=== PATIENT | male | born 1960 | race Caucasian/White ===

== ENCOUNTER → 2016-07-31 | Outpatient (CLI) | payer OTHER ==
--- NOTE | 2016-08-02 11:11 | CARD ---
APPROVED REPORT EXAM: Two-dimensional and M-mode echocardiogram with Doppler and color Doppler. Other Information Quality : GoodHR: 86bpm Rhythm : NSR INDICATION Dizziness and Vertigo Shortness of breath 2D DIMENSIONS RVDd4.0 (2.9-3.5cm)Left Atrium(2D)3.9 (1.6-4.0cm) IVSd1.1 (0.7-1.1cm)Aortic Root(2D)3.5 (2.0-3.7cm) LVDd5.7 (3.9-5.9cm)LVOT Diameter2.6 (1.8-2.4cm) PWd1.0 (0.7-1.1cm)LVDs4.1 (2.5-4.0cm) FS (%) 28.1 %SV86.8 ml LVEF(%)53.7 (>50%) Aortic Valve AoV Peak Kaushik.125.2cm/sAoV VTI27.7cm AO Peak GR.6.3mmHgLVOT Peak Kaushik.92.9cm/s LVOT VTI 19.28cmAO Mean GR.4mmHg SURENDRA (VMAX)3.35mz6HNG (VTI)3.72cm2 Mitral Valve MV E Rbjtexfk99.2cm/sMV DECEL ZTXU384pr MV A Cjxjgtkw710.1cm/sMV E Mean Gr.3mmHg MV HOE25jwB/A Ratio0.9 MV A Xdvfrent38rpUOD (PHT)4.60cm2 TDI E/Lateral E'10.9E/Medial E'11.1 Pulmonary Valve PV Peak Lgksbbwa61.5cm/sPV Peak Grad.2mmHg RVOT VTI12.5cm Tricuspid Valve TR P. Vdsgszai055vp/sRAP SRGDEGTL0cuJj TR Peak Gr.82epEtOABX22qrUf Pulmonary Vein S1 Fhtmzwmt15.9cm/sD2 Mutdowdw78.3cm/s LEFT VENTRICLE The left ventricle is normal size. There is normal left ventricular wall thickness. Left ventricle sy stolic function is normal. The Ejection Fraction is 55-60%. There is normal LV segmental wall motion. Transmitral Doppler flow pattern is Grade I-abnormal relaxation pattern. There is no ventricular sep marshall defect visualized. RIGHT VENTRICLE The right ventricle is normal size. There is normal right ventricular wall thickness. The right ventr icular systolic function is normal. ATRIA The left atrium size is normal. The right atrium size is normal. The interatrial septum is intact wit h no evidence for an atrial septal defect or patent foramen ovale as noted on 2-D or Doppler imaging. AORTIC VALVE The aortic valve is normal in structure and function. The aortic valve is trileaflet. Doppler and Col or Flow revealed no significant aortic regurgitation. There is no significant aortic valvular stenosi s. MITRAL VALVE The mitral valve is normal in structure. There is no evidence of mitral valve prolapse. There is no m itral valve stenosis. Doppler and Color Flow revealed mild mitral regurgitation. TRICUSPID VALVE Doppler and Color Flow revealed trace tricuspid regurgitation. There is no pulmonary hypertension. Th e PA pressure was estimated at 24 mmHg. PULMONIC VALVE Doppler and Color Flow revealed trace pulmonic valvular regurgitation. GREAT VESSELS The aortic root is normal in size. The ascending aorta is normal in size. The pulmonary artery is not well visualized, but is probably normal size. Normal pulmonary venous flow (Doppler). The IVC is nor mal in size and collapses >50% with inspiration. PERICARDIAL EFFUSION There is no evidence of significant pericardial effusion. Critical Notification Critical Value: No <Conclusion> There is normal left ventricular wall thickness. Left ventricle systolic function is normal. The Ejection Fraction is 55-60%. Transmitral Doppler flow pattern is Grade I-abnormal relaxation pattern. There is no evidence of significant pericardial effusion. There is no mitral valve stenosis. Doppler and Color Flow revealed mild mitral regurgitation. The left atrium is of a normal size. There is no aortic stenosis or regurgitation The right ventricle is of a normal size with normal systolic function Doppler and Color Flow revealed trace tricuspid regurgitation. There is no pulmonary hypertension. The PA pressure was estimated at 24 mmHg. The pulmonic valve is normal.
== END | disposition home or self-care (01) ==
LOC: ECHO 07:11
PROVIDERS: ATTEND Internal Medicine Cardiovascular Disease
DX: R42 Dizziness and giddiness (principal); R60.0 Localized edema
CPT/HCPCS: 93306

== ENCOUNTER 2018-04-01 16:23 | Inpatient (IN) | payer OTHER ==
[~2018-04-01] VITALS: Ht 175.3 cm; Wt 133.4 kg
[2018-04-01 17:20] LABS: BASO # 0.1 x10^3/uL (0.0-0.2); BASO % 1 % (0-3); EOS # 0.1 x10^3/uL (0.0-0.7); EOS % 1 % (0-3); HEMATOCRIT 37.3 % (39.0-53.0); HEMOGLOBIN 12.3 g/dL (13.0-17.5); LYMPH # 0.9 x10^3/uL (1.0-4.8); LYMPH % 10 % (24-48); MEAN CORPUSCULAR HEMOGLOBIN 29 pg (25-35); MEAN CORPUSCULAR HGB CONC 33 g/dL (31-37); MEAN CORPUSCULAR VOLUME 88 fL (79-100); MONO # 0.8 x10^3/uL (0.0-1.1); MONO % 9 % (0-9); NEUT # 7.3 x10^3uL (1.8-7.7); NEUT % 80 % (31-73); PLATELET COUNT 264 x10^3/uL (140-400); RED BLOOD COUNT 4.23 x10^6/uL (4.30-5.70); RED CELL DISTRIBUTION WIDTH 15.1 % (11.5-14.5); WHITE BLOOD COUNT 9.2 x10^3/uL (4.0-11.0)
[2018-04-01 17:29] LABS: CALCIUM 7.1 mg/dL (8.5-10.1); CREATININE 6.5 mg/dL (0.7-1.3); GFR 8.8; POTASSIUM 3.2 mmol/L (3.5-5.1)
[2018-04-01 17:38] LABS: ALBUMIN 2.1 g/dL (3.4-5.0); ALBUMIN/GLOBULIN RATIO 0.4 (1.0-1.7); TOTAL BILIRUBIN 0.4 mg/dL (0.2-1.0); TOTAL PROTEIN 6.9 g/dL (6.4-8.2)
[2018-04-01] MEDS ORDERED: ONDANSETRON PF 4 MG/2 ML VIAL. IV PRN (18:30)
[2018-04-01] MEDS ORDERED: MORPHINE SULFATE 4 MG/ML VIAL. IV PRN (18:30)
[2018-04-01] MEDS ORDERED: ACETAMINOPHEN 325 MG TABLET. PO PRN (18:30)
--- NOTE | 2018-04-01 18:34 | PHYS DOC ---
Past Medical History Past Medical History: A-Fib, Diabetes-Type II, High Cholesterol, Renal Failure Past Surgical History: Appendectomy Alcohol Use: None Drug Use: None Adult General Chief Complaint Chief Complaint: CHEST PAIN HPI HPI Patient is a 57 year old male who presents with shortness of breath. Patient has had progressive dyspnea over the last 7-10 days. He came to the ER today because of shortness of breath became too severe. He also had some lower extremity edema. Patient is known to have kidney disease but has not previously undergone dialysis. He denies chest pain. He has no nausea or vomiting. Denies abdominal pain. Review of Systems Review of Systems Constitutional: Denies fever or chills Eyes: Denies change in visual acuity HENT: Denies nasal congestion Respiratory: Denies cough Cardiovascular: No additional information not addressed in HPI GI: Denies abdominal pain : Denies dysuria or hematuria Musculoskeletal: Denies back pain Integument: Denies rash Neurologic: Denies focal neuro complaints All other systems were reviewed and found to be within normal limits, except as documented in this note. Current Medications Current Medications Current Medications Medications (Trade) Dose Ordered Sig/Ayo Start Time Stop Time Status Last Admin Dose Admin Acetaminophen (Tylenol) 650 mg PRN Q4HRS PRN 04/01/18 18:30 04/02/18 18:29 Diltiazem HCl (Cardizem) 10 mg 1X ONCE 04/01/18 18:45 04/01/18 18:46 04/01/18 18:30 10 MG Diltiazem HCl 125 mg/Dextrose 125 ml @ 10 mls/hr 1X ONCE 04/01/18 18:45 04/02/18 07:14 Morphine Sulfate (Morphine Sulfate) 4 mg PRN Q2HR PRN 04/01/18 18:30 04/02/18 18:29 Ondansetron HCl (Zofran) 4 mg PRN Q8HRS PRN 04/01/18 18:30 04/02/18 18:29 Allergies Allergies Allergies Coded Allergies Type Severity Reaction Last Updated Verified No Known Drug Allergies 04/01/18 No Physical Exam Physical Exam Constitutional: Well developed, obese male in mild respiratory distress HENT: Normocephalic, atraumatic, bilateral external ears normal, oropharynx moist Eyes: PERRLA, EOMI Neck: Normal range of motion Cardiovascular:Heart rate regular rhythm, no murmur Lungs & Thorax: diminished with some expiratory wheezes Abdomen: Bowel sounds normal, soft, no tenderness, Skin: Warm, dry Extremities: 3+ edema bilateral lower extremities Neurologic: Alert and oriented X 3 Psychologic: Affect normal Current Patient Data Vital Signs Vital Signs Date Time Temp Pulse Resp B/P (MAP) Pulse Ox O2 Delivery O2 Flow Rate FiO2 04/01/18 18:30 130 131/62 04/01/18 16:34 97.8 22 97 Room Air 97.8 Lab Values Laboratory Tests Test 04/01/18 17:05 White Blood Count 9.2 x10^3/uL (4.0-11.0) Red Blood Count 4.23 x10^6/uL (4.30-5.70) L Hemoglobin 12.3 g/dL (13.0-17.5) L Hematocrit 37.3 % (39.0-53.0) L Mean Corpuscular Volume 88 fL (79-100) Mean Corpuscular Hemoglobin 29 pg (25-35) Mean Corpuscular Hemoglobin Concent 33 g/dL (31-37) Red Cell Distribution Width 15.1 % (11.5-14.5) H Platelet Count 264 x10^3/uL (140-400) Neutrophils (%) (Auto) 80 % (31-73) H Lymphocytes (%) (Auto) 10 % (24-48) L Monocytes (%) (Auto) 9 % (0-9) Eosinophils (%) (Auto) 1 % (0-3) Basophils (%) (Auto) 1 % (0-3) Neutrophils # (Auto) 7.3 x10^3uL (1.8-7.7) Lymphocytes # (Auto) 0.9 x10^3/uL (1.0-4.8) L Monocytes # (Auto) 0.8 x10^3/uL (0.0-1.1) Eosinophils # (Auto) 0.1 x10^3/uL (0.0-0.7) Basophils # (Auto) 0.1 x10^3/uL (0.0-0.2) Sodium Level 139 mmol/L (136-145) Potassium Level 3.2 mmol/L (3.5-5.1) L Chloride Level 103 mmol/L (98-107) Carbon Dioxide Level 24 mmol/L (21-32) Anion Gap 12 (6-14) Blood Urea Nitrogen 62 mg/dL (8-26) H Creatinine 6.5 mg/dL (0.7-1.3) H Estimated GFR (Cockcroft-Gault) 8.8 BUN/Creatinine Ratio 10 (6-20) Glucose Level 107 mg/dL (70-99) H Calcium Level 7.1 mg/dL (8.5-10.1) L Phosphorus Level 6.6 mg/dL (2.6-4.7) H Magnesium Level 2.6 mg/dL (1.8-2.4) H Total Bilirubin 0.4 mg/dL (0.2-1.0) Aspartate Amino Transferase (AST) 30 U/L (15-37) Alanine Aminotransferase (ALT) 10 U/L (16-63) L Alkaline Phosphatase 106 U/L (46-116) Troponin I Quantitative < 0.017 ng/mL (0.000-0.055) WG-Flr-D-Type Natriuretic Peptide > 65474 pg/mL (0-124) H Total Protein 6.9 g/dL (6.4-8.2) Albumin 2.1 g/dL (3.4-5.0) L Albumin/Globulin Ratio 0.4 (1.0-1.7) L Laboratory Tests 04/01/18 17:05 Laboratory Tests 04/01/18 17:05 EKG EKG Atrial Fibrillation Radiology/Procedures Radiology/Procedures CXR: Vascular congestion Course & Med Decision Making Course & Med Decision Making Pertinent Labs and Imaging studies reviewed. (See chart for details) I saw this patient briefly. The patient was a turnover from the mid-level practitioner. Plan was for admission to the hospital. Dr. Welch had already been contacted. Dr. Scruggs had already been consulted and evaluated the patient. He recommended diltiazem 10 mg bolus and 10 mg drip which is started in the emergency department. I did reexamine this patient. He has prolonged x-ray phase and some extra wheezes with mild dyspnea. His oxygen saturation is 95%. I recommended he be placed on some oxygen per nasal cannula to see if this subjectively made him feel better. I also ordered and an albuterol treatment. Patient will be admitted to the telemetry [facility]. Patient has no chest pain or other acute complaints at this time. Maria Antonia Royimer Dragon Disclaimer This electronic medical record was generated, in whole or in part, using a voice recognition dictation system. Departure Departure Impression: Primary Impression: Acute renal failure Additional Impression: Atrial fibrillation Disposition: 09 ADMITTED INPATIENT Condition: STABLE Problem Qualifiers GINGER MARTINEZ DO Apr 01, 2018 18:34
[2018-04-01] MEDS ORDERED: dilTIAZem IV PUSH 25 MG/5 ML VIAL IVP ONE (18:45)
[2018-04-01] MEDS ORDERED: dilTIAZem INJ 125 MG in IV DEXTROSE 5% 100ML 100 ML IV ONE (18:45)
[2018-04-01] MEDS ORDERED: ALBUTEROL SULFATE 2.5 MG/3 ML NEBU. NEB ONE (19:15)
[2018-04-01] MEDS ORDERED: PIOG30TA41 PO (20:09)
[2018-04-01] MEDS ORDERED: ATOR40TA PO (20:10)
[2018-04-01] MEDS ORDERED: FURO80TA72 PO (20:10)
[2018-04-01] MEDS ORDERED: INSU100I13 SQ (20:11)
[2018-04-01] MEDS: HYDROcodone/APAP 5/325MG 1 TAB TABLET PO PRN (20:33)
[2018-04-01] MEDS: INSULIN GLARGINE 300 UNITS/3 ML INSULN.PEN. SQ SCH (20:50)
[2018-04-01 20:53] LABS: BILIRUBIN,URINE NEGATIVE (NEG); CLARITY,URINE CLEAR; COLOR,URINE YELLOW; NITRITE,URINE NEGATIVE (NEG); PH,URINE 5.5; PROTEIN,URINE >=300 mg/dL (NEG-TRACE); UROBILINOGEN,URINE 0.2 mg/dL (0.2 mg/dL)
[2018-04-01 20:58] LABS: AMORPHOUS SEDIMENT,UR PRESENT /HPF; BACTERIA,URINE 0 /HPF (0-FEW); HYALINE CASTS, URINE FEW /HPF; RBC,URINE OCC /HPF (0-2); SQUAMOUS EPITHELIAL CELL,UR OCC /LPF
[2018-04-01 20:59] LABS: GRANULAR CASTS,URINE OCCASIONAL /HPF
[2018-04-01 21:00] VITALS: BP 111/79
[2018-04-01 22:00] VITALS: BP 144/73
[2018-04-01 23:00] VITALS: BP 127/67
[2018-04-01 23:59] VITALS: BP 125/79
[2018-04-02] VITALS (13 sets, daily range): BP systolic 108–153; BP diastolic 65–89
[2018-04-02] MEDS: dilTIAZem INJ 125 MG in IV DEXTROSE 5% 100ML 100 ML IV PRN ×3 (02:55→20:57)
[2018-04-02 05:00] LABS: BASO # 0.1 x10^3/uL (0.0-0.2); BASO % 1 % (0-3); EOS % 0 % (0-3); HEMOGLOBIN 11.8 g/dL (13.0-17.5); LYMPH # 0.6 x10^3/uL (1.0-4.8); LYMPH % 4 % (24-48); MEAN CORPUSCULAR HEMOGLOBIN 29 pg (25-35); MEAN CORPUSCULAR HGB CONC 33 g/dL (31-37); MEAN CORPUSCULAR VOLUME 88 fL (79-100); MONO # 1.2 x10^3/uL (0.0-1.1); MONO % 8 % (0-9); NEUT # 12.9 x10^3uL (1.8-7.7); NEUT % 87 % (31-73); PLATELET COUNT 272 x10^3/uL (140-400); RED BLOOD COUNT 4.09 x10^6/uL (4.30-5.70); RED CELL DISTRIBUTION WIDTH 14.6 % (11.5-14.5); WHITE BLOOD COUNT 14.9 x10^3/uL (4.0-11.0)
[2018-04-02 05:16] LABS: CALCIUM 7.1 mg/dL (8.5-10.1); GFR 8.1; POTASSIUM 3.3 mmol/L (3.5-5.1)
--- NOTE | 2018-04-02 06:19 | EKG ---
[facility] [address] [place] [address] Test Date: 2018-04-01 Test Time: 16:31:53 Pat Name: MIRACLE MASON Department: Room: 268 1 Gender: M Clay Miller: : 1960 Requested By: DESIREE TAPIA Order Number: [id number] Reading MD: Faraz Garcia Measurements Intervals [place] Rate: 136 P: WI: QRS: -16 QRSD: 84 T: 32 QT: 330 QTc: 500 Interpretive Statements ATRIAL FIBRILLATION Electronically Signed On 04-03-2018 11:24:39 CDT by Faraz Garcia
[2018-04-02 07:41] LABS: % BANDS 5 % (0-9); % LYMPHS 9 % (24-48); % MONOS 5 % (0-10); % SEGS 81 % (35-66); PLT ESTIMATE ADEQUATE (ADEQUATE)
[2018-04-02] MEDS ORDERED: LIDOCAINE WITH 8.4% SOD BICARB 3 ML DISP.SYRIN. ONE (08:14)
[2018-04-02] MEDS ORDERED: HEPARIN for IV BOLUS 10,000 UNIT/10 ML VIAL. ONE (08:16)
--- NOTE | 2018-04-02 08:22 | RAD ---
CHEST AP ONLY Clinical Indication: ATRAUMATIC CHEST PAIN, SHORTNESS OF AIR X2 DAYS. Hx Afib, DIABETES. Comparison: None. Findings: Cardiac size upper limits of normal. Calcified granuloma left midlung. Mild left basilar airspace disease. Mild elevation right hemidiaphragm. There is no pneumothorax. No pleural effusion is appreciated. No acute bone abnormality. IMPRESSION: Mild left basilar airspace disease. Electronically signed by: Nicolas Huang MD (04/02/2018 8:19 AM) [id number]
--- NOTE | 2018-04-02 08:47 | PDOC2 ---
CONSULT Date of Consult Date of Consult DATE: 04/02/18 TIME: 08:39 Reason for Consult Reason for Consult: shortness of breath, afib Referring Physician Referring Physician: Dr. Juan Welch Identification/Chief Complaint Chief Complaint shortness of breath Source Source: Patient History of Present Illness Reason for Visit: Travon Garcia is a 57 year old male with history of CKD, presenting to the with progressive shortness of breath over the past one week. When he woke up on 04/01 , he said he could barely breath, so he asked his brother to bring him to the ED. While in the ED, he was found to be in afib with RVR of 130s, and was started on a diltiazam drip, with his rate slowing to the low 100s. The patient has had to remain on NC-3L since coming into the hospital. At this time his shortness of breath has much improved, but he has still required to remain on the oxygen. He denies any chest pain throughout the last week and hospitalization. He denies having symptoms like this in the past. Past Medical History Cardiovascular: HTN, Other (patient had history of rheumatic fever, was treated from age [age]) Pulmonary: No pertinent hx GI: No pertinent hx Heme/Onc: No pertinent hx Hepatobiliary: No pertinent hx Psych: No pertinent hx Renal/: Chronic renal failure (CKD secondary to diabetes, never been on dialysis) Endocrine: Diabetes Social History No ALCOHOL: none Drugs: None Current Problem List Problem List Problems Medical Problems: (1) Acute renal failure Status: Acute (2) Atrial fibrillation Status: Acute Current Medications Current Medications Current Medications Diltiazem HCl (Cardizem) 10 mg 1X ONCE IVP Last administered on 04/01/18at 18: 30; Start 04/01/18 at 18:45; Stop 04/01/18 at 18:46; Status DC Diltiazem HCl 125 mg/Dextrose 125 ml @ 10 mls/hr 1X ONCE IV Last administered on 04/01/18at 20:34; Start 04/01/18 at 18:45; Stop 04/02/18 at 07 :14; Status DC Ondansetron HCl (Zofran) 4 mg PRN Q8HRS PRN IV NAUSEA/VOMITING; Start at 18:30; Stop 04/02/18 at 18:29 Morphine Sulfate (Morphine Sulfate) 4 mg PRN Q2HR PRN IV PAIN Last administered on 04/01/18at 21:39; Start 04/01/18 at 18:30; Stop 04/02/18 at 18 :29 Acetaminophen (Tylenol) 650 mg PRN Q4HRS PRN PO FEVER; Start 04/01/18 at 18:30 ; Stop 04/02/18 at 18:29 Albuterol Sulfate (Ventolin Neb Soln) 2.5 mg 1X ONCE NEB Last administered on 04/01/18at 20:53; Start 04/01/18 at 19:15; Stop 04/01/18 at 19:16; Status DC Acetaminophen/ Hydrocodone Bitart (Lortab 5/325) 1 tab PRN Q4HRS PRN PO PAIN Last administered on 04/01/18at 20:33; Start 04/01/18 at 20:15 Atorvastatin Calcium (Lipitor) 40 mg DAILY08 PO ; Start 04/02/18 at 08:00 Insulin Glargine (Lantus) 14 units QHS SQ Last administered on 04/01/18at 20:50 ; Start 04/01/18 at 21:00 Diltiazem HCl 125 mg/Dextrose 125 ml @ 5 mls/hr CONT PRN IV SEE I/O RECORD Last administered on 04/02/18at 02:55; Start 04/02/18 at 01:45 Lidocaine/Sodium Bicarbonate (Buffered Lidocaine 1%) 3 ml STK-MED ONCE .ROUTE ; Start 04/02/18 at 08:14; Stop 04/02/18 at 08:15; Status DC Heparin Sodium (Porcine) (Heparin Sodium) 10,000 unit STK-MED ONCE .ROUTE ; Start 04/02/18 at 08:16; Stop 04/02/18 at 08:17; Status DC Active Scripts Active Reported Lantus Solostar (Insulin Glargine,Hum.rec.anlog) 100 Unit/1 Ml Insuln.pen 14 Unit SQ QHS Lasix (Furosemide) 80 Mg Tablet 1 Tab PO DAILY Lipitor (Atorvastatin Calcium) 40 Mg Tablet 1 Tab PO DAILY08 Actos (Pioglitazone Hcl) 30 Mg Tablet 1 Tab PO DAILY Allergies Allergies: Coded Allergies: No Known Drug Allergies (Unverified , 04/01/18) ROS General: No: Chills, Fatigue, Malaise Eyes: No Blurry vision, No Decreased vision, No Double vision, No Loss of vision HEENT: No: Heacaches, Visual Changes, Tinnitus, Vertigo Respiratory: YES: Shortness of breath (shortness of breath resolving from 04/01 ) Cardiovascular: yes Edema; No Chest Pain Gastrointestinal: No Nausea, No Vomiting, No Abdominal Pain Physical Exam General: Alert, Oriented X3, Cooperative, No acute distress Lungs: Clear to auscultation, Normal air movement Heart: Other (irreguarly irregular rhytmn, S1, S1, no murmur rubs or gallops) Extremities: No clubbing, No cyanosis, Other (lower extremity edema +2/4) Vitals VITALS Vital Signs Date Time Temp Pulse Resp B/P (MAP) Pulse Ox O2 Delivery O2 Flow Rate FiO2 04/02/18 05:07 107 20 115/65 (82) 93 Nasal Cannula 3.0 04/02/18 02:59 98.1 98.1 Labs Labs Laboratory Tests Test 04/01/18 17:05 04/01/18 20:30 04/01/18 20:42 04/02/18 04:40 White Blood Count 9.2 x10^3/uL (4.0-11.0) 14.9 x10^3/uL (4.0-11.0) Red Blood Count 4.23 x10^6/uL (4.30-5.70) 4.09 x10^6/uL (4.30-5.70) Hemoglobin 12.3 g/dL (13.0-17.5) 11.8 g/dL (13.0-17.5) Hematocrit 37.3 % (39.0-53.0) 36.0 % (39.0-53.0) Mean Corpuscular Volume 88 fL (79-100) 88 fL (79-100) Mean Corpuscular Hemoglobin 29 pg (25-35) 29 pg (25-35) Mean Corpuscular Hemoglobin Concent 33 g/dL (31-37) 33 g/dL (31-37) Red Cell Distribution Width 15.1 % (11.5-14.5) 14.6 % (11.5-14.5) Platelet Count 264 x10^3/uL (140-400) 272 x10^3/uL (140-400) Neutrophils (%) (Auto) 80 % (31-73) 87 % (31-73) Lymphocytes (%) (Auto) 10 % (24-48) 4 % (24-48) Monocytes (%) (Auto) 9 % (0-9) 8 % (0-9) Eosinophils (%) (Auto) 1 % (0-3) 0 % (0-3) Basophils (%) (Auto) 1 % (0-3) 1 % (0-3) Neutrophils # (Auto) 7.3 x10^3uL (1.8-7.7) 12.9 x10^3uL (1.8-7.7) Lymphocytes # (Auto) 0.9 x10^3/uL (1.0-4.8) 0.6 x10^3/uL (1.0-4.8) Monocytes # (Auto) 0.8 x10^3/uL (0.0-1.1) 1.2 x10^3/uL (0.0-1.1) Eosinophils # (Auto) 0.1 x10^3/uL (0.0-0.7) 0.0 x10^3/uL (0.0-0.7) Basophils # (Auto) 0.1 x10^3/uL (0.0-0.2) 0.1 x10^3/uL (0.0-0.2) Sodium Level 139 mmol/L (136-145) 141 mmol/L (136-145) Potassium Level 3.2 mmol/L (3.5-5.1) 3.3 mmol/L (3.5-5.1) Chloride Level 103 mmol/L (98-107) 103 mmol/L (98-107) Carbon Dioxide Level 24 mmol/L (21-32) 25 mmol/L (21-32) Anion Gap 12 (6-14) 13 (6-14) Blood Urea Nitrogen 62 mg/dL (8-26) 62 mg/dL (8-26) Creatinine 6.5 mg/dL (0.7-1.3) 7.0 mg/dL (0.7-1.3) Estimated GFR (Cockcroft-Gault) 8.8 8.1 BUN/Creatinine Ratio 10 (6-20) Glucose Level 107 mg/dL (70-99) 99 mg/dL (70-99) Calcium Level 7.1 mg/dL (8.5-10.1) 7.1 mg/dL (8.5-10.1) Phosphorus Level 6.6 mg/dL (2.6-4.7) Magnesium Level 2.6 mg/dL (1.8-2.4) Total Bilirubin 0.4 mg/dL (0.2-1.0) Aspartate Amino Transf (AST/SGOT) 30 U/L (15-37) Alanine Aminotransferase (ALT/SGPT) 10 U/L (16-63) Alkaline Phosphatase 106 U/L (46-116) Troponin I Quantitative < 0.017 ng/mL (0.000-0.055) OX-Akh-Y-Type Natriuretic Peptide > 69093 pg/mL (0-124) Total Protein 6.9 g/dL (6.4-8.2) Albumin 2.1 g/dL (3.4-5.0) Albumin/Globulin Ratio 0.4 (1.0-1.7) Urine Collection Type Unknown Urine Color Yellow Urine Clarity Clear Urine pH 5.5 Urine Specific Morgan 1.020 Urine Protein >=300 mg/dL (NEG-TRACE) Urine Glucose (UA) 100 mg/dL (NEG) Urine Ketones (Stick) Trace mg/dL (NEG) Urine Blood Small (NEG) Urine Nitrite Negative (NEG) Urine Bilirubin Negative (NEG) Urine Urobilinogen Dipstick 0.2 mg/dL (0.2 mg/dL) Urine Leukocyte Esterase Negative (NEG) Urine RBC Occ /HPF (0-2) Urine WBC 5-10 /HPF (0-4) Urine Squamous Epithelial Cells Occ /LPF Urine Amorphous Sediment Present /HPF Urine Bacteria 0 /HPF (0-FEW) Urine Hyaline Casts Few /HPF Urine Granular Casts Occasional /HPF Urine Mucus Slight /LPF Glucose (Fingerstick) 152 mg/dL (70-99) Segmented Neutrophils % 81 % (35-66) Band Neutrophils % 5 % (0-9) Lymphocytes % 9 % (24-48) Monocytes % 5 % (0-10) Platelet Estimate Adequate (ADEQUATE) Laboratory Tests Test 04/01/18 17:05 04/01/18 20:30 04/01/18 20:42 10/24/18 04:40 White Blood Count 9.2 x10^3/uL (4.0-11.0) 14.9 x10^3/uL (4.0-11.0) Red Blood Count 4.23 x10^6/uL (4.30-5.70) 4.09 x10^6/uL (4.30-5.70) Hemoglobin 12.3 g/dL (13.0-17.5) 11.8 g/dL (13.0-17.5) Hematocrit 37.3 % (39.0-53.0) 36.0 % (39.0-53.0) Mean Corpuscular Volume 88 fL (79-100) 88 fL (79-100) Mean Corpuscular Hemoglobin 29 pg (25-35) 29 pg (25-35) Mean Corpuscular Hemoglobin Concent 33 g/dL (31-37) 33 g/dL (31-37) Red Cell Distribution Width 15.1 % (11.5-14.5) 14.6 % (11.5-14.5) Platelet Count 264 x10^3/uL (140-400) 272 x10^3/uL (140-400) Neutrophils (%) (Auto) 80 % (31-73) 87 % (31-73) Lymphocytes (%) (Auto) 10 % (24-48) 4 % (24-48) Monocytes (%) (Auto) 9 % (0-9) 8 % (0-9) Eosinophils (%) (Auto) 1 % (0-3) 0 % (0-3) Basophils (%) (Auto) 1 % (0-3) 1 % (0-3) Neutrophils # (Auto) 7.3 x10^3uL (1.8-7.7) 12.9 x10^3uL (1.8-7.7) Lymphocytes # (Auto) 0.9 x10^3/uL (1.0-4.8) 0.6 x10^3/uL (1.0-4.8) Monocytes # (Auto) 0.8 x10^3/uL (0.0-1.1) 1.2 x10^3/uL (0.0-1.1) Eosinophils # (Auto) 0.1 x10^3/uL (0.0-0.7) 0.0 x10^3/uL (0.0-0.7) Basophils # (Auto) 0.1 x10^3/uL (0.0-0.2) 0.1 x10^3/uL (0.0-0.2) Sodium Level 139 mmol/L (136-145) 141 mmol/L (136-145) Potassium Level 3.2 mmol/L (3.5-5.1) 3.3 mmol/L (3.5-5.1) Chloride Level 103 mmol/L (98-107) 103 mmol/L (98-107) Carbon Dioxide Level 24 mmol/L (21-32) 25 mmol/L (21-32) Anion Gap 12 (6-14) 13 (6-14) Blood Urea Nitrogen 62 mg/dL (8-26) 62 mg/dL (8-26) Creatinine 6.5 mg/dL (0.7-1.3) 7.0 mg/dL (0.7-1.3) Estimated GFR (Cockcroft-Gault) 8.8 8.1 BUN/Creatinine Ratio 10 (6-20) Glucose Level 107 mg/dL (70-99) 99 mg/dL (70-99) Calcium Level 7.1 mg/dL (8.5-10.1) 7.1 mg/dL (8.5-10.1) Phosphorus Level 6.6 mg/dL (2.6-4.7) Magnesium Level 2.6 mg/dL (1.8-2.4) Total Bilirubin 0.4 mg/dL (0.2-1.0) Aspartate Amino Transf (AST/SGOT) 30 U/L (15-37) Alanine Aminotransferase (ALT/SGPT) 10 U/L (16-63) Alkaline Phosphatase 106 U/L (46-116) Troponin I Quantitative < 0.017 ng/mL (0.000-0.055) WQ-Izh-A-Type Natriuretic Peptide > 96937 pg/mL (0-124) Total Protein 6.9 g/dL (6.4-8.2) Albumin 2.1 g/dL (3.4-5.0) Albumin/Globulin Ratio 0.4 (1.0-1.7) Urine Collection Type Unknown Urine Color Yellow Urine Clarity Clear Urine pH 5.5 Urine Specific Morgan 1.020 Urine Protein >=300 mg/dL (NEG-TRACE) Urine Glucose (UA) 100 mg/dL (NEG) Urine Ketones (Stick) Trace mg/dL (NEG) Urine Blood Small (NEG) Urine Nitrite Negative (NEG) Urine Bilirubin Negative (NEG) Urine Urobilinogen Dipstick 0.2 mg/dL (0.2 mg/dL) Urine Leukocyte Esterase Negative (NEG) Urine RBC Occ /HPF (0-2) Urine WBC 5-10 /HPF (0-4) Urine Squamous Epithelial Cells Occ /LPF Urine Amorphous Sediment Present /HPF Urine Bacteria 0 /HPF (0-FEW) Urine Hyaline Casts Few /HPF Urine Granular Casts Occasional /HPF Urine Mucus Slight /LPF Glucose (Fingerstick) 152 mg/dL (70-99) Segmented Neutrophils % 81 % (35-66) Band Neutrophils % 5 % (0-9) Lymphocytes % 9 % (24-48) Monocytes % 5 % (0-10) Platelet Estimate Adequate (ADEQUATE) Assessment/Plan Assessment/Plan This patient comes in with dyspnea and appears to be overloaded at this time. He has chronic renal failure and the creatinine is over 6 at this point. I agree with the evaluation of the patient and that he needs to have a dialysis catheter inserted and to start with hemodialysis. He arrived in atrial fibrillation with a rapid ventricular response and a Cardizem drip was started to control the rate. I would continue with the drip and in the morning if the rhythm is stable we will switch him to by mouth Cardizem. Thank you very much for asking me to participate in the care of this patient DANTE FERNÁNDEZ MD Apr 02, 2018 08:47
[2018-04-02] MEDS ORDERED: LIDOCAINE WITH 8.4% SOD BICARB 3 ML DISP.SYRIN. INJ ONE (09:30)
--- NOTE | 2018-04-02 10:39 | HP ---
ADMIT DATE: 04/01/2018 CHIEF COMPLAINT AND HISTORY OF PRESENT ILLNESS: This is a 57-year-old white male who is well known to me from followup in the office. The patient is known to have end-stage renal disease and had an AV shunt fistula placed some 2 weeks ago; and he got feeling much worse with shortness of breath, progressive tiredness and decreased appetite and came to the Emergency Room, where it was felt he was in congestive heart failure with fluid overload diffusely with anasarca, BNP greater than 35,000 and admitted for placement of a dialysis catheter and beginning dialysis, as his AV fistula is not mature enough at this point to use. PAST MEDICAL HISTORY: Remarkable for the renal failure, hyperlipidemia, diabetes and AFib. PAST SURGICAL HISTORY: Remarkable for an appendectomy. MEDICATIONS: Medications were brought with the patient, listed on the computer and have been addressed. ALLERGIES: He has no known drug allergies. SOCIAL HISTORY: Noncontributory. FAMILY HISTORY: Noncontributory. REVIEW OF SYSTEMS: As mentioned above. PHYSICAL EXAMINATION: GENERAL: He is a well-developed, well-nourished male, who just finished vomiting and appears miserable. VITAL SIGNS: Stable. He is afebrile. Pulse is elevated in the 120s. HEAD, EYES, EARS, NOSE AND THROAT: Unremarkable. NECK: Supple, without any thyromegaly. CHEST: Reveals occasional crackles. HEART: Irregularly irregular with a rate of 120. ABDOMEN: Soft, nontender, without hepatosplenomegaly or mass. EXTREMITIES: Reveal 3+ edema. NEUROLOGICAL EXAMINATION: Intact. Family members are present at the bedside. LABORATORY DATA: Initial laboratory is remarkable for potassium of 3.2, BUN of 62 and creatinine 6.5. BNP greater than 35,000. Albumin is 2.1. Initial white count is 9200, hemoglobin 12.3 and platelet count 264,000. Urinalysis is unremarkable and chest x-ray shows no acute changes. IMPRESSION: 1. End-stage renal disease with azotemia, fluid overload and congestive heart failure. 2. Atrial fibrillation. 3. Diabetes. PLAN: The patient has been admitted. He is on a Cardizem drip for the AFib with a rapid ventricular response. We will get dialysis catheter with dialysis to start on 04/02/2018 and we will follow him. RERE MCGARRY MD DR: Cookie JOB#: [id number] / [id number]
[2018-04-02] MEDS: ATORVASTATIN CALCIUM 40 MG TABLET. PO SCH (11:17)
[2018-04-02] MEDS ORDERED: IV NORMAL SALINE 1000ML BAG 1,000 ML IV PRN ×2 (11:28)
[2018-04-02] MEDS ORDERED: DIALYSIS PATIENT. MC PRN ×2 (11:30)
--- NOTE | 2018-04-02 11:49 | RAD ---
Procedure: Temporary hemodialysis catheter placement under fluoroscopy Clinical Indication: 57-year-old with acute renal failure requiring hemodialysis Sedation: Local anesthesia only Antibiotics: None Fluoro Time: 0.2 minutes. Images: 1 Contrast: None Sterility: All elements of maximal sterile barrier technique including the use of a cap, mask, sterile gown, sterile gloves, large sterile sheet, appropriate hand hygiene, and 2% chlorhexidine for cutaneous antisepsis (or acceptable alternative antiseptic per current guidelines) were followed for this procedure. Consent: The procedure was explained in its entirety to the patient or the patients designated product support sales representative by a member of the treatment team, including a discussion of the risks, benefits and commonly accepted alternatives to the procedure, as well as the expected consequences of no therapy whatsoever. Discussion of the risks included, but was not limited to, those that are most frequent and those that are rare but possibly severe or life-threatening, as well as the possibility of unforeseen complications. Technique and Findings: Following informed consent, the patient was prepped and draped in the usual sterile fashion. Ultrasound interrogation of the right neck revealed patency and compressibility of the right internal jugular vein. A 21-gauge micropuncture needle was used to gain access to this vein after 1% Lidocaine was used to achieve local anesthesia. A hardcopy ultrasound image was recorded. The needle was exchanged over a wire for serial dilators followed by a 20 cm Schon temporary hemodialysis catheter which was deployed under fluoroscopic guidance such that the distal tip resided in the mid right atrium. The catheter flow rates were assessed manually and found to be excellent. The catheter was then flushed, packed with Heparin, capped, and sutured to the skin. Complications: No immediate Impression: 1. Ultrasound and fluoroscopic guided placement of a temporary hemodialysis catheter which exhibits excellent manual flow rates as described.
--- NOTE | 2018-04-02 12:33 | PDOC2 ---
CONSULT Date of Consult Date of Consult DATE: 04/02/18 TIME: 12:27 Reason for Consult Reason for Consult: RENAL FAILURE Referring Physician Referring Physician: MALGORZATA Identification/Chief Complaint Chief Complaint SOB Source Source: Chart review, Patient History of Present Illness Reason for Visit: THIS IS A 57 YR WITH ADVANCE CKD STAGE 4. HE HAS PROGRESSION LATELY AND NOW COMES IN WITH SOB, LE EDEMA AND AFIB RVR. HIS CR IS 7.0. HE HAS CKD DUE TO DM II AND HTN. NO OTHER HX NOTED. NO CHEST PAIN REPORTED BUT DID HAVE PALPITATIONS AND ASSOCIATED SOB. LABS ARE C/W ESRD. HE HAS BEEN PREPARING TO START HD. HE DOES HAVE AN AVF IN THE LEFT ARM PLACED ABOUT 2 WEEKS AGO AND IT IS CLEARLY NOT MATURE YET FOR CANNULATION Past Medical History Cardiovascular: HTN, Other (patient had history of rheumatic fever, was treated from age [age]) Pulmonary: No pertinent hx GI: No pertinent hx Heme/Onc: No pertinent hx Hepatobiliary: No pertinent hx Psych: No pertinent hx Renal/: Chronic renal failure (CKD secondary to diabetes, never been on dialysis) Endocrine: Diabetes Social History No ALCOHOL: none Drugs: None Current Problem List Problem List Problems Medical Problems: (1) Acute renal failure Status: Acute (2) Atrial fibrillation Status: Acute Current Medications Current Medications Current Medications Diltiazem HCl (Cardizem) 10 mg 1X ONCE IVP Last administered on 04/01/18at 18: 30; Start 04/01/18 at 18:45; Stop 04/01/18 at 18:46; Status DC Diltiazem HCl 125 mg/Dextrose 125 ml @ 10 mls/hr 1X ONCE IV Last administered on 04/01/18at 20:34; Start 04/01/18 at 18:45; Stop 04/02/18 at 07 :14; Status DC Ondansetron HCl (Zofran) 4 mg PRN Q8HRS PRN IV NAUSEA/VOMITING; Start at 18:30; Stop 04/02/18 at 18:29 Morphine Sulfate (Morphine Sulfate) 4 mg PRN Q2HR PRN IV PAIN Last administered on 04/01/18at 21:39; Start 04/01/18 at 18:30; Stop 04/02/18 at 18 :29 Acetaminophen (Tylenol) 650 mg PRN Q4HRS PRN PO FEVER; Start 04/01/18 at 18:30 ; Stop 04/02/18 at 18:29 Albuterol Sulfate (Ventolin Neb Soln) 2.5 mg 1X ONCE NEB Last administered on 04/01/18at 20:53; Start 04/01/18 at 19:15; Stop 04/01/18 at 19:16; Status DC Acetaminophen/ Hydrocodone Bitart (Lortab 5/325) 1 tab PRN Q4HRS PRN PO PAIN Last administered on 04/01/18at 20:33; Start 04/01/18 at 20:15 Atorvastatin Calcium (Lipitor) 40 mg DAILY08 PO Last administered on at 11:17; Start 04/02/18 at 08:00 Insulin Glargine (Lantus) 14 units QHS SQ Last administered on 04/01/18at 20:50 ; Start 04/01/18 at 21:00 Diltiazem HCl 125 mg/Dextrose 125 ml @ 5 mls/hr CONT PRN IV SEE I/O RECORD Last administered on 04/02/18at 02:55; Start 04/02/18 at 01:45 Lidocaine/Sodium Bicarbonate (Buffered Lidocaine 1%) 3 ml STK-MED ONCE .ROUTE ; Start 04/02/18 at 08:14; Stop 04/02/18 at 08:15; Status DC Heparin Sodium (Porcine) (Heparin Sodium) 10,000 unit STK-MED ONCE .ROUTE ; Start 04/02/18 at 08:16; Stop 04/02/18 at 08:17; Status DC Lidocaine/Sodium Bicarbonate (Buffered Lidocaine 1%) 6 ml 1X ONCE INJ Last administered on 04/02/18at 09:36; Start 04/02/18 at 09:30; Stop 04/02/18 at 09 :31; Status DC Heparin Sodium (Porcine) (Heparin Sodium) 2,500 unit 1X ONCE INT CAT Last administered on 04/02/18at 09:36; Start 04/02/18 at 09:45; Stop 04/02/18 at 09 :46; Status DC Sodium Chloride 1,000 ml @ 1,000 mls/hr Q1H PRN IV hypotension; Start at 11:28; Stop 04/02/18 at 17:27 Sodium Chloride 1,000 ml @ 400 mls/hr Q2H30M PRN IV PATENCY; Start 04/02/18 at 11:28; Stop 04/02/18 at 23:27 Info (PHARMACY MONITORING -- do not chart) 1 each PRN DAILY PRN MC SEE COMMENTS ; Start 04/02/18 at 11:30; Status UNV Info (PHARMACY MONITORING -- do not chart) 1 each PRN DAILY PRN MC SEE COMMENTS ; Start 04/02/18 at 11:30 Active Scripts Active Reported Lantus Solostar (Insulin Glargine,Hum.rec.anlog) 100 Unit/1 Ml Insuln.pen 14 Unit SQ QHS Lasix (Furosemide) 80 Mg Tablet 1 Tab PO DAILY Lipitor (Atorvastatin Calcium) 40 Mg Tablet 1 Tab PO DAILY08 Actos (Pioglitazone Hcl) 30 Mg Tablet 1 Tab PO DAILY Allergies Allergies: Coded Allergies: No Known Drug Allergies (Unverified , 04/01/18) ROS General: YES: Fatigue, Malaise, Appetite PSYCHOLOGICAL ROS: YES: Anxiety, Depression Eyes: Yes Decreased vision HEENT: YES: Heacaches Respiratory: YES: Cough, Shortness of breath, SOB with excertion Cardiovascular: yes Palpitations, yes Orthopnea, yes Edema Gastrointestinal: Yes Constipation Genitourinary: YES Other (NOCTURIA) Neurological: Yes Weakness Skin: Yes Dry Skin Physical Exam General: Alert, Oriented X3, Cooperative, No acute distress HEENT: Atraumatic, PERRLA, EOMI, Mucous membr. moist/pink Lungs: Other (BASILAR RALES) Heart: Regular rate Abdomen: Normal bowel sounds, Soft Extremities: No cyanosis Neuro: Normal speech, Cranial nerves 3-12 NL Psych/Mental Status: Mental status NL, Mood NL MUSCULOSKELETAL: No deformity, Other (2+ EDEMA) Vitals VITALS Vital Signs Date Time Temp Pulse Resp B/P (MAP) Pulse Ox O2 Delivery O2 Flow Rate FiO2 04/02/18 12:09 98.1 96 20 110/68 (82) 93 Nasal Cannula 2.0 98.1 Labs Labs Laboratory Tests Test 04/01/18 17:05 04/01/18 20:30 04/01/18 20:42 04/02/18 04:40 White Blood Count 9.2 x10^3/uL (4.0-11.0) 14.9 x10^3/uL (4.0-11.0) Red Blood Count 4.23 x10^6/uL (4.30-5.70) 4.09 x10^6/uL (4.30-5.70) Hemoglobin 12.3 g/dL (13.0-17.5) 11.8 g/dL (13.0-17.5) Hematocrit 37.3 % (39.0-53.0) 36.0 % (39.0-53.0) Mean Corpuscular Volume 88 fL (79-100) 88 fL (79-100) Mean Corpuscular Hemoglobin 29 pg (25-35) 29 pg (25-35) Mean Corpuscular Hemoglobin Concent 33 g/dL (31-37) 33 g/dL (31-37) Red Cell Distribution Width 15.1 % (11.5-14.5) 14.6 % (11.5-14.5) Platelet Count 264 x10^3/uL (140-400) 272 x10^3/uL (140-400) Neutrophils (%) (Auto) 80 % (31-73) 87 % (31-73) Lymphocytes (%) (Auto) 10 % (24-48) 4 % (24-48) Monocytes (%) (Auto) 9 % (0-9) 8 % (0-9) Eosinophils (%) (Auto) 1 % (0-3) 0 % (0-3) Basophils (%) (Auto) 1 % (0-3) 1 % (0-3) Neutrophils # (Auto) 7.3 x10^3uL (1.8-7.7) 12.9 x10^3uL (1.8-7.7) Lymphocytes # (Auto) 0.9 x10^3/uL (1.0-4.8) 0.6 x10^3/uL (1.0-4.8) Monocytes # (Auto) 0.8 x10^3/uL (0.0-1.1) 1.2 x10^3/uL (0.0-1.1) Eosinophils # (Auto) 0.1 x10^3/uL (0.0-0.7) 0.0 x10^3/uL (0.0-0.7) Basophils # (Auto) 0.1 x10^3/uL (0.0-0.2) 0.1 x10^3/uL (0.0-0.2) Sodium Level 139 mmol/L (136-145) 141 mmol/L (136-145) Potassium Level 3.2 mmol/L (3.5-5.1) 3.3 mmol/L (3.5-5.1) Chloride Level 103 mmol/L (98-107) 103 mmol/L (98-107) Carbon Dioxide Level 24 mmol/L (21-32) 25 mmol/L (21-32) Anion Gap 12 (6-14) 13 (6-14) Blood Urea Nitrogen 62 mg/dL (8-26) 62 mg/dL (8-26) Creatinine 6.5 mg/dL (0.7-1.3) 7.0 mg/dL (0.7-1.3) Estimated GFR (Cockcroft-Gault) 8.8 8.1 BUN/Creatinine Ratio 10 (6-20) Glucose Level 107 mg/dL (70-99) 99 mg/dL (70-99) Calcium Level 7.1 mg/dL (8.5-10.1) 7.1 mg/dL (8.5-10.1) Phosphorus Level 6.6 mg/dL (2.6-4.7) Magnesium Level 2.6 mg/dL (1.8-2.4) Total Bilirubin 0.4 mg/dL (0.2-1.0) Aspartate Amino Transf (AST/SGOT) 30 U/L (15-37) Alanine Aminotransferase (ALT/SGPT) 10 U/L (16-63) Alkaline Phosphatase 106 U/L (46-116) Troponin I Quantitative < 0.017 ng/mL (0.000-0.055) OR-Kqa-W-Type Natriuretic Peptide > 73642 pg/mL (0-124) Total Protein 6.9 g/dL (6.4-8.2) Albumin 2.1 g/dL (3.4-5.0) Albumin/Globulin Ratio 0.4 (1.0-1.7) Urine Collection Type Unknown Urine Color Yellow Urine Clarity Clear Urine pH 5.5 Urine Specific Chandler 1.020 Urine Protein >=300 mg/dL (NEG-TRACE) Urine Glucose (UA) 100 mg/dL (NEG) Urine Ketones (Stick) Trace mg/dL (NEG) Urine Blood Small (NEG) Urine Nitrite Negative (NEG) Urine Bilirubin Negative (NEG) Urine Urobilinogen Dipstick 0.2 mg/dL (0.2 mg/dL) Urine Leukocyte Esterase Negative (NEG) Urine RBC Occ /HPF (0-2) Urine WBC 5-10 /HPF (0-4) Urine Squamous Epithelial Cells Occ /LPF Urine Amorphous Sediment Present /HPF Urine Bacteria 0 /HPF (0-FEW) Urine Hyaline Casts Few /HPF Urine Granular Casts Occasional /HPF Urine Mucus Slight /LPF Glucose (Fingerstick) 152 mg/dL (70-99) Segmented Neutrophils % 81 % (35-66) Band Neutrophils % 5 % (0-9) Lymphocytes % 9 % (24-48) Monocytes % 5 % (0-10) Platelet Estimate Adequate (ADEQUATE) Laboratory Tests Test 04/01/18 17:05 04/01/18 20:30 04/01/18 20:42 04/02/18 04:40 White Blood Count 9.2 x10^3/uL (4.0-11.0) 14.9 x10^3/uL (4.0-11.0) Red Blood Count 4.23 x10^6/uL (4.30-5.70) 4.09 x10^6/uL (4.30-5.70) Hemoglobin 12.3 g/dL (13.0-17.5) 11.8 g/dL (13.0-17.5) Hematocrit 37.3 % (39.0-53.0) 36.0 % (39.0-53.0) Mean Corpuscular Volume 88 fL (79-100) 88 fL (79-100) Mean Corpuscular Hemoglobin 29 pg (25-35) 29 pg (25-35) Mean Corpuscular Hemoglobin Concent 33 g/dL (31-37) 33 g/dL (31-37) Red Cell Distribution Width 15.1 % (11.5-14.5) 14.6 % (11.5-14.5) Platelet Count 264 x10^3/uL (140-400) 272 x10^3/uL (140-400) Neutrophils (%) (Auto) 80 % (31-73) 87 % (31-73) Lymphocytes (%) (Auto) 10 % (24-48) 4 % (24-48) Monocytes (%) (Auto) 9 % (0-9) 8 % (0-9) Eosinophils (%) (Auto) 1 % (0-3) 0 % (0-3) Basophils (%) (Auto) 1 % (0-3) 1 % (0-3) Neutrophils # (Auto) 7.3 x10^3uL (1.8-7.7) 12.9 x10^3uL (1.8-7.7) Lymphocytes # (Auto) 0.9 x10^3/uL (1.0-4.8) 0.6 x10^3/uL (1.0-4.8) Monocytes # (Auto) 0.8 x10^3/uL (0.0-1.1) 1.2 x10^3/uL (0.0-1.1) Eosinophils # (Auto) 0.1 x10^3/uL (0.0-0.7) 0.0 x10^3/uL (0.0-0.7) Basophils # (Auto) 0.1 x10^3/uL (0.0-0.2) 0.1 x10^3/uL (0.0-0.2) Sodium Level 139 mmol/L (136-145) 141 mmol/L (136-145) Potassium Level 3.2 mmol/L (3.5-5.1) 3.3 mmol/L (3.5-5.1) Chloride Level 103 mmol/L (98-107) 103 mmol/L (98-107) Carbon Dioxide Level 24 mmol/L (21-32) 25 mmol/L (21-32) Anion Gap 12 (6-14) 13 (6-14) Blood Urea Nitrogen 62 mg/dL (8-26) 62 mg/dL (8-26) Creatinine 6.5 mg/dL (0.7-1.3) 7.0 mg/dL (0.7-1.3) Estimated GFR (Cockcroft-Gault) 8.8 8.1 BUN/Creatinine Ratio 10 (6-20) Glucose Level 107 mg/dL (70-99) 99 mg/dL (70-99) Calcium Level 7.1 mg/dL (8.5-10.1) 7.1 mg/dL (8.5-10.1) Phosphorus Level 6.6 mg/dL (2.6-4.7) Magnesium Level 2.6 mg/dL (1.8-2.4) Total Bilirubin 0.4 mg/dL (0.2-1.0) Aspartate Amino Transf (AST/SGOT) 30 U/L (15-37) Alanine Aminotransferase (ALT/SGPT) 10 U/L (16-63) Alkaline Phosphatase 106 U/L (46-116) Troponin I Quantitative < 0.017 ng/mL (0.000-0.055) [id number]-Type Natriuretic Peptide > 27466 pg/mL (0-124) Total Protein 6.9 g/dL (6.4-8.2) Albumin 2.1 g/dL (3.4-5.0) Albumin/Globulin Ratio 0.4 (1.0-1.7) Urine Collection Type Unknown Urine Color Yellow Urine Clarity Clear Urine pH 5.5 Urine Specific Chandler 1.020 Urine Protein >=300 mg/dL (NEG-TRACE) Urine Glucose (UA) 100 mg/dL (NEG) Urine Ketones (Stick) Trace mg/dL (NEG) Urine Blood Small (NEG) Urine Nitrite Negative (NEG) Urine Bilirubin Negative (NEG) Urine Urobilinogen Dipstick 0.2 mg/dL (0.2 mg/dL) Urine Leukocyte Esterase Negative (NEG) Urine RBC Occ /HPF (0-2) Urine WBC 5-10 /HPF (0-4) Urine Squamous Epithelial Cells Occ /LPF Urine Amorphous Sediment Present /HPF Urine Bacteria 0 /HPF (0-FEW) Urine Hyaline Casts Few /HPF Urine Granular Casts Occasional /HPF Urine Mucus Slight /LPF Glucose (Fingerstick) 152 mg/dL (70-99) Segmented Neutrophils % 81 % (35-66) Band Neutrophils % 5 % (0-9) Lymphocytes % 9 % (24-48) Monocytes % 5 % (0-10) Platelet Estimate Adequate (ADEQUATE) Assessment/Plan Assessment/Plan IMP NEW ESRD ANEMIA DM II HTN S/P LEFT ARM AVF ACUTE ON CHRONIC DIASTOLIC CHF LE EDEMA AFIB RVR HYPOKALEMIA PLAN REPLACE K HAS TEMP HD CATHETER IN PLACE WILL HAVE TEMP TO TUNNELED HD CATHETER DONE ONCE AFIB CONTROLLED CONTROL HR START ARANESP WILL ASK SW TO SET UP OP HD AT [facility] HD TODAY UF ABOUT 2.0 LITERS TOLERATED JESUS POWELL MD Apr 02, 2018 12:33
[2018-04-02] MEDS ORDERED: MORPHINE SULFATE 4 MG/ML VIAL. IV PRN (20:30)
[2018-04-02] MEDS: INSULIN GLARGINE 300 UNITS/3 ML INSULN.PEN. SQ SCH (20:57)
[2018-04-03 03:33] VITALS: BP 128/72
[2018-04-03 06:07] LABS: HEMATOCRIT 34.9 % (39.0-53.0); HEMOGLOBIN 11.5 g/dL (13.0-17.5); RED BLOOD COUNT 3.96 x10^6/uL (4.30-5.70); RED CELL DISTRIBUTION WIDTH 14.6 % (11.5-14.5); WHITE BLOOD COUNT 9.7 x10^3/uL (4.0-11.0)
[2018-04-03 06:10] LABS: CALCIUM 7.6 mg/dL (8.5-10.1); CREATININE 6.3 mg/dL (0.7-1.3); DIRECT BILIRUBIN 0.2 mg/dL (0.0-0.2); GFR 9.1; POTASSIUM 3.3 mmol/L (3.5-5.1); TOTAL BILIRUBIN 0.5 mg/dL (0.2-1.0); TOTAL PROTEIN 7.2 g/dL (6.4-8.2)
[2018-04-03] MEDS: dilTIAZem INJ 125 MG in IV DEXTROSE 5% 100ML 100 ML IV PRN (06:34)
[2018-04-03 07:00] VITALS: BP 110/68
[2018-04-03] MEDS: ATORVASTATIN CALCIUM 40 MG TABLET. PO SCH (08:00)
[2018-04-03 08:16] VITALS: BP 110/63
--- NOTE | 2018-04-03 12:10 | PDOC ---
Renal-Progress Notes Subjective Notes Notes NO NEW COMPLAINTS History of Present Illness Hx of present illness STABLE Vitals Vitals Vital Signs Date Time Temp Pulse Resp B/P (MAP) Pulse Ox O2 Delivery O2 Flow Rate FiO2 04/03/18 08:16 99 16 110/63 (79) 94 Nasal Cannula 2.0 04/03/18 03:33 98.8 98.8 Weight Weight [ ] I.O. Intake and Output Intake and Output 04/03/18 07:00 Intake Total 320 ml Output Total 100 ml Balance 220 ml Intake Oral 320 ml Output Urine Total 100 ml Labs Labs Laboratory Tests Test 04/02/18 20:53 04/03/18 05:25 04/03/18 11:58 Glucose (Fingerstick) 105 mg/dL (70-99) 49 mg/dL (70-99) White Blood Count 9.7 x10^3/uL (4.0-11.0) Red Blood Count 3.96 x10^6/uL (4.30-5.70) Hemoglobin 11.5 g/dL (13.0-17.5) Hematocrit 34.9 % (39.0-53.0) Mean Corpuscular Volume 88 fL (79-100) Mean Corpuscular Hemoglobin 29 pg (25-35) Mean Corpuscular Hemoglobin Concent 33 g/dL (31-37) Red Cell Distribution Width 14.6 % (11.5-14.5) Platelet Count 258 x10^3/uL (140-400) Sodium Level 136 mmol/L (136-145) Potassium Level 3.3 mmol/L (3.5-5.1) Chloride Level 97 mmol/L (98-107) Carbon Dioxide Level 28 mmol/L (21-32) Anion Gap 11 (6-14) Blood Urea Nitrogen 49 mg/dL (8-26) Creatinine 6.3 mg/dL (0.7-1.3) Estimated GFR (Cockcroft-Gault) 9.1 Glucose Level 58 mg/dL (70-99) Calcium Level 7.6 mg/dL (8.5-10.1) Total Bilirubin 0.5 mg/dL (0.2-1.0) Direct Bilirubin 0.2 mg/dL (0.0-0.2) Aspartate Amino Transf (AST/SGOT) 14 U/L (15-37) Alanine Aminotransferase (ALT/SGPT) 11 U/L (16-63) Alkaline Phosphatase 97 U/L (46-116) Total Protein 7.2 g/dL (6.4-8.2) Albumin 2.0 g/dL (3.4-5.0) Review of Systems Constitutional: yes: weakness, alert, oriented Ears/Nose/Throat: Yes: no symptom reported Eyes: Yes: no symptom reported Pulmonary: Yes dyspnea Cardiovascular: Yes no symptom reported, Yes edema Gastrointestional: Yes: no symptom reported Genitourinary: Yes: no symptom reported Musculoskeletal: Yes: no symptom reported Skin: Yes no symptom reported Psychiatric/Neurological: Yes: no symptom reported Endocrine: Yes: no symptom reported Physical Exam General Appearance: no apparent distress Skin: warm Respiratory: decreased breath sounds Heart: S1S2 Abdomen: soft Extremities: pulses present, edema Neurology: alert, oriented Assessment Assessment IMP NEW ESRD ANEMIA DM II HTN ACUTE ON CHRONIC D CHF LE EDEMA PLAN HD TODAY UF TOWARDS DW WILL HD AGAIN TOMORROW WILL ASK IR TO CHANGE TEMP TO TUNNELED HD CATHETER SW SETTING UP OP HD JESUS POWELL MD Apr 03, 2018 12:10
--- NOTE | 2018-04-03 12:46 | PDOC ---
PROGRESS NOTES Subjective Subjective pt feels well this morning, he said he has had increased fatigue after dialysis , but understands that this is to be expected in beginning of treatment his HR has been consistently in low 100s his shortness of breath has resolved since admission he has a temporary dialysis catheter placed, and has received treatment x2 Objective Objective Vital Signs Date Time Temp Pulse Resp B/P (MAP) Pulse Ox O2 Delivery O2 Flow Rate FiO2 04/03/18 08:16 99 16 110/63 (79) 94 Nasal Cannula 2.0 04/03/18 03:33 98.8 98.8 Intake and Output 04/03/18 07:00 Intake Total 320 ml Output Total 100 ml Balance 220 ml Intake Oral 320 ml Output Urine Total 100 ml Physical Exam Heart: Other (irreguarly irregural, S1, S2, no murmur rubs or gallops) General: Alert, Oriented X3, Cooperative, No acute distress Lungs: Clear to auscultation, Other (decreased air movement at bases) Assessment Assessment Problems Medical Problems: (1) Acute renal failure Status: Acute (2) Atrial fibrillation Status: Acute Plan Plan of Care switch to po Diltazem 300mg qAM continue recommended dialysis by nephrology Comment Review of Relevant I have reviewed the following items rekha (where applicable) has been applied. Labs Laboratory Tests Test 04/01/18 17:05 04/01/18 20:30 04/01/18 20:42 04/02/18 04:40 White Blood Count 9.2 x10^3/uL (4.0-11.0) 14.9 x10^3/uL (4.0-11.0) Red Blood Count 4.23 x10^6/uL (4.30-5.70) 4.09 x10^6/uL (4.30-5.70) Hemoglobin 12.3 g/dL (13.0-17.5) 11.8 g/dL (13.0-17.5) Hematocrit 37.3 % (39.0-53.0) 36.0 % (39.0-53.0) Mean Corpuscular Volume 88 fL (79-100) 88 fL (79-100) Mean Corpuscular Hemoglobin 29 pg (25-35) 29 pg (25-35) Mean Corpuscular Hemoglobin Concent 33 g/dL (31-37) 33 g/dL (31-37) Red Cell Distribution Width 15.1 % (11.5-14.5) 14.6 % (11.5-14.5) Platelet Count 264 x10^3/uL (140-400) 272 x10^3/uL (140-400) Neutrophils (%) (Auto) 80 % (31-73) 87 % (31-73) Lymphocytes (%) (Auto) 10 % (24-48) 4 % (24-48) Monocytes (%) (Auto) 9 % (0-9) 8 % (0-9) Eosinophils (%) (Auto) 1 % (0-3) 0 % (0-3) Basophils (%) (Auto) 1 % (0-3) 1 % (0-3) Neutrophils # (Auto) 7.3 x10^3uL (1.8-7.7) 12.9 x10^3uL (1.8-7.7) Lymphocytes # (Auto) 0.9 x10^3/uL (1.0-4.8) 0.6 x10^3/uL (1.0-4.8) Monocytes # (Auto) 0.8 x10^3/uL (0.0-1.1) 1.2 x10^3/uL (0.0-1.1) Eosinophils # (Auto) 0.1 x10^3/uL (0.0-0.7) 0.0 x10^3/uL (0.0-0.7) Basophils # (Auto) 0.1 x10^3/uL (0.0-0.2) 0.1 x10^3/uL (0.0-0.2) Sodium Level 139 mmol/L (136-145) 141 mmol/L (136-145) Potassium Level 3.2 mmol/L (3.5-5.1) 3.3 mmol/L (3.5-5.1) Chloride Level 103 mmol/L (98-107) 103 mmol/L (98-107) Carbon Dioxide Level 24 mmol/L (21-32) 25 mmol/L (21-32) Anion Gap 12 (6-14) 13 (6-14) Blood Urea Nitrogen 62 mg/dL (8-26) 62 mg/dL (8-26) Creatinine 6.5 mg/dL (0.7-1.3) 7.0 mg/dL (0.7-1.3) Estimated GFR (Cockcroft-Gault) 8.8 8.1 BUN/Creatinine Ratio 10 (6-20) Glucose Level 107 mg/dL (70-99) 99 mg/dL (70-99) Calcium Level 7.1 mg/dL (8.5-10.1) 7.1 mg/dL (8.5-10.1) Phosphorus Level 6.6 mg/dL (2.6-4.7) Magnesium Level 2.6 mg/dL (1.8-2.4) Total Bilirubin 0.4 mg/dL (0.2-1.0) Aspartate Amino Transf (AST/SGOT) 30 U/L (15-37) Alanine Aminotransferase (ALT/SGPT) 10 U/L (16-63) Alkaline Phosphatase 106 U/L (46-116) Troponin I Quantitative < 0.017 ng/mL (0.000-0.055) DC-Slt-E-Type Natriuretic Peptide > 32624 pg/mL (0-124) Total Protein 6.9 g/dL (6.4-8.2) Albumin 2.1 g/dL (3.4-5.0) Albumin/Globulin Ratio 0.4 (1.0-1.7) Urine Collection Type Unknown Urine Color Yellow Urine Clarity Clear Urine pH 5.5 Urine Specific [place] 1.020 Urine Protein >=300 mg/dL (NEG-TRACE) Urine Glucose (UA) 100 mg/dL (NEG) Urine Ketones (Stick) Trace mg/dL (NEG) Urine Blood Small (NEG) Urine Nitrite Negative (NEG) Urine Bilirubin Negative (NEG) Urine Urobilinogen Dipstick 0.2 mg/dL (0.2 mg/dL) Urine Leukocyte Esterase Negative (NEG) Urine RBC Occ /HPF (0-2) Urine WBC 5-10 /HPF (0-4) Urine Squamous Epithelial Cells Occ /LPF Urine Amorphous Sediment Present /HPF Urine Bacteria 0 /HPF (0-FEW) Urine Hyaline Casts Few /HPF Urine Granular Casts Occasional /HPF Urine Mucus Slight /LPF Glucose (Fingerstick) 152 mg/dL (70-99) Segmented Neutrophils % 81 % (35-66) Band Neutrophils % 5 % (0-9) Lymphocytes % 9 % (24-48) Monocytes % 5 % (0-10) Platelet Estimate Adequate (ADEQUATE) Hepatitis B Surface Antigen Nonreactive (Nonreactive) Hepatitis B Surface Antibody Nonreactive Test 04/02/18 20:53 04/03/18 05:25 04/03/18 11:58 Glucose (Fingerstick) 105 mg/dL (70-99) 49 mg/dL (70-99) White Blood Count 9.7 x10^3/uL (4.0-11.0) Red Blood Count 3.96 x10^6/uL (4.30-5.70) Hemoglobin 11.5 g/dL (13.0-17.5) Hematocrit 34.9 % (39.0-53.0) Mean Corpuscular Volume 88 fL (79-100) Mean Corpuscular Hemoglobin 29 pg (25-35) Mean Corpuscular Hemoglobin Concent 33 g/dL (31-37) Red Cell Distribution Width 14.6 % (11.5-14.5) Platelet Count 258 x10^3/uL (140-400) Sodium Level 136 mmol/L (136-145) Potassium Level 3.3 mmol/L (3.5-5.1) Chloride Level 97 mmol/L (98-107) Carbon Dioxide Level 28 mmol/L (21-32) Anion Gap 11 (6-14) Blood Urea Nitrogen 49 mg/dL (8-26) Creatinine 6.3 mg/dL (0.7-1.3) Estimated GFR (Cockcroft-Gault) 9.1 Glucose Level 58 mg/dL (70-99) Calcium Level 7.6 mg/dL (8.5-10.1) Total Bilirubin 0.5 mg/dL (0.2-1.0) Direct Bilirubin 0.2 mg/dL (0.0-0.2) Aspartate Amino Transf (AST/SGOT) 14 U/L (15-37) Alanine Aminotransferase (ALT/SGPT) 11 U/L (16-63) Alkaline Phosphatase 97 U/L (46-116) Total Protein 7.2 g/dL (6.4-8.2) Albumin 2.0 g/dL (3.4-5.0) Laboratory Tests Test 04/02/18 20:53 04/03/18 05:25 04/03/18 11:58 Glucose (Fingerstick) 105 mg/dL (70-99) 49 mg/dL (70-99) White Blood Count 9.7 x10^3/uL (4.0-11.0) Red Blood Count 3.96 x10^6/uL (4.30-5.70) Hemoglobin 11.5 g/dL (13.0-17.5) Hematocrit 34.9 % (39.0-53.0) Mean Corpuscular Volume 88 fL (79-100) Mean Corpuscular Hemoglobin 29 pg (25-35) Mean Corpuscular Hemoglobin Concent 33 g/dL (31-37) Red Cell Distribution Width 14.6 % (11.5-14.5) Platelet Count 258 x10^3/uL (140-400) Sodium Level 136 mmol/L (136-145) Potassium Level 3.3 mmol/L (3.5-5.1) Chloride Level 97 mmol/L (98-107) Carbon Dioxide Level 28 mmol/L (21-32) Anion Gap 11 (6-14) Blood Urea Nitrogen 49 mg/dL (8-26) Creatinine 6.3 mg/dL (0.7-1.3) Estimated GFR (Cockcroft-Gault) 9.1 Glucose Level 58 mg/dL (70-99) Calcium Level 7.6 mg/dL (8.5-10.1) Total Bilirubin 0.5 mg/dL (0.2-1.0) Direct Bilirubin 0.2 mg/dL (0.0-0.2) Aspartate Amino Transf (AST/SGOT) 14 U/L (15-37) Alanine Aminotransferase (ALT/SGPT) 11 U/L (16-63) Alkaline Phosphatase 97 U/L (46-116) Total Protein 7.2 g/dL (6.4-8.2) Albumin 2.0 g/dL (3.4-5.0) Medications Current Medications Diltiazem HCl (Cardizem) 10 mg 1X ONCE IVP Last administered on 04/01/18at 18: 30; Start 04/01/18 at 18:45; Stop 04/01/18 at 18:46; Status DC Diltiazem HCl 125 mg/Dextrose 125 ml @ 10 mls/hr 1X ONCE IV Last administered on 04/01/18at 20:34; Start 04/01/18 at 18:45; Stop 04/02/18 at 07 :14; Status DC Ondansetron HCl (Zofran) 4 mg PRN Q8HRS PRN IV NAUSEA/VOMITING; Start at 18:30; Stop 04/02/18 at 18:29; Status DC Morphine Sulfate (Morphine Sulfate) 4 mg PRN Q2HR PRN IV PAIN Last administered on 04/01/18at 21:39; Start 04/01/18 at 18:30; Stop 04/02/18 at 18 :29; Status DC Acetaminophen (Tylenol) 650 mg PRN Q4HRS PRN PO FEVER; Start 04/01/18 at 18:30 ; Stop 04/02/18 at 18:29; Status DC Albuterol Sulfate (Ventolin Neb Soln) 2.5 mg 1X ONCE NEB Last administered on 04/01/18at 20:53; Start 04/01/18 at 19:15; Stop 04/01/18 at 19:16; Status DC Acetaminophen/ Hydrocodone Bitart (Lortab 5/325) 1 tab PRN Q4HRS PRN PO PAIN Last administered on 04/01/18at 20:33; Start 04/01/18 at 20:15 Atorvastatin Calcium (Lipitor) 40 mg DAILY08 PO Last administered on at 11:17; Start 04/02/18 at 08:00 Insulin Glargine (Lantus) 14 units QHS SQ Last administered on 04/02/18at 20:57 ; Start 04/01/18 at 21:00 Diltiazem HCl 125 mg/Dextrose 125 ml @ 5 mls/hr CONT PRN IV SEE I/O RECORD Last administered on 04/03/18at 06:34; Start 04/02/18 at 01:45 Lidocaine/Sodium Bicarbonate (Buffered Lidocaine 1%) 3 ml STK-MED ONCE .ROUTE ; Start 04/02/18 at 08:14; Stop 04/02/18 at 08:15; Status DC Heparin Sodium (Porcine) (Heparin Sodium) 10,000 unit STK-MED ONCE .ROUTE ; Start 04/02/18 at 08:16; Stop 04/02/18 at 08:17; Status DC Lidocaine/Sodium Bicarbonate (Buffered Lidocaine 1%) 6 ml 1X ONCE INJ Last administered on 04/02/18at 09:36; Start 04/02/18 at 09:30; Stop 04/02/18 at 09 :31; Status DC Heparin Sodium (Porcine) (Heparin Sodium) 2,500 unit 1X ONCE INT CAT Last administered on 04/02/18at 09:36; Start 04/02/18 at 09:45; Stop 04/02/18 at 09 :46; Status DC Sodium Chloride 1,000 ml @ 1,000 mls/hr Q1H PRN IV hypotension; Start at 11:28; Stop 04/02/18 at 17:27; Status DC Sodium Chloride 1,000 ml @ 400 mls/hr Q2H30M PRN IV PATENCY; Start 04/02/18 at 11:28; Stop 04/02/18 at 23:27; Status DC Info (PHARMACY MONITORING -- do not chart) 1 each PRN DAILY PRN MC SEE COMMENTS ; Start 04/02/18 at 11:30; Status UNV Info (PHARMACY MONITORING -- do not chart) 1 each PRN DAILY PRN MC SEE COMMENTS ; Start 04/02/18 at 11:30 Darbepoetin Selvin (Aranesp) 60 mcg WEEKLYHS SQ ; Start 04/09/18 at 21:00 Throat Lozenges (Cepacol Sore Throat Lozenge) 1 satya PRN Q2HRS PRN PO SORE THROAT; Start 04/02/18 at 19:00 Morphine Sulfate (Morphine Sulfate) 4 mg PRN Q2HR PRN IV PAIN Last administered on 04/02/18at 20:56; Start 04/02/18 at 20:30 Albuterol/ Ipratropium (Duoneb) 3 ml RTQID NEB ; Start 04/03/18 at 16:00; Status UNV Active Scripts Active Reported Lantus Solostar (Insulin Glargine,Hum.rec.anlog) 100 Unit/1 Ml Insuln.pen 14 Unit SQ QHS Lasix (Furosemide) 80 Mg Tablet 1 Tab PO DAILY Lipitor (Atorvastatin Calcium) 40 Mg Tablet 1 Tab PO DAILY08 Actos (Pioglitazone Hcl) 30 Mg Tablet 1 Tab PO DAILY Vitals/I & O Vital Sign - Last 24 Hours 04/02/18 04/02/18 04/02/18 04/02/18 19:20 19:41 20:56 21:26 Temp 98.5 98.5 Pulse 103 Resp 18 18 18 B/P (MAP) 142/78 (99) Pulse Ox 98 96 96 O2 Delivery Nasal Cannula Nasal Cannula Nasal Cannula Nasal Cannula O2 Flow Rate 2.0 2.0 2.0 2.0 04/02/18 04/03/18 04/03/18 04/03/18 23:00 03:33 07:00 08:15 Temp 98.4 98.8 98.4 98.8 Pulse 92 97 104 Resp 18 16 B/P (MAP) 108/71 (83) 128/72 (90) 110/68 (82) Pulse Ox 96 94 O2 Delivery Nasal Cannula Nasal Cannula Nasal Cannula O2 Flow Rate 2.0 2.0 2.0 04/03/18 08:16 Pulse 99 Resp 16 B/P (MAP) 110/63 (79) Pulse Ox 94 O2 Delivery Nasal Cannula O2 Flow Rate 2.0 Intake and Output 04/02/18 04/02/18 04/03/18 15:00 23:00 07:00 Intake Total 320 ml Output Total 100 ml Balance 220 ml DANTE FERNÁNDEZ MD Apr 03, 2018 12:46
[2018-04-03] MEDS: IPRATRPIUM/ALBUTEROL 0.5/2.5MG 3 ML NEBU. NEB SCH ×3 (13:00→20:05)
[2018-04-03 15:05] VITALS: BP 134/68
[2018-04-03 19:00] VITALS: BP 137/72
[2018-04-03] MEDS: INSULIN GLARGINE 300 UNITS/3 ML INSULN.PEN. SQ SCH (21:04)
[2018-04-03] MEDS: HYDROcodone/APAP 5/325MG 1 TAB TABLET PO PRN (21:10)
[2018-04-03] MEDS: BENZOCAINE/MENTHOL LOZENGE. PO PRN (21:10)
--- NOTE | 2018-04-03 21:56 | PN ---
DATE: 04/03/2018 LOCATION: He is in room 268. SUBJECTIVE: The patient is awake, alert, seen on dialysis. He feels considerably better. Still is somewhat short of breath and wheezing, but improved. OBJECTIVE: VITAL SIGNS: Stable. He is afebrile. GENERAL: He is awake and alert. He has a temporary dialysis catheter in his right upper chest. He has had some pain related to that and the hydrocodone, which he took for the pain he felt like made him somewhat goofy. CHEST: Reveals still some mild bilateral wheezes. HEART: Regular in 90s. ABDOMEN: Benign. EXTREMITIES: Still reveal significant edema. Weight is decreased 5 pounds on bed scales from yesterday. LABORATORY DATA: White count is 9700, hemoglobin 11.5, BUN is decreased to 49, creatinine down to 6.3. Hepatitis B surface antigen and antibodies are negative. ASSESSMENT: 1. End-stage renal disease with fluid overload and congestive heart failure due to the same. 2. Atrial fibrillation. 3. Diabetes. PLAN: Continue dialysis as long as renal feels that he is stabilized for discharge. He mentioned to me that a tunneled catheter may be placed prior to discharge. He remains on a Cardizem drip for rate control with his atrial fibrillation. RERE MCGARRY MD DR: LOIS/aureliano JOB#: [id number] / [id number]
[2018-04-03 23:14] VITALS: BP 119/69
[2018-04-04] VITALS (11 sets, daily range): BP systolic 113–158; BP diastolic 55–78
[2018-04-04] MEDS: IPRATRPIUM/ALBUTEROL 0.5/2.5MG 3 ML NEBU. NEB SCH ×4 (08:22→20:20)
[2018-04-04] MEDS ORDERED: IV NORMAL SALINE 1000ML BAG 1,000 ML IV PRN ×2 (08:51)
[2018-04-04] MEDS ORDERED: DIALYSIS PATIENT. MC PRN ×2 (09:00)
[2018-04-04 09:57] LABS: HEMATOCRIT 35.1 % (39.0-53.0); HEMOGLOBIN 11.5 g/dL (13.0-17.5); RED BLOOD COUNT 3.97 x10^6/uL (4.30-5.70); RED CELL DISTRIBUTION WIDTH 14.7 % (11.5-14.5); WHITE BLOOD COUNT 10.9 x10^3/uL (4.0-11.0)
[2018-04-04 10:16] LABS: PROTHROMBIN TIME PATIENT 15.3 SEC (11.7-14.0)
[2018-04-04 10:18] LABS: CALCIUM 7.7 mg/dL (8.5-10.1); CREATININE 6.3 mg/dL (0.7-1.3); GFR 9.1; POTASSIUM 3.7 mmol/L (3.5-5.1)
--- NOTE | 2018-04-04 11:27 | PDOC ---
Renal-Progress Notes Subjective Notes Notes NO NEW COMPLAINTS History of Present Illness Hx of present illness STABLE Vitals Vitals Vital Signs Date Time Temp Pulse Resp B/P (MAP) Pulse Ox O2 Delivery O2 Flow Rate FiO2 04/04/18 09:33 106 136/74 04/04/18 08:24 96 Nasal Cannula 2.0 04/04/18 07:00 98.2 18 98.2 Weight Weight [ ] I.O. Intake and Output Intake and Output 04/04/18 07:00 Intake Total 200 ml Balance 200 ml Intake Oral 200 ml # Voids 3 # Bowel Movements 2 Labs Labs Laboratory Tests Test 04/03/18 11:58 04/03/18 20:34 04/04/18 08:11 04/04/18 08:30 Glucose (Fingerstick) 49 mg/dL (70-99) 122 mg/dL (70-99) 65 mg/dL (70-99) White Blood Count 10.9 x10^3/uL (4.0-11.0) Red Blood Count 3.97 x10^6/uL (4.30-5.70) Hemoglobin 11.5 g/dL (13.0-17.5) Hematocrit 35.1 % (39.0-53.0) Mean Corpuscular Volume 88 fL (79-100) Mean Corpuscular Hemoglobin 29 pg (25-35) Mean Corpuscular Hemoglobin Concent 33 g/dL (31-37) Red Cell Distribution Width 14.7 % (11.5-14.5) Platelet Count 278 x10^3/uL (140-400) Prothrombin Time 15.3 SEC (11.7-14.0) Prothromb Time International Ratio 1.3 (0.8-1.1) Sodium Level 136 mmol/L (136-145) Potassium Level 3.7 mmol/L (3.5-5.1) Chloride Level 96 mmol/L (98-107) Carbon Dioxide Level 28 mmol/L (21-32) Anion Gap 12 (6-14) Blood Urea Nitrogen 41 mg/dL (8-26) Creatinine 6.3 mg/dL (0.7-1.3) Estimated GFR (Cockcroft-Gault) 9.1 Glucose Level 63 mg/dL (70-99) Calcium Level 7.7 mg/dL (8.5-10.1) Review of Systems Constitutional: yes: weakness, alert, oriented Ears/Nose/Throat: Yes: no symptom reported Eyes: Yes: no symptom reported Pulmonary: Yes dyspnea Cardiovascular: Yes no symptom reported, Yes edema Gastrointestional: Yes: no symptom reported Genitourinary: Yes: no symptom reported Musculoskeletal: Yes: no symptom reported Skin: Yes no symptom reported Psychiatric/Neurological: Yes: no symptom reported Endocrine: Yes: no symptom reported Physical Exam General Appearance: no apparent distress Skin: warm Respiratory: decreased breath sounds Heart: S1S2 Abdomen: soft Extremities: pulses present, edema Neurology: alert, oriented Assessment Assessment IMP NEW ESRD ANEMIA DM II HTN ACUTE ON CHRONIC D CHF LE EDEMA PLAN HD TODAY UF TOWARDS DW WILL HD AGAIN TOMORROW WILL ASK IR TO CHANGE TEMP TO TUNNELED HD CATHETER SW SETTING UP OP HD JESUS POWELL MD Apr 04, 2018 11:27
[2018-04-04] MEDS ORDERED: LIDOCAINE 1%/EPI 1:100,000 20 ML VIAL. ONE (12:45)
[2018-04-04] MEDS ORDERED: HEPARIN for IV BOLUS 10,000 UNIT/10 ML VIAL. ONE (12:45)
[2018-04-04] MEDS ORDERED: LIDOCAINE 1%/EPI 1:100,000 20 ML VIAL. IJ ONE (13:00)
[2018-04-04] MEDS ORDERED: MIDAZOLAM HCL/PF 2 MG/2 ML VIAL. IV ONE (13:00)
[2018-04-04] MEDS ORDERED: fentaNYL PF VIAL 100 MCG/2 ML VIAL IV ONE (13:00)
--- NOTE | 2018-04-04 13:33 | PDOC ---
BRIEF OPERATIVE NOTE Pre-Op Diagnosis CRF Post-Op Diagnosis same Procedure Performed Temp to Tunnelled HD catheter exchange Surgeon Flor Anesthesia Type: Conscious Sedation Findings 23cm Palindrome with excellent manual flows Complications No immediate SANTANA JIMÉNEZ MD Apr 04, 2018 13:33
--- NOTE | 2018-04-04 13:33 | PDOC ---
MODERATE SEDATION ASSESSMENT RISKS/ALTERNATIVES Risks/Alternatives Risks and alternatives of this type of sedation and procedure discussed with: RISK/ALTERNATIVES: Patient H & P ON CHART H & P H & P on chart and reviewed for co-morbid conditions and appropriate labs. H&P ON CHART: Yes STATUS PREG STATUS ASSESSED: Yes MEDS/ALLERGIES REVIEWED Meds/Allergies Reviewed Medications and Allergies including time and route of recently administered narcotics and sedatives. MEDS/ALLERGIES REVIEWED: Yes ASA RATING ASA RATING: II AIRWAY ASSESSMENT Airway Assessment Airway patency, oral function limitations, presence of caps, crowns, dentures, partials, and ability to extend neck assessed. AIRWAY ASSESSMENT: Yes MALLAMPATI SCORE MALLAMPATI SCORE: II PRE-SEDATION ASSESSMENT PRE-SEDATION ASSESSMENT: Yes SANTANA JIMÉNEZ MD Apr 04, 2018 13:33
[2018-04-04] MEDS: ATORVASTATIN CALCIUM 40 MG TABLET. PO SCH (14:17)
[2018-04-04] MEDS: ACETAMINOPHEN 500 MG TABLET PO PRN ×2 (14:17→21:10)
--- NOTE | 2018-04-04 15:35 | PDOC ---
PROGRESS NOTES Subjective Subjective patient reports feeling much better today, and not as fatigued he had had no chest pain or shortness of breath in last 24 hours no new cardiac concerns at this time Objective Objective Vital Signs Date Time Temp Pulse Resp B/P (MAP) Pulse Ox O2 Delivery O2 Flow Rate FiO2 04/04/18 14:30 Nasal Cannula 2.0 04/04/18 13:28 21 94 04/04/18 13:28 83 04/04/18 09:33 136/74 04/04/18 07:00 98.2 98.2 Intake and Output 04/04/18 07:00 Intake Total 200 ml Balance 200 ml Intake Oral 200 ml # Voids 3 # Bowel Movements 2 Physical Exam Heart: Regular rate, Normal S1, Normal S2, No murmurs Extremities: No clubbing, No cyanosis, No edema, Normal pulses General: Alert, Oriented X3, Cooperative, No acute distress Lungs: Clear to auscultation, Normal air movement Assessment Assessment Problems Medical Problems: (1) Acute renal failure Status: Acute (2) Atrial fibrillation Status: Acute Plan Plan of Care continue Diltiazem 300mg po qd no new cardiac concerns will continue to monitor patient while admitted Comment Review of Relevant I have reviewed the following items rekha (where applicable) has been applied. Labs Laboratory Tests Test 04/02/18 20:53 04/03/18 05:25 04/03/18 11:58 04/03/18 20:34 Glucose (Fingerstick) 105 mg/dL (70-99) 49 mg/dL (70-99) 122 mg/dL (70-99) White Blood Count 9.7 x10^3/uL (4.0-11.0) Red Blood Count 3.96 x10^6/uL (4.30-5.70) Hemoglobin 11.5 g/dL (13.0-17.5) Hematocrit 34.9 % (39.0-53.0) Mean Corpuscular Volume 88 fL (79-100) Mean Corpuscular Hemoglobin 29 pg (25-35) Mean Corpuscular Hemoglobin Concent 33 g/dL (31-37) Red Cell Distribution Width 14.6 % (11.5-14.5) Platelet Count 258 x10^3/uL (140-400) Sodium Level 136 mmol/L (136-145) Potassium Level 3.3 mmol/L (3.5-5.1) Chloride Level 97 mmol/L (98-107) Carbon Dioxide Level 28 mmol/L (21-32) Anion Gap 11 (6-14) Blood Urea Nitrogen 49 mg/dL (8-26) Creatinine 6.3 mg/dL (0.7-1.3) Estimated GFR (Cockcroft-Gault) 9.1 Glucose Level 58 mg/dL (70-99) Calcium Level 7.6 mg/dL (8.5-10.1) Total Bilirubin 0.5 mg/dL (0.2-1.0) Direct Bilirubin 0.2 mg/dL (0.0-0.2) Aspartate Amino Transf (AST/SGOT) 14 U/L (15-37) Alanine Aminotransferase (ALT/SGPT) 11 U/L (16-63) Alkaline Phosphatase 97 U/L (46-116) Total Protein 7.2 g/dL (6.4-8.2) Albumin 2.0 g/dL (3.4-5.0) Test 04/04/18 08:11 04/04/18 08:30 Glucose (Fingerstick) 65 mg/dL (70-99) White Blood Count 10.9 x10^3/uL (4.0-11.0) Red Blood Count 3.97 x10^6/uL (4.30-5.70) Hemoglobin 11.5 g/dL (13.0-17.5) Hematocrit 35.1 % (39.0-53.0) Mean Corpuscular Volume 88 fL (79-100) Mean Corpuscular Hemoglobin 29 pg (25-35) Mean Corpuscular Hemoglobin Concent 33 g/dL (31-37) Red Cell Distribution Width 14.7 % (11.5-14.5) Platelet Count 278 x10^3/uL (140-400) Prothrombin Time 15.3 SEC (11.7-14.0) Prothromb Time International Ratio 1.3 (0.8-1.1) Sodium Level 136 mmol/L (136-145) Potassium Level 3.7 mmol/L (3.5-5.1) Chloride Level 96 mmol/L (98-107) Carbon Dioxide Level 28 mmol/L (21-32) Anion Gap 12 (6-14) Blood Urea Nitrogen 41 mg/dL (8-26) Creatinine 6.3 mg/dL (0.7-1.3) Estimated GFR (Cockcroft-Gault) 9.1 Glucose Level 63 mg/dL (70-99) Calcium Level 7.7 mg/dL (8.5-10.1) Laboratory Tests Test 04/03/18 20:34 04/04/18 08:11 04/04/18 08:30 Glucose (Fingerstick) 122 mg/dL (70-99) 65 mg/dL (70-99) White Blood Count 10.9 x10^3/uL (4.0-11.0) Red Blood Count 3.97 x10^6/uL (4.30-5.70) Hemoglobin 11.5 g/dL (13.0-17.5) Hematocrit 35.1 % (39.0-53.0) Mean Corpuscular Volume 88 fL (79-100) Mean Corpuscular Hemoglobin 29 pg (25-35) Mean Corpuscular Hemoglobin Concent 33 g/dL (31-37) Red Cell Distribution Width 14.7 % (11.5-14.5) Platelet Count 278 x10^3/uL (140-400) Prothrombin Time 15.3 SEC (11.7-14.0) Prothromb Time International Ratio 1.3 (0.8-1.1) Sodium Level 136 mmol/L (136-145) Potassium Level 3.7 mmol/L (3.5-5.1) Chloride Level 96 mmol/L (98-107) Carbon Dioxide Level 28 mmol/L (21-32) Anion Gap 12 (6-14) Blood Urea Nitrogen 41 mg/dL (8-26) Creatinine 6.3 mg/dL (0.7-1.3) Estimated GFR (Cockcroft-Gault) 9.1 Glucose Level 63 mg/dL (70-99) Calcium Level 7.7 mg/dL (8.5-10.1) Medications Current Medications Diltiazem HCl (Cardizem) 10 mg 1X ONCE IVP Last administered on 04/01/18at 18: 30; Start 04/01/18 at 18:45; Stop 04/01/18 at 18:46; Status DC Diltiazem HCl 125 mg/Dextrose 125 ml @ 10 mls/hr 1X ONCE IV Last administered on 04/01/18at 20:34; Start 04/01/18 at 18:45; Stop 04/02/18 at 07 :14; Status DC Ondansetron HCl (Zofran) 4 mg PRN Q8HRS PRN IV NAUSEA/VOMITING; Start at 18:30; Stop 04/02/18 at 18:29; Status DC Morphine Sulfate (Morphine Sulfate) 4 mg PRN Q2HR PRN IV PAIN Last administered on 04/01/18at 21:39; Start 04/01/18 at 18:30; Stop 04/02/18 at 18 :29; Status DC Acetaminophen (Tylenol) 650 mg PRN Q4HRS PRN PO FEVER; Start 04/01/18 at 18:30 ; Stop 04/02/18 at 18:29; Status DC Albuterol Sulfate (Ventolin Neb Soln) 2.5 mg 1X ONCE NEB Last administered on 04/01/18at 20:53; Start 04/01/18 at 19:15; Stop 04/01/18 at 19:16; Status DC Acetaminophen/ Hydrocodone Bitart (Lortab 5/325) 1 tab PRN Q4HRS PRN PO MODERATE-SEVERE PAIN Last administered on 04/03/18at 21:10; Start 04/01/18 at 20:15 Atorvastatin Calcium (Lipitor) 40 mg DAILY08 PO Last administered on at 14:17; Start 04/02/18 at 08:00 Insulin Glargine (Lantus) 14 units QHS SQ Last administered on 04/03/18at 21:04 ; Start 04/01/18 at 21:00 Diltiazem HCl 125 mg/Dextrose 125 ml @ 5 mls/hr CONT PRN IV SEE I/O RECORD Last administered on 04/03/18at 06:34; Start 04/02/18 at 01:45 Lidocaine/Sodium Bicarbonate (Buffered Lidocaine 1%) 3 ml STK-MED ONCE .ROUTE ; Start 04/02/18 at 08:14; Stop 04/02/18 at 08:15; Status DC Heparin Sodium (Porcine) (Heparin Sodium) 10,000 unit STK-MED ONCE .ROUTE ; Start 04/02/18 at 08:16; Stop 04/02/18 at 08:17; Status DC Lidocaine/Sodium Bicarbonate (Buffered Lidocaine 1%) 6 ml 1X ONCE INJ Last administered on 04/02/18at 09:36; Start 04/02/18 at 09:30; Stop 04/02/18 at 09 :31; Status DC Heparin Sodium (Porcine) (Heparin Sodium) 2,500 unit 1X ONCE INT CAT Last administered on 04/02/18at 09:36; Start 04/02/18 at 09:45; Stop 04/02/18 at 09 :46; Status DC Sodium Chloride 1,000 ml @ 1,000 mls/hr Q1H PRN IV hypotension; Start at 11:28; Stop 04/02/18 at 17:27; Status DC Sodium Chloride 1,000 ml @ 400 mls/hr Q2H30M PRN IV PATENCY; Start 04/02/18 at 11:28; Stop 04/02/18 at 23:27; Status DC Info (PHARMACY MONITORING -- do not chart) 1 each PRN DAILY PRN MC SEE COMMENTS ; Start 04/02/18 at 11:30; Status UNV Info (PHARMACY MONITORING -- do not chart) 1 each PRN DAILY PRN MC SEE COMMENTS ; Start 04/02/18 at 11:30 Darbepoetin Selvin (Aranesp) 60 mcg WEEKLYHS SQ ; Start 04/09/18 at 21:00 Throat Lozenges (Cepacol Sore Throat Lozenge) 1 satya PRN Q2HRS PRN PO SORE THROAT Last administered on 04/03/18at 21:10; Start 04/02/18 at 19:00 Morphine Sulfate (Morphine Sulfate) 4 mg PRN Q2HR PRN IV PAIN Last administered on 04/02/18at 20:56; Start 04/02/18 at 20:30 Albuterol/ Ipratropium (Duoneb) 3 ml RTQID NEB Last administered on 04/04/18at 14:29; Start 04/03/18 at 13:00 Diltiazem HCl (Cardizem 24hr Cd) 300 mg DAILY PO Last administered on at 09:33; Start 04/03/18 at 15:00 Sodium Chloride 1,000 ml @ 1,000 mls/hr Q1H PRN IV hypotension; Start at 08:51; Stop 04/04/18 at 14:50; Status DC Sodium Chloride 1,000 ml @ 400 mls/hr Q2H30M PRN IV PATENCY; Start 04/04/18 at 08:51; Stop 04/04/18 at 20:50 Info (PHARMACY MONITORING -- do not chart) 1 each PRN DAILY PRN MC SEE COMMENTS ; Start 04/04/18 at 09:00; Status UNV Info (PHARMACY MONITORING -- do not chart) 1 each PRN DAILY PRN MC SEE COMMENTS ; Start 04/04/18 at 09:00; Status UNV Darbepoetin Selvin (Aranesp) 60 mcg Fr SQ ; Start 04/04/18 at 21:00 Heparin Sodium (Porcine) (Heparin Sodium) 10,000 unit STK-MED ONCE .ROUTE ; Start 04/04/18 at 12:45; Stop 04/04/18 at 12:46; Status DC Lidocaine/ Epinephrine (LIDOCAINE 1%-EPI 1:100,000 Multi-Dose) 20 ml STK-MED ONCE .ROUTE ; Start 04/04/18 at 12:45; Stop 04/04/18 at 12:46; Status DC Midazolam HCl (Versed) 2 mg 1X ONCE IV Last administered on 04/04/18at 13:26; Start 04/04/18 at 13:00; Stop 04/04/18 at 13:06; Status DC Fentanyl Citrate (Fentanyl 2ml Vial) 100 mcg 1X ONCE IV Last administered on 04/04/18at 13:28; Start 04/04/18 at 13:00; Stop 04/04/18 at 13:06; Status DC Lidocaine/ Epinephrine (LIDOCAINE 1%-EPI 1:100,000 Multi-Dose) 20 ml 1X ONCE IJ Last administered on 04/04/18at 13:26; Start 04/04/18 at 13:00; Stop 04/04 at 13:06; Status DC Heparin Sodium (Porcine) (Heparin Sodium) 3,800 unit 1X ONCE INT CAT Last administered on 04/04/18at 13:00; Start 04/04/18 at 13:00; Stop 04/04/18 at 13 :06; Status DC Cefazolin Sodium/ Dextrose 50 ml @ 100 mls/hr 1X ONCE IV Last administered on 04/04/18at 13:25; Start 04/04/18 at 13:00; Stop 04/04/18 at 13:29; Status DC Acetaminophen (Tylenol) 500 mg PRN Q6HRS PRN PO MILD PAIN / TEMP Last administered on 04/04/18at 14:17; Start 04/04/18 at 14:15 Active Scripts Active Reported Lantus Solostar (Insulin Glargine,Hum.rec.anlog) 100 Unit/1 Ml Insuln.pen 14 Unit SQ QHS Lasix (Furosemide) 80 Mg Tablet 1 Tab PO DAILY Lipitor (Atorvastatin Calcium) 40 Mg Tablet 1 Tab PO DAILY08 Actos (Pioglitazone Hcl) 30 Mg Tablet 1 Tab PO DAILY Vitals/I & O Vital Sign - Last 24 Hours 04/03/18 04/03/18 04/03/18 04/03/18 15:37 19:00 19:15 20:05 Temp 99.3 99.3 Pulse 109 Resp 18 B/P (MAP) 137/72 (93) Pulse Ox 95 94 94 O2 Delivery Nasal Cannula Nasal Cannula Nasal Cannula Nasal Cannula O2 Flow Rate 2.0 2.0 2.0 2.0 04/03/18 04/03/18 04/03/18 04/04/18 21:10 22:10 23:14 03:48 Temp 98.7 98.2 98.7 98.2 Pulse 96 98 Resp 18 16 18 20 B/P (MAP) 119/69 (86) Pulse Ox 94 96 96 97 O2 Delivery Nasal Cannula Nasal Cannula Nasal Cannula Nasal Cannula O2 Flow Rate 2.0 2.0 2.0 04/04/18 04/04/18 04/04/18 04/04/18 07:00 08:00 08:24 09:33 Temp 98.2 98.2 Pulse 92 106 Resp 18 B/P (MAP) 132/72 (92) 136/74 Pulse Ox 97 96 O2 Delivery Nasal Cannula Nasal Cannula Nasal Cannula O2 Flow Rate 2.0 2.0 2.0 04/04/18 04/04/18 04/04/18 04/04/18 13:28 13:28 13:58 14:30 Pulse 83 Resp 21 21 Pulse Ox 94 94 O2 Delivery Nasal Cannula Nasal Cannula Nasal Cannula Nasal Cannula O2 Flow Rate 2.0 2.0 2.0 2.0 Intake and Output 04/03/18 04/03/18 04/04/18 15:00 23:00 07:00 Intake Total 200 ml Balance 200 ml DANTE FERNÁNDEZ MD Apr 04, 2018 15:35
--- NOTE | 2018-04-04 17:05 | RAD ---
Procedure: Postop guided exchange of a temporary for tunneled hemodialysis catheter Clinical Indication: 57-year-old requiring long-term hemodialysis Sedation: Conscious sedation was administered for 13 minutes. The patient was monitored by a qualified independent observer throughout the time of sedation. Please refer to the medical record for exact doses of medications utilized to achieve moderate sedation. Antibiotics: Antibiotic was administered intravenously within 1 hour of the procedure start time. Fluoro Time: 0.2 minutes. Images: 1 Contrast: None Sterility: All elements of maximal sterile barrier technique including the use of a cap, mask, sterile gown, sterile gloves, large sterile sheet, appropriate hand hygiene, and 2% chlorhexidine for cutaneous antisepsis (or acceptable alternative antiseptic per current guidelines) were followed for this procedure. If ultrasound guidance was utilized, sterile ultrasound techniques were followed including use of a sterile probe cover. Consent: The procedure was explained in its entirety to the patient or the patients designated traffic representative by a member of the treatment team, including a discussion of the risks, benefits and commonly accepted alternatives to the procedure, as well as the expected consequences of no therapy whatsoever. Discussion of the risks included, but was not limited to, those that are most frequent and those that are rare but possibly severe or life-threatening, as well as the possibility of unforeseen complications. Technique and Findings: Following informed consent, the patient was prepped and draped in usual sterile fashion. 1% lidocaine was used to achieve local anesthesia over the right anterior chest wall. A small dermatotomy was made. A 23 cm palindrome hemodialysis catheter was then tunneled subcutaneously towards the right neck dermatotomy. The existing temporary catheter was then removed over a wire and a large caliber peel-away sheath was placed through the venotomy and used to deploy the tunneled catheter under fluoroscopic guidance such that the distal tip resided in the proximal right atrium. Manual flow rates were assessed and found be excellent. The catheter was then flushed, packed with heparin, capped, and sutured to the skin. Complications: No immediate Impression: 1. Fluoroscopic guided exchange of a temporary for tunneled hemodialysis catheter through same venous access as described.
[2018-04-04] MEDS ORDERED: DARBEPOETIN ALFA 60 MCG/0.3 ML DISP.SYRIN. SQ SCH (21:00)
[2018-04-04] MEDS: INSULIN GLARGINE 300 UNITS/3 ML INSULN.PEN. SQ SCH (21:08)
[2018-04-04] MEDS: BENZOCAINE/MENTHOL LOZENGE. PO PRN (23:00)
[2018-04-04] MEDS: HYDROcodone/APAP 5/325MG 1 TAB TABLET PO PRN (23:00)
--- NOTE | 2018-04-05 00:49 | PN ---
DATE: 04/04/2018 LOCATION: Room 268. SUBJECTIVE: The patient is awake, alert. Family is present. Breathing is much better. He is getting an appetite back. He is pushing for discharge. OBJECTIVE: VITAL SIGNS: Stable. He is afebrile. He is awake and alert. He has a temporary dialysis catheter, right upper chest. CHEST: Reveals still an occasional wheeze, but much improved. HEART: Irregular with controlled rate in the 90s. ABDOMEN: Benign. EXTREMITIES: With decreasing edema. RENAL: Has a plan for a tunneled dialysis catheter prior to discharge as well as dialysis again today. ASSESSMENT: 1. End-stage renal disease with fluid overload and congestive heart failure, improving with dialysis. 2. Atrial fibrillation with controlled ventricular response. 3. Diabetes. PLAN: We will continue the dialysis per Renal. Once tunneled dialysis catheter is inserted and felt by Renal ready to go home, he can be discharged from my standpoint. He is doing well with p.o. Cardizem for rate control. Actos will continued to be held at this point in time due to the heart failure, although I feel this is all renal-related and can probably be restarted as an outpatient at some point once his fluid status is normal. I am going to ask Dietary to see him per 's request to go through a renal diet. RERE MCGARRY MD DR: LOIS/aureliano JOB#: [id number] / [id number]
[2018-04-05 03:00] VITALS: BP 118/68
[2018-04-05 07:02] LABS: HEMATOCRIT 32.8 % (39.0-53.0); HEMOGLOBIN 10.9 g/dL (13.0-17.5); RED BLOOD COUNT 3.72 x10^6/uL (4.30-5.70); RED CELL DISTRIBUTION WIDTH 14.2 % (11.5-14.5); WHITE BLOOD COUNT 10.5 x10^3/uL (4.0-11.0)
[2018-04-05 07:21] LABS: CALCIUM 7.7 mg/dL (8.5-10.1); CREATININE 5.7 mg/dL (0.7-1.3); GFR 10.3; POTASSIUM 3.6 mmol/L (3.5-5.1)
[2018-04-05] MEDS: IPRATRPIUM/ALBUTEROL 0.5/2.5MG 3 ML NEBU. NEB SCH ×4 (07:42→20:07)
[2018-04-05 07:44] VITALS: BP 117/62
[2018-04-05] MEDS ORDERED: IV NORMAL SALINE 1000ML BAG 1,000 ML IV PRN ×2 (07:52)
[2018-04-05] MEDS ORDERED: DIALYSIS PATIENT. MC PRN ×2 (08:00)
[2018-04-05] MEDS ORDERED: 0.9 % SODIUM CHLORIDE 10 ML DISP.SYRIN. IV PRN ×2 (08:00)
[2018-04-05] MEDS ORDERED: ALBUMIN HUMAN 25% 200 ML IV PRN (08:00)
--- NOTE | 2018-04-05 10:36 | PDOC ---
SUBJECTIVE ROS Stable OBJECTIVE Vital Signs Vital Signs Date Time Temp Pulse Resp B/P (MAP) Pulse Ox O2 Delivery O2 Flow Rate FiO2 04/05/18 07:44 98.1 104 18 117/62 (80) 95 Nasal Cannula 2.0 98.1 I & 0 Intake and Output 04/05/18 07:00 Intake Total 2360 ml Output Total 1100 ml Balance 1260 ml Intake Oral 2360 ml Output Urine Total 1100 ml PHYSICAL EXAM Physical Exam General: Alert, Cooperative, No acute distress HEENT: Atraumatic, PERRLA, Mucous membr. moist/pink Lungs: Clear to auscultation, Normal air movement Heart: Regular rate Abdomen: Normal bowel sounds , Obese Extremities: edema 1+ Skin: No breakdown Neuro: Normal speech, Cranial nerves 3-12 NL No aguilar DIAGNOSIS/ASSESSMENT Assessment & Plan NEW ESRD- Initiated on HD on 04/02 Has TDC - placed on 04/04 Dialysis Today as Ordered ANEMIA- On Aranesp as per protocol DM II HTN ACUTE ON CHRONIC D CHF SW SETTING UP OP HD COMMENT/RELEVANT DATA Meds Current Medications Medications (Trade) Dose Ordered Sig/Ayo Start Time Stop Time Status Last Admin Dose Admin Acetaminophen (Tylenol) 500 mg PRN Q6HRS PRN 04/04/18 14:15 04/04/18 21:10 500 MG Acetaminophen/ Hydrocodone Bitart (Lortab 5/325) 1 tab PRN Q4HRS PRN 04/01/18 20:15 04/04/18 23:00 1 TAB Albumin Human 200 ml @ 200 mls/hr 1X PRN PRN 04/05/18 08:00 04/05/18 13:59 Albuterol Sulfate (Ventolin Neb Soln) 2.5 mg 1X ONCE 04/01/18 19:15 04/01/18 19:16 DC 04/01/18 20:53 2.5 MG Albuterol/ Ipratropium (Duoneb) 3 ml RTQID 04/03/18 13:00 04/05/18 07:42 3 ML Atorvastatin Calcium (Lipitor) 40 mg DAILY08 04/02/18 08:00 04/04/18 14:17 40 MG Cefazolin Sodium/ Dextrose 50 ml @ 100 mls/hr 1X ONCE 04/04/18 13:00 04/04/18 13:29 DC 10/26/18 13:25 100 MLS/HR Darbepoetin Selvin (Aranesp) 60 mcg Fr 04/04/18 21:00 04/04/18 21:06 60 MCG Diltiazem HCl (Cardizem 24hr Cd) 300 mg DAILY 04/03/18 15:00 04/04/18 09:33 300 MG Diltiazem HCl (Cardizem) 10 mg 1X ONCE 04/01/18 18:45 04/01/18 18:46 DC 04/01/18 18:30 10 MG Diltiazem HCl 125 mg/Dextrose 125 ml @ 5 mls/hr CONT PRN 04/02/18 01:45 04/03/18 06:34 15 MLS/HR Fentanyl Citrate (Fentanyl 2ml Vial) 100 mcg 1X ONCE 04/04/18 13:00 04/04/18 13:06 DC 04/04/18 13:28 50 MCG Heparin Sodium (Porcine) (Heparin Sodium) 3,800 unit 1X ONCE 04/04/18 13:00 04/04/18 13:06 DC 04/04/18 13:00 3,800 UNIT Info (PHARMACY MONITORING -- do not chart) 1 each PRN DAILY PRN 04/05/18 08:00 UNV Insulin Glargine (Lantus) 14 units QHS 04/01/18 21:00 04/04/18 21:08 14 UNITS Lidocaine/ Epinephrine (LIDOCAINE 1%-EPI 1:100,000 Multi-Dose) 20 ml 1X ONCE 04/04/18 13:00 04/04/18 13:06 DC 04/04/18 13:26 6 ML Lidocaine/Sodium Bicarbonate (Buffered Lidocaine 1%) 6 ml 1X ONCE 04/02/18 09:30 04/02/18 09:31 DC 04/02/18 09:36 4 ML Midazolam HCl (Versed) 2 mg 1X ONCE 04/04/18 13:00 04/04/18 13:06 DC 04/04/18 13:26 1.5 MG Morphine Sulfate (Morphine Sulfate) 4 mg PRN Q2HR PRN 04/02/18 20:30 04/02/18 20:56 4 MG Ondansetron HCl (Zofran) 4 mg PRN Q8HRS PRN 04/01/18 18:30 04/02/18 18:29 DC Sodium Chloride 1,000 ml @ 400 mls/hr Q2H30M PRN 04/05/18 07:52 04/05/18 19:51 Sodium Chloride (Normal Saline Flush) 10 ml 1X PRN PRN 04/05/18 08:00 04/06/18 07:59 Throat Lozenges (Cepacol Sore Throat Lozenge) 1 samir PRN Q2HRS PRN 04/02/18 19:00 04/04/18 23:00 1 SAMIR Lab Laboratory Tests Test 04/04/18 16:46 04/04/18 21:05 04/05/18 06:10 04/05/18 07:28 Glucose (Fingerstick) 181 mg/dL (70-99) 177 mg/dL (70-99) 120 mg/dL (70-99) White Blood Count 10.5 x10^3/uL (4.0-11.0) Red Blood Count 3.72 x10^6/uL (4.30-5.70) Hemoglobin 10.9 g/dL (13.0-17.5) Hematocrit 32.8 % (39.0-53.0) Mean Corpuscular Volume 88 fL (79-100) Mean Corpuscular Hemoglobin 29 pg (25-35) Mean Corpuscular Hemoglobin Concent 33 g/dL (31-37) Red Cell Distribution Width 14.2 % (11.5-14.5) Platelet Count 260 x10^3/uL (140-400) Sodium Level 134 mmol/L (136-145) Potassium Level 3.6 mmol/L (3.5-5.1) Chloride Level 95 mmol/L (98-107) Carbon Dioxide Level 29 mmol/L (21-32) Anion Gap 10 (6-14) Blood Urea Nitrogen 31 mg/dL (8-26) Creatinine 5.7 mg/dL (0.7-1.3) Estimated GFR (Cockcroft-Gault) 10.3 Glucose Level 128 mg/dL (70-99) Calcium Level 7.7 mg/dL (8.5-10.1) Results All relevant outside records, renal labs, imaging studies, telemetry/EKG's were reviewed. JH MARK MD Apr 05, 2018 10:36
--- NOTE | 2018-04-05 10:54 | PDOC ---
Provider Note Provider Note [id number] ALICIA MALHOTRA MD Apr 05, 2018 10:54
[2018-04-05 11:04] VITALS: BP 121/58
--- NOTE | 2018-04-05 14:10 | PDOC ---
PROGRESS NOTES Subjective Subjective Patient undergoing dialysis Objective Objective Vital Signs Date Time Temp Pulse Resp B/P (MAP) Pulse Ox O2 Delivery O2 Flow Rate FiO2 04/05/18 11:04 97.9 77 18 121/58 (79) 95 Nasal Cannula 2.0 97.9 Intake and Output 04/05/18 07:00 Intake Total 2360 ml Output Total 1100 ml Balance 1260 ml Intake Oral 2360 ml Output Urine Total 1100 ml Assessment Assessment Patient stable cardiac-benson. I agree with present plan. Discharge when okay with the other services Comment Review of Relevant I have reviewed the following items rekha (where applicable) has been applied. Labs Laboratory Tests Test 04/03/18 20:34 04/04/18 08:11 04/04/18 08:30 04/04/18 16:46 Glucose (Fingerstick) 122 mg/dL (70-99) 65 mg/dL (70-99) 181 mg/dL (70-99) White Blood Count 10.9 x10^3/uL (4.0-11.0) Red Blood Count 3.97 x10^6/uL (4.30-5.70) Hemoglobin 11.5 g/dL (13.0-17.5) Hematocrit 35.1 % (39.0-53.0) Mean Corpuscular Volume 88 fL (79-100) Mean Corpuscular Hemoglobin 29 pg (25-35) Mean Corpuscular Hemoglobin Concent 33 g/dL (31-37) Red Cell Distribution Width 14.7 % (11.5-14.5) Platelet Count 278 x10^3/uL (140-400) Prothrombin Time 15.3 SEC (11.7-14.0) Prothromb Time International Ratio 1.3 (0.8-1.1) Sodium Level 136 mmol/L (136-145) Potassium Level 3.7 mmol/L (3.5-5.1) Chloride Level 96 mmol/L (98-107) Carbon Dioxide Level 28 mmol/L (21-32) Anion Gap 12 (6-14) Blood Urea Nitrogen 41 mg/dL (8-26) Creatinine 6.3 mg/dL (0.7-1.3) Estimated GFR (Cockcroft-Gault) 9.1 Glucose Level 63 mg/dL (70-99) Calcium Level 7.7 mg/dL (8.5-10.1) Test 04/04/18 21:05 04/05/18 06:10 04/05/18 07:28 Glucose (Fingerstick) 177 mg/dL (70-99) 120 mg/dL (70-99) White Blood Count 10.5 x10^3/uL (4.0-11.0) Red Blood Count 3.72 x10^6/uL (4.30-5.70) Hemoglobin 10.9 g/dL (13.0-17.5) Hematocrit 32.8 % (39.0-53.0) Mean Corpuscular Volume 88 fL (79-100) Mean Corpuscular Hemoglobin 29 pg (25-35) Mean Corpuscular Hemoglobin Concent 33 g/dL (31-37) Red Cell Distribution Width 14.2 % (11.5-14.5) Platelet Count 260 x10^3/uL (140-400) Sodium Level 134 mmol/L (136-145) Potassium Level 3.6 mmol/L (3.5-5.1) Chloride Level 95 mmol/L (98-107) Carbon Dioxide Level 29 mmol/L (21-32) Anion Gap 10 (6-14) Blood Urea Nitrogen 31 mg/dL (8-26) Creatinine 5.7 mg/dL (0.7-1.3) Estimated GFR (Cockcroft-Gault) 10.3 Glucose Level 128 mg/dL (70-99) Calcium Level 7.7 mg/dL (8.5-10.1) Laboratory Tests Test 04/04/18 16:46 04/04/18 21:05 04/05/18 06:10 04/05/18 07:28 Glucose (Fingerstick) 181 mg/dL (70-99) 177 mg/dL (70-99) 120 mg/dL (70-99) White Blood Count 10.5 x10^3/uL (4.0-11.0) Red Blood Count 3.72 x10^6/uL (4.30-5.70) Hemoglobin 10.9 g/dL (13.0-17.5) Hematocrit 32.8 % (39.0-53.0) Mean Corpuscular Volume 88 fL (79-100) Mean Corpuscular Hemoglobin 29 pg (25-35) Mean Corpuscular Hemoglobin Concent 33 g/dL (31-37) Red Cell Distribution Width 14.2 % (11.5-14.5) Platelet Count 260 x10^3/uL (140-400) Sodium Level 134 mmol/L (136-145) Potassium Level 3.6 mmol/L (3.5-5.1) Chloride Level 95 mmol/L (98-107) Carbon Dioxide Level 29 mmol/L (21-32) Anion Gap 10 (6-14) Blood Urea Nitrogen 31 mg/dL (8-26) Creatinine 5.7 mg/dL (0.7-1.3) Estimated GFR (Cockcroft-Gault) 10.3 Glucose Level 128 mg/dL (70-99) Calcium Level 7.7 mg/dL (8.5-10.1) Medications Current Medications Diltiazem HCl (Cardizem) 10 mg 1X ONCE IVP Last administered on 04/01/18at 18: 30; Start 04/01/18 at 18:45; Stop 04/01/18 at 18:46; Status DC Diltiazem HCl 125 mg/Dextrose 125 ml @ 10 mls/hr 1X ONCE IV Last administered on 04/01/18at 20:34; Start 04/01/18 at 18:45; Stop 04/02/18 at 07 :14; Status DC Ondansetron HCl (Zofran) 4 mg PRN Q8HRS PRN IV NAUSEA/VOMITING; Start at 18:30; Stop 04/02/18 at 18:29; Status DC Morphine Sulfate (Morphine Sulfate) 4 mg PRN Q2HR PRN IV PAIN Last administered on 04/01/18at 21:39; Start 04/01/18 at 18:30; Stop 04/02/18 at 18 :29; Status DC Acetaminophen (Tylenol) 650 mg PRN Q4HRS PRN PO FEVER; Start 04/01/18 at 18:30 ; Stop 04/02/18 at 18:29; Status DC Albuterol Sulfate (Ventolin Neb Soln) 2.5 mg 1X ONCE NEB Last administered on 04/01/18at 20:53; Start 04/01/18 at 19:15; Stop 04/01/18 at 19:16; Status DC Acetaminophen/ Hydrocodone Bitart (Lortab 5/325) 1 tab PRN Q4HRS PRN PO MODERATE-SEVERE PAIN Last administered on 04/04/18at 23:00; Start 04/01/18 at 20:15 Atorvastatin Calcium (Lipitor) 40 mg DAILY08 PO Last administered on at 14:17; Start 04/02/18 at 08:00 Insulin Glargine (Lantus) 14 units QHS SQ Last administered on 04/04/18at 21:08 ; Start 04/01/18 at 21:00 Diltiazem HCl 125 mg/Dextrose 125 ml @ 5 mls/hr CONT PRN IV SEE I/O RECORD Last administered on 04/03/18at 06:34; Start 04/02/18 at 01:45 Lidocaine/Sodium Bicarbonate (Buffered Lidocaine 1%) 3 ml STK-MED ONCE .ROUTE ; Start 04/02/18 at 08:14; Stop 04/02/18 at 08:15; Status DC Heparin Sodium (Porcine) (Heparin Sodium) 10,000 unit STK-MED ONCE .ROUTE ; Start 04/02/18 at 08:16; Stop 04/02/18 at 08:17; Status DC Lidocaine/Sodium Bicarbonate (Buffered Lidocaine 1%) 6 ml 1X ONCE INJ Last administered on 04/02/18at 09:36; Start 04/02/18 at 09:30; Stop 04/02/18 at 09 :31; Status DC Heparin Sodium (Porcine) (Heparin Sodium) 2,500 unit 1X ONCE INT CAT Last administered on 04/02/18at 09:36; Start 04/02/18 at 09:45; Stop 04/02/18 at 09 :46; Status DC Sodium Chloride 1,000 ml @ 1,000 mls/hr Q1H PRN IV hypotension; Start at 11:28; Stop 04/02/18 at 17:27; Status DC Sodium Chloride 1,000 ml @ 400 mls/hr Q2H30M PRN IV PATENCY; Start 04/02/18 at 11:28; Stop 04/02/18 at 23:27; Status DC Info (PHARMACY MONITORING -- do not chart) 1 each PRN DAILY PRN MC SEE COMMENTS ; Start 04/02/18 at 11:30; Status UNV Info (PHARMACY MONITORING -- do not chart) 1 each PRN DAILY PRN MC SEE COMMENTS ; Start 04/02/18 at 11:30; Stop 04/05/18 at 08:00; Status DC Darbepoetin Selvin (Aranesp) 60 mcg WEEKLYHS SQ ; Start 04/09/18 at 21:00 Throat Lozenges (Cepacol Sore Throat Lozenge) 1 satya PRN Q2HRS PRN PO SORE THROAT Last administered on 04/04/18at 23:00; Start 04/02/18 at 19:00 Morphine Sulfate (Morphine Sulfate) 4 mg PRN Q2HR PRN IV PAIN Last administered on 04/02/18at 20:56; Start 04/02/18 at 20:30 Albuterol/ Ipratropium (Duoneb) 3 ml RTQID NEB Last administered on 04/05/18at 07:42; Start 04/03/18 at 13:00 Diltiazem HCl (Cardizem 24hr Cd) 300 mg DAILY PO Last administered on at 09:33; Start 04/03/18 at 15:00 Sodium Chloride 1,000 ml @ 1,000 mls/hr Q1H PRN IV hypotension; Start at 08:51; Stop 04/04/18 at 14:50; Status DC Sodium Chloride 1,000 ml @ 400 mls/hr Q2H30M PRN IV PATENCY; Start 04/04/18 at 08:51; Stop 04/04/18 at 20:50; Status DC Info (PHARMACY MONITORING -- do not chart) 1 each PRN DAILY PRN MC SEE COMMENTS ; Start 04/04/18 at 09:00; Status UNV Info (PHARMACY MONITORING -- do not chart) 1 each PRN DAILY PRN MC SEE COMMENTS ; Start 04/04/18 at 09:00; Status UNV Darbepoetin Selvin (Aranesp) 60 mcg Fr SQ Last administered on 04/04/18at 21:06; Start 04/04/18 at 21:00 Heparin Sodium (Porcine) (Heparin Sodium) 10,000 unit STK-MED ONCE .ROUTE ; Start 04/04/18 at 12:45; Stop 04/04/18 at 12:46; Status DC Lidocaine/ Epinephrine (LIDOCAINE 1%-EPI 1:100,000 Multi-Dose) 20 ml STK-MED ONCE .ROUTE ; Start 04/04/18 at 12:45; Stop 04/04/18 at 12:46; Status DC Midazolam HCl (Versed) 2 mg 1X ONCE IV Last administered on 04/04/18at 13:26; Start 04/04/18 at 13:00; Stop 04/04/18 at 13:06; Status DC Fentanyl Citrate (Fentanyl 2ml Vial) 100 mcg 1X ONCE IV Last administered on 04/04/18at 13:28; Start 04/04/18 at 13:00; Stop 04/04/18 at 13:06; Status DC Lidocaine/ Epinephrine (LIDOCAINE 1%-EPI 1:100,000 Multi-Dose) 20 ml 1X ONCE IJ Last administered on 04/04/18at 13:26; Start 04/04/18 at 13:00; Stop 04/04 at 13:06; Status DC Heparin Sodium (Porcine) (Heparin Sodium) 3,800 unit 1X ONCE INT CAT Last administered on 04/04/18at 13:00; Start 04/04/18 at 13:00; Stop 04/04/18 at 13 :06; Status DC Cefazolin Sodium/ Dextrose 50 ml @ 100 mls/hr 1X ONCE IV Last administered on 04/04/18at 13:25; Start 04/04/18 at 13:00; Stop 04/04/18 at 13:29; Status DC Acetaminophen (Tylenol) 500 mg PRN Q6HRS PRN PO MILD PAIN / TEMP Last administered on 04/04/18at 21:10; Start 04/04/18 at 14:15 Sodium Chloride 1,000 ml @ 1,000 mls/hr Q1H PRN IV hypotension; Start at 07:52; Stop 04/05/18 at 13:51; Status DC Albumin Human 200 ml @ 200 mls/hr 1X PRN PRN IV Hypotension; Start 04/05/18 at 08:00; Stop 04/05/18 at 13:59; Status DC Sodium Chloride (Normal Saline Flush) 10 ml 1X PRN PRN IV AP catheter pack; Start 04/05/18 at 08:00; Stop 04/06/18 at 07:59 Sodium Chloride (Normal Saline Flush) 10 ml 1X PRN PRN IV 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; Start 04/05/18 at 08:00; Stop 04/06/18 at 07:59 Sodium Chloride 1,000 ml @ 400 mls/hr Q2H30M PRN IV PATENCY; Start 04/05/18 at 07:52; Stop 04/05/18 at 19:51 Info (PHARMACY MONITORING -- do not chart) 1 each PRN DAILY PRN MC SEE COMMENTS ; Start 04/05/18 at 08:00 Info (PHARMACY MONITORING -- do not chart) 1 each PRN DAILY PRN MC SEE COMMENTS ; Start 04/05/18 at 08:00; Status UNV Active Scripts Active Reported Lantus Solostar (Insulin Glargine,Hum.rec.anlog) 100 Unit/1 Ml Insuln.pen 14 Unit SQ QHS Lasix (Furosemide) 80 Mg Tablet 1 Tab PO DAILY Lipitor (Atorvastatin Calcium) 40 Mg Tablet 1 Tab PO DAILY08 Actos (Pioglitazone Hcl) 30 Mg Tablet 1 Tab PO DAILY Vitals/I & O Vital Sign - Last 24 Hours 04/04/18 04/04/18 04/04/18 04/04/18 14:15 14:30 14:30 15:00 Temp 98.2 98.2 Pulse 106 93 Resp 18 16 B/P (MAP) 128/57 (80) 138/76 (96) 127/57 (80) Pulse Ox 94 O2 Delivery Room Air Room Air Nasal Cannula O2 Flow Rate 2.0 04/04/18 04/04/18 04/04/18 04/04/18 15:00 15:30 16:00 19:00 Temp 98.6 98.6 Pulse 96 97 96 96 B/P (MAP) 122/55 (77) 121/75 (90) 117/69 (85) 128/78 (95) Pulse Ox 97 O2 Delivery Room Air 04/04/18 04/04/18 04/04/18 04/04/18 19:55 20:20 23:00 23:00 Temp 98.8 98.8 Pulse 96 Resp 20 20 B/P (MAP) 158/76 (103) Pulse Ox 97 O2 Delivery Nasal Cannula Nasal Cannula Room Air Nasal Cannula O2 Flow Rate 2.0 2.0 2.0 04/05/18 04/05/18 04/05/18 04/05/18 00:00 03:00 07:43 07:44 Temp 97.6 98.1 97.6 98.1 Pulse 20 104 Resp 20 18 18 B/P (MAP) 118/68 (85) 117/62 (80) Pulse Ox 97 95 97 95 O2 Delivery Nasal Cannula Nasal Cannula Nasal Cannula Nasal Cannula O2 Flow Rate 2.0 2.0 2.0 2.0 04/05/18 04/05/18 08:10 11:04 Temp 97.9 97.9 Pulse 77 Resp 18 B/P (MAP) 121/58 (79) Pulse Ox 95 O2 Delivery Nasal Cannula Nasal Cannula O2 Flow Rate 2.0 2.0 Intake and Output 04/04/18 04/04/18 04/05/18 15:00 23:00 07:00 Intake Total 420 ml 1250 ml 690 ml Output Total 1100 ml Balance 420 ml 150 ml 690 ml DANTE FERNÁNDEZ MD Apr 05, 2018 14:10
[2018-04-05 14:45] VITALS: BP 119/65
[2018-04-05] MEDS: ATORVASTATIN CALCIUM 40 MG TABLET. PO SCH (14:54)
[2018-04-05 19:00] VITALS: BP 125/60
[2018-04-05] MEDS: INSULIN GLARGINE 300 UNITS/3 ML INSULN.PEN. SQ SCH (21:00)
[2018-04-05 23:00] VITALS: BP 121/55
[2018-04-05] MEDS: HYDROcodone/APAP 5/325MG 1 TAB TABLET PO PRN (23:38)
--- NOTE | 2018-04-06 02:04 | PN ---
DATE: 04/05/2018 The patient continues on hemodialysis and is waiting outpatient dialysis plans before discharge. Nothing appears to be acute medically, so we will continue all medications and is stable and follow currently until he is able to be discharged with proper outpatient arrangements. ALICIA MALHOTRA MD DR: VALERIA/nts JOB#: [id number] / [id number]
[2018-04-06 03:00] VITALS: BP 127/67
[2018-04-06 07:43] VITALS: BP 140/69
[2018-04-06] MEDS: IPRATRPIUM/ALBUTEROL 0.5/2.5MG 3 ML NEBU. NEB SCH ×4 (07:48→20:07)
[2018-04-06] MEDS: ATORVASTATIN CALCIUM 40 MG TABLET. PO SCH (08:14)
[2018-04-06 10:42] VITALS: BP 109/66
--- NOTE | 2018-04-06 12:22 | PDOC ---
PROGRESS NOTES Subjective Subjective Patient has no new complaints. Objective Objective Vital Signs Date Time Temp Pulse Resp B/P (MAP) Pulse Ox O2 Delivery O2 Flow Rate FiO2 04/06/18 10:42 98.2 108 22 109/66 (80) 93 Nasal Cannula 3.0 98.2 Intake and Output 04/06/18 07:00 Intake Total 500 ml Output Total 0 ml Balance 500 ml Intake Oral 500 ml Output Urine Total 0 ml Physical Exam Physical Exam No significant changes in cardiac exam Assessment Assessment is hemodynamically stable. I agree with present plan. Home soon after dialysis is arranged for the patient as an outpatient Comment Review of Relevant I have reviewed the following items rekha (where applicable) has been applied. Labs Laboratory Tests Test 04/04/18 16:46 04/04/18 21:05 04/05/18 06:10 04/05/18 07:28 Glucose (Fingerstick) 181 mg/dL (70-99) 177 mg/dL (70-99) 120 mg/dL (70-99) White Blood Count 10.5 x10^3/uL (4.0-11.0) Red Blood Count 3.72 x10^6/uL (4.30-5.70) Hemoglobin 10.9 g/dL (13.0-17.5) Hematocrit 32.8 % (39.0-53.0) Mean Corpuscular Volume 88 fL (79-100) Mean Corpuscular Hemoglobin 29 pg (25-35) Mean Corpuscular Hemoglobin Concent 33 g/dL (31-37) Red Cell Distribution Width 14.2 % (11.5-14.5) Platelet Count 260 x10^3/uL (140-400) Sodium Level 134 mmol/L (136-145) Potassium Level 3.6 mmol/L (3.5-5.1) Chloride Level 95 mmol/L (98-107) Carbon Dioxide Level 29 mmol/L (21-32) Anion Gap 10 (6-14) Blood Urea Nitrogen 31 mg/dL (8-26) Creatinine 5.7 mg/dL (0.7-1.3) Estimated GFR (Cockcroft-Gault) 10.3 Glucose Level 128 mg/dL (70-99) Calcium Level 7.7 mg/dL (8.5-10.1) Test 04/05/18 16:36 04/05/18 21:22 10/28/18 08:11 04/06/18 10:51 Glucose (Fingerstick) 129 mg/dL (70-99) 150 mg/dL (70-99) 112 mg/dL (70-99) 174 mg/dL (70-99) Laboratory Tests Test 04/05/18 16:36 04/05/18 21:22 04/06/18 08:11 04/06/18 10:51 Glucose (Fingerstick) 129 mg/dL (70-99) 150 mg/dL (70-99) 112 mg/dL (70-99) 174 mg/dL (70-99) Medications Current Medications Diltiazem HCl (Cardizem) 10 mg 1X ONCE IVP Last administered on 04/01/18at 18: 30; Start 04/01/18 at 18:45; Stop 04/01/18 at 18:46; Status DC Diltiazem HCl 125 mg/Dextrose 125 ml @ 10 mls/hr 1X ONCE IV Last administered on 04/01/18at 20:34; Start 04/01/18 at 18:45; Stop 04/02/18 at 07 :14; Status DC Ondansetron HCl (Zofran) 4 mg PRN Q8HRS PRN IV NAUSEA/VOMITING; Start at 18:30; Stop 04/02/18 at 18:29; Status DC Morphine Sulfate (Morphine Sulfate) 4 mg PRN Q2HR PRN IV PAIN Last administered on 04/01/18at 21:39; Start 04/01/18 at 18:30; Stop 04/02/18 at 18 :29; Status DC Acetaminophen (Tylenol) 650 mg PRN Q4HRS PRN PO FEVER; Start 04/01/18 at 18:30 ; Stop 04/02/18 at 18:29; Status DC Albuterol Sulfate (Ventolin Neb Soln) 2.5 mg 1X ONCE NEB Last administered on 04/01/18at 20:53; Start 04/01/18 at 19:15; Stop 04/01/18 at 19:16; Status DC Acetaminophen/ Hydrocodone Bitart (Lortab 5/325) 1 tab PRN Q4HRS PRN PO MODERATE-SEVERE PAIN Last administered on 04/05/18at 23:38; Start 04/01/18 at 20:15 Atorvastatin Calcium (Lipitor) 40 mg DAILY08 PO Last administered on at 08:14; Start 04/02/18 at 08:00 Insulin Glargine (Lantus) 14 units QHS SQ Last administered on 04/04/18at 21:08 ; Start 04/01/18 at 21:00 Diltiazem HCl 125 mg/Dextrose 125 ml @ 5 mls/hr CONT PRN IV SEE I/O RECORD Last administered on 04/03/18at 06:34; Start 04/02/18 at 01:45 Lidocaine/Sodium Bicarbonate (Buffered Lidocaine 1%) 3 ml STK-MED ONCE .ROUTE ; Start 04/02/18 at 08:14; Stop 04/02/18 at 08:15; Status DC Heparin Sodium (Porcine) (Heparin Sodium) 10,000 unit STK-MED ONCE .ROUTE ; Start 04/02/18 at 08:16; Stop 04/02/18 at 08:17; Status DC Lidocaine/Sodium Bicarbonate (Buffered Lidocaine 1%) 6 ml 1X ONCE INJ Last administered on 04/02/18at 09:36; Start 04/02/18 at 09:30; Stop 04/02/18 at 09 :31; Status DC Heparin Sodium (Porcine) (Heparin Sodium) 2,500 unit 1X ONCE INT CAT Last administered on 04/02/18at 09:36; Start 04/02/18 at 09:45; Stop 04/02/18 at 09 :46; Status DC Sodium Chloride 1,000 ml @ 1,000 mls/hr Q1H PRN IV hypotension; Start at 11:28; Stop 04/02/18 at 17:27; Status DC Sodium Chloride 1,000 ml @ 400 mls/hr Q2H30M PRN IV PATENCY; Start 04/02/18 at 11:28; Stop 04/02/18 at 23:27; Status DC Info (PHARMACY MONITORING -- do not chart) 1 each PRN DAILY PRN MC SEE COMMENTS ; Start 04/02/18 at 11:30; Status UNV Info (PHARMACY MONITORING -- do not chart) 1 each PRN DAILY PRN MC SEE COMMENTS ; Start 04/02/18 at 11:30; Stop 04/05/18 at 08:00; Status DC Darbepoetin Selvin (Aranesp) 60 mcg WEEKLYHS SQ ; Start 04/09/18 at 21:00 Throat Lozenges (Cepacol Sore Throat Lozenge) 1 satya PRN Q2HRS PRN PO SORE THROAT Last administered on 04/04/18at 23:00; Start 04/02/18 at 19:00 Morphine Sulfate (Morphine Sulfate) 4 mg PRN Q2HR PRN IV PAIN Last administered on 04/02/18at 20:56; Start 04/02/18 at 20:30 Albuterol/ Ipratropium (Duoneb) 3 ml RTQID NEB Last administered on 04/06/18at 07:48; Start 04/03/18 at 13:00 Diltiazem HCl (Cardizem 24hr Cd) 300 mg DAILY PO Last administered on at 08:14; Start 04/03/18 at 15:00 Sodium Chloride 1,000 ml @ 1,000 mls/hr Q1H PRN IV hypotension; Start at 08:51; Stop 04/04/18 at 14:50; Status DC Sodium Chloride 1,000 ml @ 400 mls/hr Q2H30M PRN IV PATENCY; Start 04/04/18 at 08:51; Stop 04/04/18 at 20:50; Status DC Info (PHARMACY MONITORING -- do not chart) 1 each PRN DAILY PRN MC SEE COMMENTS ; Start 04/04/18 at 09:00; Status UNV Info (PHARMACY MONITORING -- do not chart) 1 each PRN DAILY PRN MC SEE COMMENTS ; Start 04/04/18 at 09:00; Status UNV Darbepoetin Selvin (Aranesp) 60 mcg Fr SQ Last administered on 04/04/18at 21:06; Start 04/04/18 at 21:00 Heparin Sodium (Porcine) (Heparin Sodium) 10,000 unit STK-MED ONCE .ROUTE ; Start 04/04/18 at 12:45; Stop 04/04/18 at 12:46; Status DC Lidocaine/ Epinephrine (LIDOCAINE 1%-EPI 1:100,000 Multi-Dose) 20 ml STK-MED ONCE .ROUTE ; Start 04/04/18 at 12:45; Stop 04/04/18 at 12:46; Status DC Midazolam HCl (Versed) 2 mg 1X ONCE IV Last administered on 04/04/18at 13:26; Start 04/04/18 at 13:00; Stop 04/04/18 at 13:06; Status DC Fentanyl Citrate (Fentanyl 2ml Vial) 100 mcg 1X ONCE IV Last administered on 04/04/18at 13:28; Start 04/04/18 at 13:00; Stop 04/04/18 at 13:06; Status DC Lidocaine/ Epinephrine (LIDOCAINE 1%-EPI 1:100,000 Multi-Dose) 20 ml 1X ONCE IJ Last administered on 04/04/18at 13:26; Start 04/04/18 at 13:00; Stop 04/04 at 13:06; Status DC Heparin Sodium (Porcine) (Heparin Sodium) 3,800 unit 1X ONCE INT CAT Last administered on 04/04/18at 13:00; Start 04/04/18 at 13:00; Stop 04/04/18 at 13 :06; Status DC Cefazolin Sodium/ Dextrose 50 ml @ 100 mls/hr 1X ONCE IV Last administered on 04/04/18at 13:25; Start 04/04/18 at 13:00; Stop 04/04/18 at 13:29; Status DC Acetaminophen (Tylenol) 500 mg PRN Q6HRS PRN PO MILD PAIN / TEMP Last administered on 04/04/18at 21:10; Start 04/04/18 at 14:15 Sodium Chloride 1,000 ml @ 1,000 mls/hr Q1H PRN IV hypotension; Start at 07:52; Stop 04/05/18 at 13:51; Status DC Albumin Human 200 ml @ 200 mls/hr 1X PRN PRN IV Hypotension; Start 04/05/18 at 08:00; Stop 04/05/18 at 13:59; Status DC Sodium Chloride (Normal Saline Flush) 10 ml 1X PRN PRN IV AP catheter pack; Start 04/05/18 at 08:00; Stop 04/06/18 at 07:59; Status DC Sodium Chloride (Normal Saline Flush) 10 ml 1X PRN PRN IV 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; Start 04/05/18 at 08:00; Stop 04/06/18 at 07:59; Status DC Sodium Chloride 1,000 ml @ 400 mls/hr Q2H30M PRN IV PATENCY; Start 04/05/18 at 07:52; Stop 04/05/18 at 19:51; Status DC Info (PHARMACY MONITORING -- do not chart) 1 each PRN DAILY PRN MC SEE COMMENTS ; Start 04/05/18 at 08:00 Info (PHARMACY MONITORING -- do not chart) 1 each PRN DAILY PRN MC SEE COMMENTS ; Start 04/05/18 at 08:00; Status UNV Active Scripts Active Reported Lantus Solostar (Insulin Glargine,Hum.rec.anlog) 100 Unit/1 Ml Insuln.pen 14 Unit SQ QHS Lasix (Furosemide) 80 Mg Tablet 1 Tab PO DAILY Lipitor (Atorvastatin Calcium) 40 Mg Tablet 1 Tab PO DAILY08 Actos (Pioglitazone Hcl) 30 Mg Tablet 1 Tab PO DAILY Vitals/I & O Vital Sign - Last 24 Hours 04/05/18 04/05/18 04/05/18 04/05/18 14:45 14:54 19:00 20:00 Temp 98.3 98.4 98.3 98.4 Pulse 77 77 96 Resp 18 20 B/P (MAP) 119/65 (83) 119/65 125/60 (81) Pulse Ox 95 92 O2 Delivery Nasal Cannula Room Air Nasal Cannula O2 Flow Rate 2.0 2.0 04/05/18 04/05/18 04/05/18 04/06/18 20:09 23:00 23:38 03:00 Temp 98.2 98.0 98.2 98.0 Pulse 110 102 Resp 20 20 22 B/P (MAP) 121/55 (77) 127/67 (87) Pulse Ox 98 93 91 O2 Delivery Nasal Cannula Nasal Cannula Nasal Cannula Nasal Cannula O2 Flow Rate 2.0 2.0 2.0 2.0 04/06/18 04/06/18 04/06/18 04/06/18 07:43 07:50 08:00 08:14 Temp 98.1 98.1 Pulse 108 108 Resp 22 B/P (MAP) 140/69 (92) 140/69 Pulse Ox 94 92 O2 Delivery Nasal Cannula Nasal Cannula Nasal Cannula O2 Flow Rate 3.0 2.0 2.0 04/06/18 10:42 Temp 98.2 98.2 Pulse 108 Resp 22 B/P (MAP) 109/66 (80) Pulse Ox 93 O2 Delivery Nasal Cannula O2 Flow Rate 3.0 Intake and Output 04/05/18 04/05/18 04/06/18 15:00 23:00 07:00 Intake Total 150 ml 350 ml Output Total 0 ml Balance 150 ml 350 ml DANTE FERNÁNDEZ MD Apr 06, 2018 12:21
[2018-04-06 15:23] VITALS: BP 108/64
[2018-04-06] MEDS ORDERED: POLYETHYLENE GLYCOL 3350 17 GM PACKET. PO PRN (18:15)
[2018-04-06] MEDS ORDERED: SENNOSIDES/DOCUSATE 8.6/50MG TABLET. PO PRN (18:15)
[2018-04-06 19:00] VITALS: BP 131/67
[2018-04-06] MEDS: INSULIN GLARGINE 300 UNITS/3 ML INSULN.PEN. SQ SCH (21:03)
[2018-04-06 23:00] VITALS: BP 143/80
[2018-04-07] MEDS: BENZOCAINE/MENTHOL LOZENGE. PO PRN (00:37)
[2018-04-07 03:00] VITALS: BP 147/74
--- NOTE | 2018-04-07 06:44 | PDOC ---
Provider Note Provider Note [id number] ALICIA MALHOTRA MD Apr 07, 2018 06:44
[2018-04-07 07:04] VITALS: BP 135/78
--- NOTE | 2018-04-07 07:18 | PN ---
DATE: 04/06/2018 SUBJECTIVE: The patient remains getting dialysis, waiting for definitive outpatient placement. There is no change in vitals and generally nonspecific exam at this point. Blood sugars appear to be in very good control as does his electrolytes and chest x-ray was clear. PLAN: Continue current treatment. Awaiting outpatient dialysis session. ALICIA MALHOTRA MD DR: VALERIA/aureliano JOB#: [id number] / [id number]
[2018-04-07] MEDS: IPRATRPIUM/ALBUTEROL 0.5/2.5MG 3 ML NEBU. NEB SCH ×2 (08:04→12:00)
[2018-04-07 08:07] LABS: CALCIUM 7.7 mg/dL (8.5-10.1); CREATININE 7.4 mg/dL (0.7-1.3); GFR 7.6; POTASSIUM 3.8 mmol/L (3.5-5.1)
[2018-04-07 08:12] VITALS: BP 135/78
[2018-04-07] MEDS: ATORVASTATIN CALCIUM 40 MG TABLET. PO SCH (08:12)
[2018-04-07 08:27] LABS: HEMATOCRIT 35.2 % (39.0-53.0); HEMOGLOBIN 11.8 g/dL (13.0-17.5); RED CELL DISTRIBUTION WIDTH 14.1 % (11.5-14.5); WHITE BLOOD COUNT 7.4 x10^3/uL (4.0-11.0)
[2018-04-07] MEDS ORDERED: IV NORMAL SALINE 1000ML BAG 1,000 ML IV PRN (09:12)
[2018-04-07] MEDS ORDERED: DIALYSIS PATIENT. MC PRN ×2 (09:15)
[2018-04-07] MEDS ORDERED: 0.9 % SODIUM CHLORIDE 10 ML DISP.SYRIN. IV PRN ×2 (09:15)
--- NOTE | 2018-04-07 09:29 | PDOC ---
PROGRESS NOTES Subjective Subjective Patient undergoing dialysis this am. Objective Objective Vital Signs Date Time Temp Pulse Resp B/P (MAP) Pulse Ox O2 Delivery O2 Flow Rate FiO2 04/07/18 08:12 107 135/78 04/07/18 08:04 95 Room Air 04/07/18 07:04 97.8 21 97.8 04/07/18 03:00 2.0 Intake and Output 04/07/18 07:00 Intake Total 400 ml Output Total 450 ml Balance -50 ml Intake Oral 400 ml Output Urine Total 450 ml # Voids 1 Assessment Assessment Patient continues to be hemodynamically stable. I agree with present plan. Home soon after dialysis is arranged for the patient as an outpatient Plan Plan of Care Patient no longer requires cardiology to be following. Signing off. Comment Review of Relevant I have reviewed the following items rekha (where applicable) has been applied. Labs Laboratory Tests Test 04/05/18 16:36 04/05/18 21:22 04/06/18 08:11 04/06/18 10:51 Glucose (Fingerstick) 129 mg/dL (70-99) 150 mg/dL (70-99) 112 mg/dL (70-99) 174 mg/dL (70-99) Test 04/06/18 16:57 04/06/18 19:39 04/07/18 07:40 04/07/18 07:45 Glucose (Fingerstick) 139 mg/dL (70-99) 215 mg/dL (70-99) 106 mg/dL (70-99) White Blood Count 7.4 x10^3/uL (4.0-11.0) Red Blood Count 4.00 x10^6/uL (4.30-5.70) Hemoglobin 11.8 g/dL (13.0-17.5) Hematocrit 35.2 % (39.0-53.0) Mean Corpuscular Volume 88 fL (79-100) Mean Corpuscular Hemoglobin 29 pg (25-35) Mean Corpuscular Hemoglobin Concent 33 g/dL (31-37) Red Cell Distribution Width 14.1 % (11.5-14.5) Platelet Count 298 x10^3/uL (140-400) Sodium Level 135 mmol/L (136-145) Potassium Level 3.8 mmol/L (3.5-5.1) Chloride Level 97 mmol/L (98-107) Carbon Dioxide Level 26 mmol/L (21-32) Anion Gap 12 (6-14) Blood Urea Nitrogen 39 mg/dL (8-26) Creatinine 7.4 mg/dL (0.7-1.3) Estimated GFR (Cockcroft-Gault) 7.6 Glucose Level 115 mg/dL (70-99) Calcium Level 7.7 mg/dL (8.5-10.1) Laboratory Tests Test 04/06/18 10:51 04/06/18 16:57 04/06/18 19:39 04/07/18 07:40 Glucose (Fingerstick) 174 mg/dL (70-99) 139 mg/dL (70-99) 215 mg/dL (70-99) 106 mg/dL (70-99) Test 04/07/18 07:45 White Blood Count 7.4 x10^3/uL (4.0-11.0) Red Blood Count 4.00 x10^6/uL (4.30-5.70) Hemoglobin 11.8 g/dL (13.0-17.5) Hematocrit 35.2 % (39.0-53.0) Mean Corpuscular Volume 88 fL (79-100) Mean Corpuscular Hemoglobin 29 pg (25-35) Mean Corpuscular Hemoglobin Concent 33 g/dL (31-37) Red Cell Distribution Width 14.1 % (11.5-14.5) Platelet Count 298 x10^3/uL (140-400) Sodium Level 135 mmol/L (136-145) Potassium Level 3.8 mmol/L (3.5-5.1) Chloride Level 97 mmol/L (98-107) Carbon Dioxide Level 26 mmol/L (21-32) Anion Gap 12 (6-14) Blood Urea Nitrogen 39 mg/dL (8-26) Creatinine 7.4 mg/dL (0.7-1.3) Estimated GFR (Cockcroft-Gault) 7.6 Glucose Level 115 mg/dL (70-99) Calcium Level 7.7 mg/dL (8.5-10.1) Medications Current Medications Diltiazem HCl (Cardizem) 10 mg 1X ONCE IVP Last administered on 04/01/18at 18: 30; Start 04/01/18 at 18:45; Stop 04/01/18 at 18:46; Status DC Diltiazem HCl 125 mg/Dextrose 125 ml @ 10 mls/hr 1X ONCE IV Last administered on 04/01/18at 20:34; Start 04/01/18 at 18:45; Stop 04/02/18 at 07 :14; Status DC Ondansetron HCl (Zofran) 4 mg PRN Q8HRS PRN IV NAUSEA/VOMITING; Start at 18:30; Stop 04/02/18 at 18:29; Status DC Morphine Sulfate (Morphine Sulfate) 4 mg PRN Q2HR PRN IV PAIN Last administered on 04/01/18at 21:39; Start 04/01/18 at 18:30; Stop 04/02/18 at 18 :29; Status DC Acetaminophen (Tylenol) 650 mg PRN Q4HRS PRN PO FEVER; Start 04/01/18 at 18:30 ; Stop 04/02/18 at 18:29; Status DC Albuterol Sulfate (Ventolin Neb Soln) 2.5 mg 1X ONCE NEB Last administered on 04/01/18at 20:53; Start 04/01/18 at 19:15; Stop 04/01/18 at 19:16; Status DC Acetaminophen/ Hydrocodone Bitart (Lortab 5/325) 1 tab PRN Q4HRS PRN PO MODERATE-SEVERE PAIN Last administered on 04/05/18at 23:38; Start 04/01/18 at 20:15 Atorvastatin Calcium (Lipitor) 40 mg DAILY08 PO Last administered on at 08:12; Start 04/02/18 at 08:00 Insulin Glargine (Lantus) 14 units QHS SQ Last administered on 04/06/18at 21:03 ; Start 04/01/18 at 21:00 Diltiazem HCl 125 mg/Dextrose 125 ml @ 5 mls/hr CONT PRN IV SEE I/O RECORD Last administered on 04/03/18at 06:34; Start 04/02/18 at 01:45 Lidocaine/Sodium Bicarbonate (Buffered Lidocaine 1%) 3 ml STK-MED ONCE .ROUTE ; Start 04/02/18 at 08:14; Stop 04/02/18 at 08:15; Status DC Heparin Sodium (Porcine) (Heparin Sodium) 10,000 unit STK-MED ONCE .ROUTE ; Start 04/02/18 at 08:16; Stop 04/02/18 at 08:17; Status DC Lidocaine/Sodium Bicarbonate (Buffered Lidocaine 1%) 6 ml 1X ONCE INJ Last administered on 04/02/18at 09:36; Start 04/02/18 at 09:30; Stop 04/02/18 at 09 :31; Status DC Heparin Sodium (Porcine) (Heparin Sodium) 2,500 unit 1X ONCE INT CAT Last administered on 04/02/18at 09:36; Start 04/02/18 at 09:45; Stop 04/02/18 at 09 :46; Status DC Sodium Chloride 1,000 ml @ 1,000 mls/hr Q1H PRN IV hypotension; Start at 11:28; Stop 04/02/18 at 17:27; Status DC Sodium Chloride 1,000 ml @ 400 mls/hr Q2H30M PRN IV PATENCY; Start 04/02/18 at 11:28; Stop 04/02/18 at 23:27; Status DC Info (PHARMACY MONITORING -- do not chart) 1 each PRN DAILY PRN MC SEE COMMENTS ; Start 04/02/18 at 11:30; Status UNV Info (PHARMACY MONITORING -- do not chart) 1 each PRN DAILY PRN MC SEE COMMENTS ; Start 04/02/18 at 11:30; Stop 04/05/18 at 08:00; Status DC Darbepoetin Selvin (Aranesp) 60 mcg WEEKLYHS SQ ; Start 04/09/18 at 21:00 Throat Lozenges (Cepacol Sore Throat Lozenge) 1 satya PRN Q2HRS PRN PO SORE THROAT Last administered on 04/07/18at 00:37; Start 04/02/18 at 19:00 Morphine Sulfate (Morphine Sulfate) 4 mg PRN Q2HR PRN IV PAIN Last administered on 04/02/18at 20:56; Start 04/02/18 at 20:30 Albuterol/ Ipratropium (Duoneb) 3 ml RTQID NEB Last administered on 04/07/18at 08:04; Start 04/03/18 at 13:00 Diltiazem HCl (Cardizem 24hr Cd) 300 mg DAILY PO Last administered on at 08:12; Start 04/03/18 at 15:00 Sodium Chloride 1,000 ml @ 1,000 mls/hr Q1H PRN IV hypotension; Start at 08:51; Stop 04/04/18 at 14:50; Status DC Sodium Chloride 1,000 ml @ 400 mls/hr Q2H30M PRN IV PATENCY; Start 04/04/18 at 08:51; Stop 04/04/18 at 20:50; Status DC Info (PHARMACY MONITORING -- do not chart) 1 each PRN DAILY PRN MC SEE COMMENTS ; Start 04/04/18 at 09:00; Status UNV Info (PHARMACY MONITORING -- do not chart) 1 each PRN DAILY PRN MC SEE COMMENTS ; Start 04/04/18 at 09:00; Status UNV Darbepoetin Selvin (Aranesp) 60 mcg Fr SQ Last administered on 04/04/18at 21:06; Start 04/04/18 at 21:00 Heparin Sodium (Porcine) (Heparin Sodium) 10,000 unit STK-MED ONCE .ROUTE ; Start 04/04/18 at 12:45; Stop 04/04/18 at 12:46; Status DC Lidocaine/ Epinephrine (LIDOCAINE 1%-EPI 1:100,000 Multi-Dose) 20 ml STK-MED ONCE .ROUTE ; Start 04/04/18 at 12:45; Stop 04/04/18 at 12:46; Status DC Midazolam HCl (Versed) 2 mg 1X ONCE IV Last administered on 04/04/18at 13:26; Start 04/04/18 at 13:00; Stop 04/04/18 at 13:06; Status DC Fentanyl Citrate (Fentanyl 2ml Vial) 100 mcg 1X ONCE IV Last administered on 04/04/18at 13:28; Start 04/04/18 at 13:00; Stop 04/04/18 at 13:06; Status DC Lidocaine/ Epinephrine (LIDOCAINE 1%-EPI 1:100,000 Multi-Dose) 20 ml 1X ONCE IJ Last administered on 04/04/18at 13:26; Start 04/04/18 at 13:00; Stop 04/04 at 13:06; Status DC Heparin Sodium (Porcine) (Heparin Sodium) 3,800 unit 1X ONCE INT CAT Last administered on 04/04/18at 13:00; Start 04/04/18 at 13:00; Stop 04/04/18 at 13 :06; Status DC Cefazolin Sodium/ Dextrose 50 ml @ 100 mls/hr 1X ONCE IV Last administered on 04/04/18at 13:25; Start 04/04/18 at 13:00; Stop 04/04/18 at 13:29; Status DC Acetaminophen (Tylenol) 500 mg PRN Q6HRS PRN PO MILD PAIN / TEMP Last administered on 04/04/18at 21:10; Start 04/04/18 at 14:15 Sodium Chloride 1,000 ml @ 1,000 mls/hr Q1H PRN IV hypotension; Start at 07:52; Stop 04/05/18 at 13:51; Status DC Albumin Human 200 ml @ 200 mls/hr 1X PRN PRN IV Hypotension; Start 04/05/18 at 08:00; Stop 04/05/18 at 13:59; Status DC Sodium Chloride (Normal Saline Flush) 10 ml 1X PRN PRN IV AP catheter pack; Start 04/05/18 at 08:00; Stop 04/06/18 at 07:59; Status DC Sodium Chloride (Normal Saline Flush) 10 ml 1X PRN PRN IV COMMUNITY EDUCATION COORDINATOR catheter pack; Start 04/05/18 at 08:00; Stop 04/06/18 at 07:59; Status DC Sodium Chloride 1,000 ml @ 400 mls/hr Q2H30M PRN IV PATENCY; Start 04/05/18 at 07:52; Stop 04/05/18 at 19:51; Status DC Info (PHARMACY MONITORING -- do not chart) 1 each PRN DAILY PRN MC SEE COMMENTS ; Start 04/05/18 at 08:00; Status Cancel Info (PHARMACY MONITORING -- do not chart) 1 each PRN DAILY PRN MC SEE COMMENTS ; Start 04/05/18 at 08:00; Status UNV Senna/Docusate Sodium (Senna Plus) 2 tab PRN BID PRN PO CONSTIPATION (2nd Choice) Last administered on 04/06/18at 18:21; Start 04/06/18 at 18:15 Polyethylene Glycol (miraLAX PACKET) 17 gm PRN DAILY PRN PO CONSTIPATION (2nd Choice) Last administered on 04/06/18at 20:59; Start 04/06/18 at 18:15 Sodium Chloride 1,000 ml @ 1,000 mls/hr Q1H PRN IV hypotension; Start at 09:12; Stop 04/07/18 at 15:11 Sodium Chloride (Normal Saline Flush) 10 ml 1X PRN PRN IV AP catheter pack; Start 04/07/18 at 09:15; Stop 04/08/18 at 09:14 Sodium Chloride (Normal Saline Flush) 10 ml 1X PRN PRN IV COMMUNITY EDUCATION COORDINATOR catheter pack; Start 04/07/18 at 09:15; Stop 04/08/18 at 09:14 Info (PHARMACY MONITORING -- do not chart) 1 each PRN DAILY PRN MC SEE COMMENTS ; Start 04/07/18 at 09:15; Status UNV Info (PHARMACY MONITORING -- do not chart) 1 each PRN DAILY PRN MC SEE COMMENTS ; Start 04/07/18 at 09:15 Active Scripts Active Reported Lantus Solostar (Insulin Glargine,Hum.rec.anlog) 100 Unit/1 Ml Insuln.pen 14 Unit SQ QHS Lasix (Furosemide) 80 Mg Tablet 1 Tab PO DAILY Lipitor (Atorvastatin Calcium) 40 Mg Tablet 1 Tab PO DAILY08 Actos (Pioglitazone Hcl) 30 Mg Tablet 1 Tab PO DAILY Vitals/I & O Vital Sign - Last 24 Hours 04/06/18 04/06/18 04/06/18 04/06/18 10:42 15:23 15:27 19:00 Temp 98.2 98.1 98.5 98.2 98.1 98.5 Pulse 108 107 101 Resp 22 21 21 B/P (MAP) 109/66 (80) 108/64 (79) 131/67 (88) Pulse Ox 93 92 92 O2 Delivery Nasal Cannula Room Air Nasal Cannula Room Air O2 Flow Rate 3.0 2.0 04/06/18 04/06/18 04/06/18 04/07/18 20:00 20:08 23:00 03:00 Temp 98.0 97.9 98.0 97.9 Pulse 110 110 Resp 20 22 B/P (MAP) 143/80 (101) 147/74 (98) Pulse Ox 91 90 91 O2 Delivery Nasal Cannula Room Air Nasal Cannula Nasal Cannula O2 Flow Rate 2.0 2.0 2.0 04/07/18 04/07/18 04/07/18 04/07/18 07:04 08:00 08:04 08:12 Temp 97.8 97.8 Pulse 107 107 Resp 21 B/P (MAP) 135/78 (97) 135/78 Pulse Ox 92 95 O2 Delivery Room Air Room Air Room Air Intake and Output 04/06/18 04/06/18 04/07/18 15:00 23:00 07:00 Intake Total 280 ml 120 ml Output Total 450 ml Balance 280 ml 120 ml -450 ml DANTE FERNÁNDEZ MD Apr 07, 2018 09:28
--- NOTE | 2018-04-07 12:05 | PDOC ---
SUBJECTIVE ROS Stable OBJECTIVE Vital Signs Vital Signs Date Time Temp Pulse Resp B/P (MAP) Pulse Ox O2 Delivery O2 Flow Rate FiO2 04/07/18 08:12 107 135/78 04/07/18 08:04 95 Room Air 04/07/18 07:04 97.8 21 97.8 04/07/18 03:00 2.0 I & 0 Intake and Output 04/07/18 07:00 Intake Total 400 ml Output Total 450 ml Balance -50 ml Intake Oral 400 ml Output Urine Total 450 ml # Voids 1 PHYSICAL EXAM Physical Exam General: Alert, Cooperative, No acute distress HEENT: Atraumatic, PERRLA, Mucous membr. moist/pink Lungs: Clear to auscultation, Normal air movement Heart: Regular rate Abdomen: Normal bowel sounds , Obese Extremities: edema 1+ Skin: No breakdown Neuro: Normal speech, Cranial nerves 3-12 NL No aguilar DIAGNOSIS/ASSESSMENT DIAGNOSIS/ASSESSMENT Assessment & Plan NEW ESRD- Initiated on HD on 04/02 Has TDC - placed on 04/04 , continue as Ordered Set up at [facility] TTS- Ist OP dialysis Tomorrow ANEMIA- On Aranesp as per protocol DM II HTN ACUTE ON CHRONIC D CHF Discussed with MICHELE COMMENT/RELEVANT DATA Meds Current Medications Medications (Trade) Dose Ordered Sig/Ayo Start Time Stop Time Status Last Admin Dose Admin Acetaminophen (Tylenol) 500 mg PRN Q6HRS PRN 04/04/18 14:15 04/04/18 21:10 500 MG Acetaminophen/ Hydrocodone Bitart (Lortab 5/325) 1 tab PRN Q4HRS PRN 04/01/18 20:15 04/05/18 23:38 1 TAB Albumin Human 200 ml @ 200 mls/hr 1X PRN PRN 04/05/18 08:00 04/05/18 13:59 DC Albuterol Sulfate (Ventolin Neb Soln) 2.5 mg 1X ONCE 04/01/18 19:15 04/01/18 19:16 DC 04/01/18 20:53 2.5 MG Albuterol/ Ipratropium (Duoneb) 3 ml RTQID 04/03/18 13:00 04/07/18 08:04 3 ML Atorvastatin Calcium (Lipitor) 40 mg DAILY08 04/02/18 08:00 04/07/18 08:12 40 MG Cefazolin Sodium/ Dextrose 50 ml @ 100 mls/hr 1X ONCE 04/04/18 13:00 04/04/18 13:29 DC 04/04/18 13:25 100 MLS/HR Darbepoetin Selvin (Aranesp) 60 mcg Fr 04/04/18 21:00 04/04/18 21:06 60 MCG Diltiazem HCl (Cardizem 24hr Cd) 300 mg DAILY 04/03/18 15:00 04/07/18 08:12 300 MG Diltiazem HCl (Cardizem) 10 mg 1X ONCE 04/01/18 18:45 04/01/18 18:46 DC 04/01/18 18:30 10 MG Diltiazem HCl 125 mg/Dextrose 125 ml @ 5 mls/hr CONT PRN 04/02/18 01:45 04/03/18 06:34 15 MLS/HR Fentanyl Citrate (Fentanyl 2ml Vial) 100 mcg 1X ONCE 04/04/18 13:00 04/04/18 13:06 DC 04/04/18 13:28 50 MCG Heparin Sodium (Porcine) (Heparin Sodium) 3,800 unit 1X ONCE 04/04/18 13:00 04/04/18 13:06 DC 04/04/18 13:00 3,800 UNIT Info (PHARMACY MONITORING -- do not chart) 1 each PRN DAILY PRN 04/07/18 09:15 Insulin Glargine (Lantus) 14 units QHS 04/01/18 21:00 04/06/18 21:03 14 UNITS Lidocaine/ Epinephrine (LIDOCAINE 1%-EPI 1:100,000 Multi-Dose) 20 ml 1X ONCE 04/04/18 13:00 04/04/18 13:06 DC 04/04/18 13:26 6 ML Lidocaine/Sodium Bicarbonate (Buffered Lidocaine 1%) 6 ml 1X ONCE 04/02/18 09:30 04/02/18 09:31 DC 04/02/18 09:36 4 ML Midazolam HCl (Versed) 2 mg 1X ONCE 04/04/18 13:00 04/04/18 13:06 DC 04/04/18 13:26 1.5 MG Morphine Sulfate (Morphine Sulfate) 4 mg PRN Q2HR PRN 04/02/18 20:30 04/02/18 20:56 4 MG Ondansetron HCl (Zofran) 4 mg PRN Q8HRS PRN 04/01/18 18:30 04/02/18 18:29 DC Polyethylene Glycol (miraLAX PACKET) 17 gm PRN DAILY PRN 04/06/18 18:15 04/06/18 20:59 17 GM Senna/Docusate Sodium (Senna Plus) 2 tab PRN BID PRN 04/06/18 18:15 04/06/18 18:21 2 TAB Sodium Chloride (Normal Saline Flush) 10 ml 1X PRN PRN 04/07/18 09:15 04/08/18 09:14 Throat Lozenges (Cepacol Sore Throat Lozenge) 1 samir PRN Q2HRS PRN 04/02/18 19:00 04/07/18 00:37 1 SAMIR Lab Laboratory Tests Test 04/06/18 16:57 04/06/18 19:39 04/07/18 07:40 04/07/18 07:45 Glucose (Fingerstick) 139 mg/dL (70-99) 215 mg/dL (70-99) 106 mg/dL (70-99) White Blood Count 7.4 x10^3/uL (4.0-11.0) Red Blood Count 4.00 x10^6/uL (4.30-5.70) Hemoglobin 11.8 g/dL (13.0-17.5) Hematocrit 35.2 % (39.0-53.0) Mean Corpuscular Volume 88 fL (79-100) Mean Corpuscular Hemoglobin 29 pg (25-35) Mean Corpuscular Hemoglobin Concent 33 g/dL (31-37) Red Cell Distribution Width 14.1 % (11.5-14.5) Platelet Count 298 x10^3/uL (140-400) Sodium Level 135 mmol/L (136-145) Potassium Level 3.8 mmol/L (3.5-5.1) Chloride Level 97 mmol/L (98-107) Carbon Dioxide Level 26 mmol/L (21-32) Anion Gap 12 (6-14) Blood Urea Nitrogen 39 mg/dL (8-26) Creatinine 7.4 mg/dL (0.7-1.3) Estimated GFR (Cockcroft-Gault) 7.6 Glucose Level 115 mg/dL (70-99) Calcium Level 7.7 mg/dL (8.5-10.1) Results All relevant outside records, renal labs, imaging studies, telemetry/EKG's were reviewed. JH MARK MD Apr 07, 2018 12:05
--- NOTE | 2018-04-07 19:31 | PN ---
DATE: 04/07/2018 LOCATION: Room 268. SUBJECTIVE: The patient is awake, alert, getting ready to eat breakfast, feels much better. Shortness of breath markedly improved. His energy level as well as appetite have improved. We are awaiting social services to get him set up for outpatient dialysis prior to discharge. OBJECTIVE: VITAL SIGNS: Stable. He is afebrile. He has a tunneled dialysis catheter, right upper chest. CHEST: Still reveals some bilateral mild crackles, but much improved. HEART: Irregularly irregular with rate of 100 during my stay. ABDOMEN: Benign. EXTREMITIES: Without cyanosis, clubbing or significant edema. LABORATORY DATA: Hemoglobin this morning is 11.8, white count is normal. BUN is down to 39 with creatinine of 7.4. Sugars have been in good. Actos has been on hold because of the heart failure on admission; however, this was all renally mediated so I think he can go back on that after discharge and discussed the same with him. IMPRESSION: 1. Azotemia, improving. 2. Diabetes. 3. Atrial fibrillation with controlled ventricular response. PLAN: Once he has a dialysis chair available in the community, he could be dismissed. He will get dialysis today. DISCHARGE MEDICATIONS: Will be his regular home Lipitor and Lantus and Actos. In addition, he will be on Cardizem CD 300 mg daily. RERE MCGARRY MD DR: LOIS/aureliano JOB#: [id number] / [id number]
[2018-04-09] MEDS ORDERED: DARBEPOETIN ALFA 60 MCG/0.3 ML DISP.SYRIN. SQ SCH (21:00)
== END 2018-04-07 13:55 | disposition home or self-care (01) | DRG 291 ==
LOC: ER 16:23 → CVICU 18:09
PROVIDERS: ADMIT Family Medicine; ATTEND Family Medicine
PROC: 02H633Z Insertion of Infusion Device into Right Atrium, Percutaneous Approach (ICD-10-PCS; principal; 2018-04-01)
PROC: 5A1D70Z Performance of Urinary Filtration, Intermittent, Less than 6 Hours Per Day (ICD-10-PCS; 2018-04-07)
DX: I13.2 Hypertensive heart and chronic kidney disease with heart failure and with stage 5 chronic kidney disease, or end stage renal disease (principal); I50.33 Acute on chronic diastolic (congestive) heart failure; N18.6 End stage renal disease; E87.70 Fluid overload, unspecified; Z99.2 Dependence on renal dialysis; E78.5 Hyperlipidemia, unspecified; E11.22 Type 2 diabetes mellitus with diabetic chronic kidney disease; I48.91 Unspecified atrial fibrillation; D64.9 Anemia, unspecified; E78.00 Pure hypercholesterolemia, unspecified; E87.6 Hypokalemia; Z90.49 Acquired absence of other specified parts of digestive tract
CPT/HCPCS: 36415; 36556; 36558; 71045; 76937; 77001; 80048; 80053; 80076; 81001; 82962; 83735; 83880; 84100; 84484; 85007; 85025; 85027; 85610; 86704; 86706; 87086; 87340; 93005; 94640; 94760; 96374; 99152; A4215; C1750; C1892; J0690; J0881; J1815; J2250; J2270; J3010; J3490; J7613; J7620; 99285-25

== ENCOUNTER → 2019-06-17 | Outpatient (CLI) | payer OTHER ==
[2019-04-24 11:00] VITALS: BP 104/72
[~2019-06-17] MED LIST: APIX5TAB PO; ATOR40TA PO; CETI10TA16 PO; DILT360C PO; FURO80TA72 PO; INSU100I13 SQ; PIOG30TA41 PO
--- NOTE | 2019-06-17 12:29 | RAD ---
MR#: [id number] Date of Study: 06/17/2019 Ordering Physician: NEHEMIAH MARTINEZ, Referring Physician: JUSTICE ESCUDERO Tech: BIGG Flores, ARRT (R) (N) APPROVED REPORT Test Type: Exercise Stress Nurse/Tech: Jorge Chavis RN Test Indications: atrial fibrillation Cardiac History: x-smoker, DM Medications: See Electronic Medical Record Medical History: See Electronic Medical Record Resting ECG: Atrial fibrillation Resting Heart Rate: 104 bpm Resting Blood Pressure: 121/68mmHg Pretest Chest Pain: None Nurse/Tech Notes lungs CTA Consent: The procedure was explained to the patient in lay terms. Informed consent was witnessed. Jeromy eout was entered into [employer]. History and Stress Test performed by RT Tien (R) (N) Stress Symptoms Dyspnea POST EXERCISE Reason for Termination: Reached target heart rate Max HR: 140 bpm Exercise duration: 7:56 min:sec, 2 Stage Max Blood Pressure: 135/57mmHg Blood Pressure response to exercise: Normal blood pressure response during stress. Heart Rate response to exercise: normal response Chest Pain: No. Arrhythmia: No. ST Change: No. INTERPRETATION Stress EKG Conclusion: Baseline EKG showed atrial fibrillation. No ischemic changes at peak stress. No other arrhythmias. Imaging Protocol IMAGE PROTOCOL: Rest Tc-99m/stress Tc-99m 1 day Rest: Stress: Viability: Radiopharm.Tc99m XjlqgypjqMa21k Sestamibi Rvfs41wDl 33mCi Img Date 06/17/2019 06/17/2019 Inj-Img Mipi19qlx. 45min. Rest Admin Site:IV - Right AntecubitalAdministrator: RT Masoud (R)(N) Stress Admin Site: IV - Right AntecubitalAdministrator: RT Tien (Anmol)(N) STRESS DATA End Diast. Vol.156.0mlAv. Heart Qqim502.0bpm End Syst. Vol.64.0mlCO Index BSA0.0L/min Myocardial Hfqj160.0gEject. Sppbeppx15.0% Stress Rates Pk. Fill Rate3.87EDV/secLVtime Pk. Fill 131.61msec Pk. Empty Rate3.70ESV/secLVtime Pk. Puepw336.24msec /3 Pk. Fill0.72EDV/sec Stress Scores Regional WT1.00Summed WT14.00 Regional WM0.00Summed WM11.00 Study quality was good. Left Ventricular size was Normal at Rest and Stress. Lung uptake was . Left Ventricular ejection fraction is 59%. The rest and stress images show normal perfusion, normal contraction and thickening. LV Perf. Quant 17 Seg. SSS0.00 17 Seg. SRS0.00 17 Seg. SDS0.00 Stress Defect Extent (% LAD)0.00Rest Defect Extent (% LAD)0.00Rev. Defect Extent (% LAD)0.00 Stress Defect Extent (% LCX) 10.00Rest Defect Extent (% LCX)0.00Rev. Defect Extent (% LCX)6.30 Stress Defect Extent (% RCA)0.00Rest Defect Extent (% RCA)0.00Rev. Defect Extent (% RCA)0.00 Stress Defect Extent (% KOLBY)1.70Rest Defect Extent (% KOLBY)0.00Rev. Defect Extent (% KOLBY)1.10 Conclusion 1. Treadmill exercise cardioisotope stress test did not show any evidence of ischemia or infarct. 2. Normal left ventricular systolic function with ejection fraction calculated at 59%. 3. Low risk for cardiac events. Signed by : Faraz Garcia, Electronically Approved : 06/17/2019 12:29:13
== END | disposition home or self-care (01) ==
LOC: NM 08:20
PROVIDERS: ATTEND Internal Medicine Cardiovascular Disease
DX: I48.91 Unspecified atrial fibrillation (principal); E11.9 Type 2 diabetes mellitus without complications; R06.00 Dyspnea, unspecified; Z87.891 Personal history of nicotine dependence; Z79.01 Long term (current) use of anticoagulants
CPT/HCPCS: 78452; 93017; A9500

== ENCOUNTER → 2020-06-15 | Outpatient (CLI) | payer OTHER, MEDICARE ==
[2019-04-24 11:00] VITALS: BP 104/72
--- NOTE | 2020-06-15 18:04 | CARD ---
MR#: [id number] Date of Study: 06/15/2020 Ordering Physician: NEHEMIAH MARTINEZ, Referring Physician: NEHEMIAH MARTINEZ, Tech: Fior Holder APPROVED REPORT EXAM: Two-dimensional and M-mode echocardiogram with Doppler and color Doppler. Other Information Quality : AverageHR: 99bpm INDICATION Atrial Fibrillation Congestive Heart Failure RISK FACTORS Hyperlipidemia Diabetes 2D DIMENSIONS RVDd3.4 (2.9-3.5cm)Left Atrium(2D)4.5 (1.6-4.0cm) IVSd1.3 (0.7-1.1cm)Aortic Root(2D)3.8 (2.0-3.7cm) LVDd5.1 (3.9-5.9cm)LVOT Diameter2.1 (1.8-2.4cm) PWd1.3 (0.7-1.1cm)LVDs3.1 (2.5-4.0cm) FS (%) 39.0 %SV87.3 ml Aortic Valve AoV Peak Kaushik.138.8cm/sAoV VTI27.4cm AO Peak GR.7.7mmHgLVOT Peak Kaushik.84.4cm/s LVOT VTI 15.59cmAO Mean GR.4mmHg SURENDRA (VMAX)1.97fn7QOE (VTI)2.00cm2 AI P 1/2 Dlhe630gp Mitral Valve MV E Hqhylvmy76.8cm/sMV DECEL GZMT897td MV A Ageeejar43.8cm/sMV ACU92pi E/A Ratio3.3MVA (PHT)3.36cm2 TDI E/Lateral E'7.0E/Medial E'9.0 Pulmonary Valve PV Peak Ycbnmlda84.7cm/sPV Peak Grad.3mmHg Tricuspid Valve TR P. Tfqgfdiu616me/sRAP ANLFQJBG8unYg TR Peak Gr.19vxNrZGIW26sgKb LEFT VENTRICLE The left ventricle is normal size. There is mild concentric left ventricular hypertrophy. The left ve ntricular systolic function is normal and the ejection fraction is within normal range. The Ejection Fraction is 55-60%. There is normal LV segmental wall motion. The left ventricular diastolic function and filling is normal for age. RIGHT VENTRICLE The right ventricle is normal size. There is normal right ventricular wall thickness. The right ventr icular systolic function is normal. ATRIA The left atrium is mildly dilated. The right atrium is borderline dilated. The interatrial septum is intact with no evidence for an atrial septal defect or patent foramen ovale as noted on 2-D or Dopple r imaging. AORTIC VALVE The aortic valve is thickened but opens well. Doppler and Color Flow revealed trace aortic regurgitat ion. There is no significant aortic valvular stenosis. Calculated aortic valve area is 1.90 cm2 with maximum pressure gradient of 9 mmHg and mean pressure gradient of 5 mmHg. MITRAL VALVE The mitral valve is normal in structure and function. There is no evidence of mitral valve prolapse. There is no mitral valve stenosis. Doppler and Color-flow revealed trace mitral regurgitation. TRICUSPID VALVE The tricuspid valve is normal in structure and function. Doppler and Color Flow revealed trace to mil d tricuspid regurgitation with an estimated PAP of 33 mmHg. There is no tricuspid valve stenosis. PULMONIC VALVE The pulmonic valve is not well visualized. Doppler and Color Flow revealed no pulmonic valvular regur gitation. GREAT VESSELS The aortic root is normal in size. The ascending aorta is normal in size. The IVC is normal in size a nd collapses >50% with inspiration. PERICARDIAL EFFUSION There is no evidence of significant pericardial effusion. Critical Notification Critical Value: No <Conclusion> The left ventricle is normal size. The left ventricular systolic function is normal and the ejection fraction is within normal range. The Ejection Fraction is 55-60%. There is mild concentric left ventricular hypertrophy. Doppler and Color Flow revealed trace aortic regurgitation. There is no significant aortic valvular stenosis. Doppler and Color-flow revealed trace mitral regurgitation. Doppler and Color Flow revealed trace to mild tricuspid regurgitation with an estimated PAP of 33 mmH g. Signed by : Damon Morgan MD Electronically Approved : 06/15/2020 18:04:21
== END ==
LOC: CARD 07:40
PROVIDERS: ATTEND Internal Medicine Cardiovascular Disease
DX: I07.1 Rheumatic tricuspid insufficiency (principal); I50.32 Chronic diastolic (congestive) heart failure
CPT/HCPCS: 93306

== ENCOUNTER 2021-05-05 07:49 | Inpatient (IN) | payer MEDICARE, OTHER ==
[~2021-05-05] VITALS: Ht 175.3 cm; Wt 124.0 kg
[2021-05-05] MEDS ORDERED: fentaNYL PF VIAL 100 MCG/2 ML VIAL IV ONE (08:15)
[2021-05-05 08:38] LABS: BASO # 0.1 x10^3/uL (0.0-0.2); BASO % 1 % (0-3); EOS # 0.1 x10^3/uL (0.0-0.7); EOS % 1 % (0-3); HEMATOCRIT 50.9 % (39.0-53.0); HEMOGLOBIN 16.3 g/dL (13.0-17.5); LYMPH # 1.4 x10^3/uL (1.0-4.8); LYMPH % 23 % (24-48); MEAN CORPUSCULAR HEMOGLOBIN 32 pg (25-35); MEAN CORPUSCULAR HGB CONC 32 g/dL (31-37); MEAN CORPUSCULAR VOLUME 98 fL (79-100); MONO # 0.6 x10^3/uL (0.0-1.1); MONO % 9 % (0-9); NEUT # 4.2 x10^3/uL (1.8-7.7); NEUT % 66 % (31-73); PLATELET COUNT 179 x10^3/uL (140-400); RED BLOOD COUNT 5.19 x10^6/uL (4.30-5.70); RED CELL DISTRIBUTION WIDTH 15.1 % (11.5-14.5); WHITE BLOOD COUNT 6.4 x10^3/uL (4.0-11.0)
--- NOTE | 2021-05-05 08:52 | PHYS DOC ---
Past Medical History Past Medical History: A-Fib, Diabetes-Type II, High Cholesterol, Renal Failure Past Surgical History: Appendectomy Additional Past Surgical Histo: SUGEY SHUNT PLACED JUL 2018 Smoking Status: Never Smoker Alcohol Use: None Drug Use: None General Adult EDM: Chief Complaint: BLOOD IN URINE HPI: HPI: 60 year old male presents with hematuria and low back pain. About a week ago he began having mild low back pain and noticed a small amount of blood in his urine. Over the past week the pain has progressively worsened and became severe yesterday, rated as an 8/10. He also noticed "red red" blood in his urine yesterday. He has a history of kidney failure and only urinates about twice a week. He typically receives dialysis on Tuesdays, , and Saturdays, but had dialysis on Saturday and Saturday so far this week due to the . He is scheduled to receive dialysis tomorrow. Review of Systems: Review of Systems: Constitutional: Denies fever or chills Eyes: Denies redness or eye pain HENT: Denies nasal congestion or sore throat Respiratory: Denies cough or shortness of breath Cardiovascular: Denies chest pain or palpitations GI: Denies abdominal pain, nausea, or vomiting : Reports dysuria, urinarty frequency, and hematuria Musculoskeletal: Reports back pain. Denies joint pain Integument: Denies rash or skin lesions Neurologic: Denies headache, focal weakness or sensory changes Heart Score: C/O Chest Pain: N/A Current Medications: Current Medications Medications (Trade) Dose Ordered Sig/[facility] Start Time Stop Time Status Last Admin Dose Admin Fentanyl Citrate (Fentanyl 2ml Vial) 50 mcg 1X ONCE 05/05/21 08:15 05/05/21 08:16 DC 05/05/21 08:23 50 MCG Allergies: Allergies: Allergies Coded Allergies Type Severity Reaction Last Updated Verified No Known Drug Allergies 05/05/21 No Physical Exam: PE: Constitutional: Well developed, well nourished, mild distress, non-toxic appearance HENT: Normocephalic, atraumatic Eyes: Conjunctiva normal, no discharge Neck: Normal range of motion, supple Lungs & Thorax: No respiratory distress, equal chest rise and fall, lungs clear to auscultation bilaterally Abdomen: Soft, Tenderness noted on palpation of RLQ Skin: Warm, dry, no erythema, no rash Back: No tenderness, ROM intact. Extremities: No tenderness, ROM intact, no edema Neurologic: Alert and oriented X 3, normal motor function, normal sensory function, no focal deficits noted Psychologic: Affect normal, judgment normal Current Patient Data: Vital Signs: Vital Signs Date Time Temp Pulse Resp B/P (MAP) Pulse Ox O2 Delivery O2 Flow Rate FiO2 05/05/21 08:23 18 96 Room Air 05/05/21 07:55 97.6 107 152/85 (107) 97.6 EKG: EKG: @ 8:11 am. Atrial fibrillation at 106 bpm, left axis deviation, QRS 90 ms, QT/QTc 344/459 Radiology/Procedures: Radiology/Procedures: PROCEDURE: CT ABDOMEN PELVIS WO CONTRAST EXAMINATION: CT abdomen and pelvis without IV contrast. INDICATION:60 years, Male, hematuria, flank pain. TECHNIQUE: Axial CT images of the abdomen and pelvis were obtained. Coronal and sagittal reformatted performed. COMPARISON: 04/23/2019. Exposure: One or more of the following individualized dose reduction techniques were utilized for this examination: 1. Automated exposure control 2. Adjustment of the mA and/or kV according to patient size 3. Use of iterative reconstruction technique. FINDINGS: LOWER CHEST: Dependent bibasilar subsegmental atelectasis and/or scarring. Calcified granulomas in bibasilar lungs. Calcified right hilar and paraesophageal lymph nodes. ABDOMEN/PELVIS: Within the limitation of noncontrast exam, No hydronephrosis in either kidney. There is a 2 mm nonobstructing calculus in the interpolar right kidney, new since prior exam. Nonspecific bilateral ramesh nephric fat stranding, slightly improved since prior exam. Diffuse urinary bladder wall thickening may relate to underdistention. Minimal perivesical fat stranding. Normal size and morphology of the liver with no suspicious focal hepatic lesion. Calcified granulomas in the liver and spleen. Mildly atrophic pancreas with fat infiltration. Nodular thickening of the left thyroid gland without discrete nodule. Right adrenal gland is unremarkable. Gallbladder and biliary ducts are unremarkable. No bowel obstruction or wall thickening. Appendix is not visualized. Normal caliber abdominal aorta, demonstrates mild atherosclerotic calcifications. No pneumoperitoneum or ascites. No abdominopelvic lymphadenopathy. Unremarkable prostate. No suspicious pelvic masses. MUSCULOSKELETAL STRUCTURES: Interosseous hemangioma at T9 vertebral body, unchanged. No acute osseous process. Mild degenerative changes in the spine. Small fat-containing umbilical and bilateral inguinal hernias. IMPRESSION: 1. No obstructive uropathy in either kidney. 2. Punctate nonobstructing right nephrolithiasis. 3. Diffuse urinary bladder wall thickening, may relate to underdistended lumen. Consider correlation with urinalysis to exclude cystitis. Electronically signed by: Eben Mitchell MD (05/05/2021 8:58 AM) [id number] Course & Med Decision Making: Course & Med Decision Making Pertinent Labs and Imaging studies reviewed. (See chart for details) 60 year old male with a history of renal failure presented for low back pain and gross hematuria. He received fentanyl for analgesia upon arrival to the ED. A U/A was acquired through straight catheterization to assess for infection. A noncontrast CT was acquired to assess for nephrolithiasis and showed an incidental 2mm nonobstucting stone in the right kidney that is unlikely to be causing his current symptoms. A CMP was obtained and showed a high potassium of 6.3. Due to the hyperkalemia he was given insulin and dextrose. Patient requiring admission for further evaluation and treatment. Discussed with (hospitalist) who is in agreement with admission. Discussed findings and plan with patient, who acknowledges understanding and agreement. [] Dragon Disclaimer: Maria Antonia Disclaimer: This electronic medical record was generated, in whole or in part, using a voice recognition dictation system. Departure Departure Impression: Primary Impression: Hyperkalemia Additional Impressions: ESRD (end stage renal disease) on dialysis Hematuria Qualified Codes: R31.9 - Hematuria, unspecified Disposition: 09 ADMITTED INPATIENT Condition: GUARDED Referrals: RERE MCGARRY MD (PCP) Critical Care Time Critical care time was 30 minutes which includes time at bedside, spent in discussion of patient's care with specialists and/or family members, with interpretation of laboratory and/or radiological studies and is exclusive of procedures. LAKSHMI LLOYD DO May 05, 2021 08:52
--- NOTE | 2021-05-05 09:01 | RAD ---
EXAMINATION: CT abdomen and pelvis without IV contrast. INDICATION:60 years, Male, hematuria, flank pain. TECHNIQUE: Axial CT images of the abdomen and pelvis were obtained. Coronal and sagittal reformatted performed. COMPARISON: 04/23/2019. Exposure: One or more of the following individualized dose reduction techniques were utilized for thi s examination: 1. Automated exposure control 2. Adjustment of the mA and/or kV according to patient size 3. Use of iterative reconstruction technique. FINDINGS: LOWER CHEST: Dependent bibasilar subsegmental atelectasis and/or scarring. Calcified granulomas in bibasilar lungs . Calcified right hilar and paraesophageal lymph nodes. ABDOMEN/PELVIS: Within the limitation of noncontrast exam, No hydronephrosis in either kidney. There is a 2 mm nonobstructing calculus in the interpolar right k [place], new since prior exam. Nonspecific bilateral perinephric fat stranding, slightly improved since prior exam. Diffuse urinary bladder wall thickening may relate to underdistention. Minimal perivesic al fat stranding. Normal size and morphology of the liver with no suspicious focal hepatic lesion. Calcified granulomas in the liver and spleen. Mildly atrophic pancreas with fat infiltration. Nodular thickening of the l eft thyroid gland without discrete nodule. Right adrenal gland is unremarkable. Gallbladder and bilia ry ducts are unremarkable. No bowel obstruction or wall thickening. Appendix is not visualized. Mounika l caliber abdominal aorta, demonstrates mild atherosclerotic calcifications. No pneumoperitoneum or a scites. No abdominopelvic lymphadenopathy. Unremarkable prostate. No suspicious pelvic masses. MUSCULOSKELETAL STRUCTURES: Interosseous hemangioma at T9 vertebral body, unchanged. No acute osseous process. Mild degenerative changes in the spine. Small fat-containing umbilical and bilateral inguinal hernias. IMPRESSION: 1. No obstructive uropathy in either kidney. 2. Punctate nonobstructing right nephrolithiasis. 3. Diffuse urinary bladder wall thickening, may relate to underdistended lumen. Consider correlation with urinalysis to exclude cystitis. Electronically signed by: Eben Mitchell MD (05/05/2021 8:58 AM) [id number]
[2021-05-05 09:02] LABS: ALBUMIN 3.4 g/dL (3.4-5.0); CREATININE 10.4 mg/dL (0.7-1.3); GFR 5.1; MAGNESIUM 2.9 mg/dL (1.8-2.4); TOTAL BILIRUBIN 0.3 mg/dL (0.2-1.0); TOTAL PROTEIN 6.9 g/dL (6.4-8.2)
[2021-05-05 09:12] LABS: POTASSIUM 6.3 mmol/L (3.5-5.1)
[2021-05-05 09:16] LABS: CLARITY,URINE CLOUDY; COLOR,URINE RED; PH,URINE 6.5 (<5.0-8.0)
[2021-05-05 09:26] LABS: RBC,URINE TNTC /HPF (0-2)
[2021-05-05 09:28] LABS: BACTERIA,URINE 0 /HPF (0-FEW)
[2021-05-05] MEDS ORDERED: cefTRIAXone IV Push 1 GM VIAL. IVP ONE (09:30)
[2021-05-05 10:41] LABS: PROTHROMBIN TIME PATIENT 17.1 SEC (11.7-14.0)
[2021-05-05] MEDS ORDERED: DEXTROSE 50% 25 GM / 50ML DISP.SYRIN. IV ONE (11:00)
[2021-05-05] MEDS ORDERED: SODIUM POLYSTYRENE SULFON/SORB 15 GM/60 ML ORAL.SUSP. PO ONE (11:00)
[2021-05-05] MEDS ORDERED: INSULIN REGULAR 100 UNIT/ML 3ML VIAL. IV ONE (11:00)
[2021-05-05] MEDS ORDERED: DEXTROSE 50% 25 GM / 50ML DISP.SYRIN. IV PRN ×3 (11:45→23:00)
[2021-05-05] MEDS ORDERED: ONDANSETRON PF 4 MG/2 ML VIAL. IVP PRN (11:45)
[2021-05-05] MEDS: INSULIN LISPRO 300 UNITS/3 ML VIAL. SQ SCH ×3 (12:00→23:22)
--- NOTE | 2021-05-05 13:42 | EKG ---
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
[2021-05-05] MEDS ORDERED: IV NORMAL SALINE 1000ML BAG 1,000 ML IV PRN ×2 (14:15)
[2021-05-05] MEDS ORDERED: DIALYSIS PATIENT. MC PRN (14:15)
--- NOTE | 2021-05-05 18:45 | NUR ---
Pt arrived on unit at approx 1610 by bed from dialysis. Pt admitted from ED-POC/orders reviewed, tele monitor applied. Pt has no complaints at this time. Will assume care.
[2021-05-05 19:15] VITALS: BP 117/58
[2021-05-05] MEDS ORDERED: DOCU-109 PO (22:10)
[2021-05-05] MEDS ORDERED: RIVA15TA PO (22:10)
[2021-05-05] MEDS ORDERED: SUCR500T PO (22:10)
[2021-05-05] MEDS ORDERED: CALC667T4 PO (22:10)
[2021-05-05] MEDS ORDERED: DOCUSATE SODIUM 100 MG CAPSULE. PO PRN (23:00)
[2021-05-05 23:10] VITALS: BP 137/86
[2021-05-05] MEDS: INSULIN GLARGINE SYRINGE. SQ SCH (23:23)
[2021-05-06 02:49] VITALS: BP 127/71
[2021-05-06 07:00] VITALS: BP 138/79
[2021-05-06] MEDS: INSULIN LISPRO 300 UNITS/3 ML VIAL. SQ SCH ×4 (07:30→21:00)
[2021-05-06] MEDS ORDERED: INSULIN LISPRO 300 UNITS/3 ML VIAL. SQ SCH (08:00)
[2021-05-06] MEDS: CETIRIZINE HCL 10 MG TABLET. PO SCH (08:10)
[2021-05-06] MEDS: CALCIUM ACETATE 667 MG CAPSULE PO SCH ×4 (08:10→21:13)
[2021-05-06] MEDS: ATORVASTATIN CALCIUM 40 MG TABLET. PO SCH (08:10)
[2021-05-06] MEDS: PIOGLITAZONE 15 MG TABLET. PO SCH (08:12)
[2021-05-06] MEDS: SUCROFERRIC OXYHYDROXIDE PO SCH ×2 (08:33→12:16)
[2021-05-06] MEDS ORDERED: RIVAROXABAN 15 MG TABLET. PO SCH (09:00)
[2021-05-06] MEDS ORDERED: DIALYSIS PATIENT. MC PRN ×2 (10:00)
--- NOTE | 2021-05-06 11:07 | PDOC ---
Provider Note Date of Service: DATE: 05/06/21 TIME: 11:05 Provider Note [id number] Justifications for Admission Other Justification ALICIA MALHOTRA MD May 06, 2021 11:07
--- NOTE | 2021-05-06 11:10 | PDOC ---
Provider Note Date of Service: DATE: 05/06/21 TIME: 11:08 Provider Note hold xarelto re hematuria/ esrd Justifications for Admission Other Justification ALICIA MALHOTRA MD May 06, 2021 11:10
--- NOTE | 2021-05-06 11:59 | PDOC2 ---
CONSULT Date of Consult Date of Consult DATE: 05/06/21 TIME: 11:54 Reason for Consult Reason for Consult: ESRD Referring Physician Referring Physician: ROSCOE Identification/Chief Complaint Chief Complaint LOW BACK PAIN AND URINATING BLOOD Source Source: Chart review History of Present Illness Reason for Visit: THIS IS A 60 YR OLD PT WITH ESRD. HAS ESRD DUE TO DM II AND HTN. HAS OP HD ON TTS. HAS HAD LOW BACK PAIN AND NOTED SOME BLOOD IN HIS URINE. CT ABD PELVIS NEG FOR ANY ACUTE FINDINGS. LABS C/W ESRD. HAS A LEFT ARM TRANSPOSED BB AVF FOR HIS ACCESS Past Medical History Cardiovascular: AFIB, CHF, HTN, Hyperlipidemia Pulmonary: Other CENTRAL NERVOUS SYSTEM: Periperal neuropathy GI: No pertinent hx Heme/Onc: No pertinent hx Hepatobiliary: No pertinent hx Psych: No pertinent hx Renal/: Chronic renal failure Endocrine: Diabetes, Hyperparathyroidism Past Surgical History Past Surgical History: Appendectomy, Tonsillectomy Family History Family History: Hypertension Social History ALCOHOL: none Drugs: None Lives: with Family Current Problem List Problem List Problems Medical Problems: (1) ESRD (end stage renal disease) on dialysis Status: Acute (2) Hematuria Status: Acute (3) Hyperkalemia Status: Acute Current Medications Current Medications Current Medications Fentanyl Citrate (Fentanyl 2ml Vial) 50 mcg 1X ONCE IV Last administered on at 08:23; Start 05/05/21 at 08:15; Stop 05/05/21 at 08:16; Status DC Ceftriaxone Sodium (Rocephin) 1 gm 1X ONCE IVP Last administered on 05/05/21at 09:33; Start 05/05/21 at 09:30; Stop 05/05/21 at 09:31; Status DC Sodium Polystyrene Sulfonate (Kayexalate) 15 gm 1X ONCE PO Last administered on 05/05/21at 11:15; Start 05/05/21 at 11:00; Stop 05/05/21 at 11:01; Status DC Dextrose (Dextrose 50%-Water Syringe) 25 gm 1X ONCE IV Last administered on 05/05/21at 11:09; Start 05/05/21 at 11:00; Stop 05/05/21 at 11:01; Status DC Insulin Human Regular (HumuLIN R VIAL) 10 unit 1X ONCE IV Last administered on 05/05/21at 11:14; Start 05/05/21 at 11:00; Stop 05/05/21 at 11:01; Status DC Ondansetron HCl (Zofran) 4 mg PRN Q8HRS PRN IVP NAUSEA/VOMITING; Start 05/05/21 at 11:45; Stop 05/06/21 at 11:44; Status DC Insulin Human Lispro (HumaLOG) 0-5 UNITS TIDWMEALS SQ ; Start 05/05/21 at 12:00; Stop 05/05/21 at 22:03; Status DC Dextrose (Dextrose 50%-Water Syringe) 12.5 gm PRN Q15MIN PRN IV SEE COMMENTS; Start 05/05/21 at 11:45; Stop 05/05/21 at 22:01; Status DC Sodium Chloride 1,000 ml @ 1,000 mls/hr Q1H PRN IV hypotension; Start 05/05/21 at 14:15; Stop 05/05/21 at 20:14; Status DC Sodium Chloride 1,000 ml @ 400 mls/hr Q2H30M PRN IV PATENCY; Start 05/05/21 at 14:15; Stop 05/06/21 at 02:14; Status DC Info (PHARMACY MONITORING -- do not chart) 1 each PRN DAILY PRN MC SEE COMMENTS; Start 05/05/21 at 14:15; Status Cancel Insulin Human Lispro (HumaLOG) 0-7 UNITS TIDWMEALS SQ ; Start 05/06/21 at 08:00; Status Cancel Dextrose (Dextrose 50%-Water Syringe) 12.5 gm PRN Q15MIN PRN IV SEE COMMENTS; Start 05/05/21 at 22:00; Status Cancel Insulin Human Lispro (HumaLOG) 0-5 UNITS QIDACHS SQ Last administered on 05/05/21at 23:22; Start 05/05/21 at 23:00 Dextrose (Dextrose 50%-Water Syringe) 12.5 gm PRN Q15MIN PRN IV SEE COMMENTS; Start 05/05/21 at 23:00 Atorvastatin Calcium (Lipitor) 40 mg DAILY08 PO Last administered on 05/06/21at 08:10; Start 05/06/21 at 08:00 Cetirizine HCl (ZyrTEC) 10 mg DAILY PO Last administered on 05/06/21at 08:10; Start 05/06/21 at 09:00 Docusate Sodium (Colace) 100 mg PRN DAILY PRN PO HARD STOOLS; Start 05/05/21 at 23:00 Rivaroxaban (Xarelto) 15 mg DAILY PO Last administered on 05/06/21at 08:11; Start 05/06/21 at 09:00; Stop 05/06/21 at 11:08; Status DC Calcium Acetate (Phoslo) 667 mg TIDWMEALHC PO Last administered on 05/06/21at 0 8:10; Start 05/06/21 at 08:00 Diltiazem HCl (Cardizem 24hr Cd) 300 mg DAILY PO Last administered on 05/06/21at 08:11; Start 05/06/21 at 09:00 Insulin Glargine (Lantus Syringe) 14 unit QHS SQ Last administered on 05/05/21at 23:23; Start 05/05/21 at 23:15 Pioglitazone HCl (Actos) 30 mg DAILY PO Last administered on 05/06/21at 08:12; Start 05/06/21 at 09:00 Non-Formulary Medication (Sucroferric Oxyhydroxide (Velphoro)) 1 tab TID PO ; Start 05/06/21 at 09:00; Status UNV Info (PHARMACY MONITORING -- do not chart) 1 each PRN DAILY PRN MC SEE COMMENTS; Start 05/06/21 at 10:00 Info (PHARMACY MONITORING -- do not chart) 1 each PRN DAILY PRN MC SEE COMMENTS; Start 05/06/21 at 10:00; Status UNV Active Scripts Active Reported Velphoro (Sucroferric Oxyhydroxide) 500 Mg Tab.chew 1 Tab PO TID 30 Days Xarelto (Rivaroxaban) 15 Mg Tablet 1 Tab PO DAILY 30 Days Colace (Docusate Sodium) 100 Mg Capsule 100 Mg PO PRN DAILY PRN Calcium Acetate 667 Mg Tablet 1 Tab PO QIDPMEDS 30 Days Cardizem Cd (Diltiazem Hcl) 360 Mg Cap.er.24h 300 Mg PO DAILY Cetirizine Hcl 10 Mg Tablet 1 Tab PO DAILY Lantus Solostar (Insulin Glargine,Hum.rec.anlog) 100 Unit/1 Ml Insuln.pen 14 Unit SQ QHS Lipitor (Atorvastatin Calcium) 40 Mg Tablet 1 Tab PO DAILY08 Actos (Pioglitazone Hcl) 30 Mg Tablet 1 Tab PO DAILY Allergies Allergies: Coded Allergies: No Known Drug Allergies (Unverified , 05/05/21) ROS Review of System LEFT ARM AVF WITH GOOD THRILL AND BRUIT General: YES: Fatigue, Malaise PSYCHOLOGICAL ROS: YES: Anxiety Eyes: Yes Decreased vision ALLERGY AND IMMUNOLOGY: YES: Seasonal Allergies Respiratory: YES: Cough Gastrointestinal: Yes Constipation Genitourinary: YES Hematuria Musculoskeletal: Yes Muscular Weakness, Yes Other (LOW BACK PAIN) Neurological: Yes Weakness Skin: Yes Dry Skin Physical Exam General: Alert, Cooperative, No acute distress HEENT: Atraumatic Lungs: Clear to auscultation Heart: Regular rate Abdomen: Normal bowel sounds Extremities: No clubbing, Normal pulses Skin: No rashes Neuro: Normal speech Psych/Mental Status: Mental status NL, Mood NL MUSCULOSKELETAL: No joint tenderness, No deformity, No swelling Vitals VITALS Vital Signs Date Time Temp Pulse Resp B/P (MAP) Pulse Ox O2 Delivery O2 Flow Rate FiO2 05/06/21 08:14 Room Air 05/06/21 08:11 54 127/71 05/06/21 07:00 98.5 20 93 98.5 Labs Labs Laboratory Tests Test 05/05/21 08:22 05/05/21 09:09 05/05/21 10:10 05/05/21 11:33 White Blood Count 6.4 x10^3/uL (4.0-11.0) Red Blood Count 5.19 x10^6/uL (4.30-5.70) Hemoglobin 16.3 g/dL (13.0-17.5) Hematocrit 50.9 % (39.0-53.0) Mean Corpuscular Volume 98 fL (79-100) Mean Corpuscular Hemoglobin 32 pg (25-35) Mean Corpuscular Hemoglobin Concent 32 g/dL (31-37) Red Cell Distribution Width 15.1 % (11.5-14.5) Platelet Count 179 x10^3/uL (140-400) Neutrophils (%) (Auto) 66 % (31-73) Lymphocytes (%) (Auto) 23 % (24-48) Monocytes (%) (Auto) 9 % (0-9) Eosinophils (%) (Auto) 1 % (0-3) Basophils (%) (Auto) 1 % (0-3) Neutrophils # (Auto) 4.2 x10^3/uL (1.8-7.7) Lymphocytes # (Auto) 1.4 x10^3/uL (1.0-4.8) Monocytes # (Auto) 0.6 x10^3/uL (0.0-1.1) Eosinophils # (Auto) 0.1 x10^3/uL (0.0-0.7) Basophils # (Auto) 0.1 x10^3/uL (0.0-0.2) Sodium Level 135 mmol/L (136-145) Potassium Level 6.3 mmol/L (3.5-5.1) Chloride Level 94 mmol/L (98-107) Carbon Dioxide Level 23 mmol/L (21-32) Anion Gap 18 (6-14) Blood Urea Nitrogen 88 mg/dL (8-26) Creatinine 10.4 mg/dL (0.7-1.3) Estimated GFR (Cockcroft-Gault) 5.1 BUN/Creatinine Ratio 8 (6-20) Glucose Level 92 mg/dL (70-99) Calcium Level 8.0 mg/dL (8.5-10.1) Magnesium Level 2.9 mg/dL (1.8-2.4) Total Bilirubin 0.3 mg/dL (0.2-1.0) Aspartate Amino Transf (AST/SGOT) 14 U/L (15-37) Alanine Aminotransferase (ALT/SGPT) 16 U/L (16-63) Alkaline Phosphatase 132 U/L (46-116) Creatine Kinase 89 U/L (39-308) Creatine Kinase MB (Mass) 4.3 ng/mL (0.0-3.6) Creatine Kinase MB Relative Index 4.8 % (0-4) Troponin I High Sensitivity 11 ng/L (4-75) Total Protein 6.9 g/dL (6.4-8.2) Albumin 3.4 g/dL (3.4-5.0) Albumin/Globulin Ratio 1.0 (1.0-1.7) Lipase 490 U/L (73-393) Urine Collection Type Unknown Urine Color Red Urine Clarity Cloudy Urine pH 6.5 (<5.0-8.0) Urine Specific [place] 1.015 (1.000-1.030) Urine Protein mg/dL (NEG-TRACE) Urine Glucose (UA) mg/dL (NEG) Urine Ketones (Stick) mg/dL (NEG) Urine Blood (NEG) Urine Nitrite (NEG) Urine Bilirubin (NEG) Urine Urobilinogen Dipstick mg/dL (0.2 mg/dL) Urine Leukocyte Esterase (NEG) Urine RBC Tntc /HPF (0-2) Urine WBC 1-4 /HPF (0-4) Urine Squamous Epithelial Cells Occ /LPF Urine Bacteria 0 /HPF (0-FEW) Prothrombin Time 17.1 SEC (11.7-14.0) Prothromb Time International Ratio 1.4 (0.8-1.1) Activated Partial Thromboplast Time 37 SEC (24-38) Lactic Acid Level 0.6 mmol/L (0.4-2.0) Hepatitis B Surface Antigen Nonreactive (Nonreactive) SARS-CoV-2 RNA (FELI) Negative (Negative) SARS-CoV-2 Antigen (Rapid) Negative (NEGATIVE) Test 05/05/21 11:52 05/05/21 16:53 05/05/21 21:13 05/06/21 01:45 Glucose (Fingerstick) 96 mg/dL (70-99) 139 mg/dL (70-99) 315 mg/dL (70-99) 52 mg/dL (70-99) Test 05/06/21 02:26 05/06/21 07:20 Glucose (Fingerstick) 115 mg/dL (70-99) 84 mg/dL (70-99) Laboratory Tests Test 05/05/21 16:53 05/05/21 21:13 05/06/21 01:45 05/06/21 02:26 Glucose (Fingerstick) 139 mg/dL (70-99) 315 mg/dL (70-99) 52 mg/dL (70-99) 115 mg/dL (70-99) Test 05/06/21 07:20 Glucose (Fingerstick) 84 mg/dL (70-99) Assessment/Plan Assessment/Plan IMP HYPERKALEMIA HEMATURIA DM II HTN ESRD AFIB PLAN HD TODAY UF TO TW PAVEL NEEDED HOLDING XARELTO SUGGEST OP UROLOGY EVAL AND POSSIBLE CYSTO JESUS POWELL MD May 06, 2021 11:59
--- NOTE | 2021-05-06 12:26 | HP ---
DATE OF SERVICE: 05/06/2021 ADMIT DATE: 05/05/2021 CHIEF COMPLAINT: Back pain and hematuria. HISTORY OF PRESENT ILLNESS: A 60-year-old male who has end-stage renal disease on dialysis, who came in with lower back pain, nonfocal in nature and some bright red blood in the urine. CT scan in the ER showed no evidence of obstructive stone or hydronephrosis though there was a stone in the right kidney present. Urinalysis was not complete and did show a large amount of red blood cells, but not a lot amount of white cells and urine culture has not been obtained yet. The patient stays in dialysis now for renal function treatment. PAST MEDICAL HISTORY: Not available at this time. MEDICATIONS: Listed per the chart. ALLERGIES: No allergies are known. SOCIAL HISTORY: Unknown at this time. FAMILY HISTORY: Unremarkable. REVIEW OF SYSTEMS: There are no other known problems. OBJECTIVE: ENT: All within normal limits. NECK: No masses, nodes or bruits. LUNGS: Clear. CARDIOVASCULAR: Regular rate. No irregular beat or murmur. ABDOMEN: Benign. BACK: No masses, tenderness, or rash. EXTREMITIES: Unremarkable. ASSESSMENT: End-stage renal disease, on dialysis with gross hematuria, unclear etiology. No obstructive stone or lesion seen on CT scan raising the question of urinary tract infection or bladder lesion. PLAN: Urine culture and repeat urinalysis for now. May need cystoscopy if no sign of infection and blood continues. THIERRY/HELENE DR: [facility] TID: [id number]
[2021-05-06 15:00] VITALS: BP 116/61
[2021-05-06 19:00] VITALS: BP 123/68
[2021-05-06] MEDS: INSULIN GLARGINE SYRINGE. SQ SCH (21:00)
[2021-05-06] MEDS: ZOLPIDEM 5 MG TABLET. PO PRN (21:11)
[2021-05-06] MEDS: ACETAMINOPHEN 325 MG TABLET. PO PRN (21:12)
[2021-05-06 23:00] VITALS: BP 116/62
[2021-05-07] MEDS: ZOLPIDEM 5 MG TABLET. PO PRN ×2 (00:14→21:08)
[2021-05-07 03:15] VITALS: BP 124/74
[2021-05-07 07:00] VITALS: BP 145/79
[2021-05-07] MEDS: INSULIN LISPRO 300 UNITS/3 ML VIAL. SQ SCH ×4 (07:30→21:00)
[2021-05-07] MEDS: PIOGLITAZONE 15 MG TABLET. PO SCH (08:38)
[2021-05-07] MEDS: ATORVASTATIN CALCIUM 40 MG TABLET. PO SCH (08:38)
[2021-05-07] MEDS: CALCIUM ACETATE 667 MG CAPSULE PO SCH ×4 (08:38→21:09)
[2021-05-07] MEDS: CETIRIZINE HCL 10 MG TABLET. PO SCH (08:41)
[2021-05-07 08:51] LABS: BILIRUBIN,URINE NEGATIVE (NEG); CLARITY,URINE CLOUDY; COLOR,URINE YELLOW; NITRITE,URINE NEGATIVE (NEG); PROTEIN,URINE >=300 mg/dL (NEG-TRACE); UROBILINOGEN,URINE 0.2 mg/dL (0.2 mg/dL)
[2021-05-07 09:06] LABS: RBC,URINE >40 /HPF (0-2)
[2021-05-07 09:07] LABS: BACTERIA,URINE FEW /HPF (0-FEW); WBC,URINE >40 /HPF (0-4)
--- NOTE | 2021-05-07 10:18 | PDOC ---
Provider Note Date of Service: DATE: 05/07/21 TIME: 10:16 Provider Note vss, no temp, R flank pain gone- denies dysuria, states he got antibiotic in er but no record of this- may well have passed a stone- ua shows large wbc, will give 1 dose cefdinir pending urine cult results- resume xarelto 10 to see if hematuria returns- likely dc in am Justifications for Admission Other Justification ALICIA MALHOTRA MD May 07, 2021 10:18
[2021-05-07] MEDS ORDERED: CEFDINIR 300 MG CAPSULE PO ONE (10:30)
--- NOTE | 2021-05-07 10:44 | PDOC ---
Renal-Progress Notes Subjective Notes Notes NO NEW COMPLAINTS History of Present Illness Hx of present illness HEMATURIA IMPROVING Vitals Vitals Vital Signs Date Time Temp Pulse Resp B/P (MAP) Pulse Ox O2 Delivery O2 Flow Rate FiO2 05/07/21 08:38 96 145/79 05/07/21 07:00 98.1 17 94 Room Air 98.1 Weight Weight [ ] I.O. Intake and Output Intake and Output 05/07/21 07:00 Intake Total 480 ml Balance 480 ml Intake Oral 480 ml # Voids 1 # Bowel Movements 1 Labs Labs Laboratory Tests Test 05/06/21 16:18 05/06/21 19:25 05/06/21 20:20 05/07/21 07:45 Glucose (Fingerstick) 326 mg/dL (70-99) 83 mg/dL (70-99) 115 mg/dL (70-99) Urine Collection Type Unknown Urine Color Yellow Urine Clarity Cloudy Urine pH 6.0 (<5.0-8.0) Urine Specific [place] 1.020 (1.000-1.030) Urine Protein >=300 mg/dL (NEG-TRACE) Urine Glucose (UA) 250 mg/dL (NEG) Urine Ketones (Stick) Negative mg/dL (NEG) Urine Blood Large (NEG) Urine Nitrite Negative (NEG) Urine Bilirubin Negative (NEG) Urine Urobilinogen Dipstick 0.2 mg/dL (0.2 mg/dL) Urine Leukocyte Esterase Large (NEG) Urine RBC >40 /HPF (0-2) Urine WBC >40 /HPF (0-4) Urine Squamous Epithelial Cells Mod /LPF Urine Bacteria Few /HPF (0-FEW) Urine Mucus Mod /LPF Review of Systems Constitutional: yes: alert, oriented Ears/Nose/Throat: Yes: no symptom reported Eyes: Yes: no symptom reported Pulmonary: Yes no symptom reported Cardiovascular: Yes no symptom reported Gastrointestional: Yes: no symptom reported Genitourinary: Yes: hematuria Musculoskeletal: Yes: no symptom reported Skin: Yes no symptom reported Psychiatric/Neurological: Yes: no symptom reported Endocrine: Yes: no symptom reported Physical Exam General Appearance: no apparent distress Skin: warm Respiratory: bilateral CTA Heart: S1S2 Abdomen: soft, bowel sounds present Genitourinary: bladder flat Extremities: pulses present Neurology: alert, oriented Assessment Assessment IMP HYPERKALEMIA HEMATURIA DM II HTN ESRD AFIB UTI PLAN HD TOMORROW AGREE WITH ANTIBIOTICS PAVEL NEEDED RESUMING XARELTO SUGGEST OP UROLOGY EVAL AND POSSIBLE CYSTO JESUS POWELL MD May 07, 2021 10:44
[2021-05-07 11:00] VITALS: BP 119/73
[2021-05-07 15:00] VITALS: BP 116/69
[2021-05-07] MEDS: RIVAROXABAN 10 MG TABLET. PO SCH (17:40)
[2021-05-07 19:00] VITALS: BP 119/57
[2021-05-07] MEDS: INSULIN GLARGINE SYRINGE. SQ SCH (21:00)
[2021-05-07] MEDS: ACETAMINOPHEN 325 MG TABLET. PO PRN (21:09)
[2021-05-07 23:00] VITALS: BP 103/54
[2021-05-08 03:10] VITALS: BP 137/73
[2021-05-08 07:00] VITALS: BP 148/81
[2021-05-08] MEDS: INSULIN LISPRO 300 UNITS/3 ML VIAL. SQ SCH ×4 (07:30→21:00)
[2021-05-08] MEDS: ATORVASTATIN CALCIUM 40 MG TABLET. PO SCH (08:26)
[2021-05-08] MEDS: CETIRIZINE HCL 10 MG TABLET. PO SCH (08:26)
[2021-05-08] MEDS: CALCIUM ACETATE 667 MG CAPSULE PO SCH ×4 (08:26→20:24)
[2021-05-08] MEDS: PIOGLITAZONE 15 MG TABLET. PO SCH (08:26)
[2021-05-08 08:29] LABS: CALCIUM 7.8 mg/dL (8.5-10.1); GFR 5.3; POTASSIUM 5.5 mmol/L (3.5-5.1)
[2021-05-08 08:42] LABS: HEMATOCRIT 48.8 % (39.0-53.0); HEMOGLOBIN 15.6 g/dL (13.0-17.5); RED BLOOD COUNT 5.06 x10^6/uL (4.30-5.70); RED CELL DISTRIBUTION WIDTH 15.3 % (11.5-14.5); WHITE BLOOD COUNT 5.2 x10^3/uL (4.0-11.0)
[2021-05-08 11:00] VITALS: BP 137/84
--- NOTE | 2021-05-08 11:26 | NUR ---
SW following. Discussed with RN, pt from home with , room air, renal diet. Dialysis T, Th, Sa, COVID-19 negative. Nephrology following. Pt on PO abx. Per RNDr. Welch plans to discharge in the next 24-48 hours. MAGDY will continue to follow.
--- NOTE | 2021-05-08 11:29 | PDOC ---
Renal-Progress Notes Subjective Notes Notes FEELS WELL History of Present Illness Hx of present illness STABLE Vitals Vitals Vital Signs Date Time Temp Pulse Resp B/P (MAP) Pulse Ox O2 Delivery O2 Flow Rate FiO2 05/08/21 08:25 88 148/81 05/08/21 07:44 Room Air 05/08/21 07:00 97.9 16 95 97.9 Weight Weight [ ] I.O. Intake and Output Intake and Output 05/08/21 07:00 Intake Total 1140 ml Balance 1140 ml Intake Oral 1140 ml # Voids 1 Labs Labs Laboratory Tests Test 05/07/21 11:49 05/07/21 16:49 05/07/21 20:32 05/08/21 07:00 Glucose (Fingerstick) 187 mg/dL (70-99) 135 mg/dL (70-99) 184 mg/dL (70-99) White Blood Count 5.2 x10^3/uL (4.0-11.0) Red Blood Count 5.06 x10^6/uL (4.30-5.70) Hemoglobin 15.6 g/dL (13.0-17.5) Hematocrit 48.8 % (39.0-53.0) Mean Corpuscular Volume 97 fL (79-100) Mean Corpuscular Hemoglobin 31 pg (25-35) Mean Corpuscular Hemoglobin Concent 32 g/dL (31-37) Red Cell Distribution Width 15.3 % (11.5-14.5) Platelet Count 180 x10^3/uL (140-400) Sodium Level 136 mmol/L (136-145) Potassium Level 5.5 mmol/L (3.5-5.1) Chloride Level 92 mmol/L (98-107) Carbon Dioxide Level 27 mmol/L (21-32) Anion Gap 17 (6-14) Blood Urea Nitrogen 71 mg/dL (8-26) Creatinine 10.0 mg/dL (0.7-1.3) Estimated GFR (Cockcroft-Gault) 5.3 Glucose Level 111 mg/dL (70-99) Calcium Level 7.8 mg/dL (8.5-10.1) Test 05/08/21 07:29 Glucose (Fingerstick) 111 mg/dL (70-99) Micro Micro Microbiology 05/06/21 Urine Culture - Final, Complete Review of Systems Constitutional: yes: alert, oriented Ears/Nose/Throat: Yes: no symptom reported Eyes: Yes: no symptom reported Pulmonary: Yes no symptom reported Cardiovascular: Yes no symptom reported Gastrointestional: Yes: no symptom reported Genitourinary: Yes: hematuria Musculoskeletal: Yes: no symptom reported Skin: Yes no symptom reported Psychiatric/Neurological: Yes: no symptom reported Endocrine: Yes: no symptom reported Physical Exam General Appearance: no apparent distress Skin: warm Respiratory: bilateral CTA Heart: S1S2 Abdomen: soft, bowel sounds present Genitourinary: bladder flat Extremities: pulses present Neurology: alert, oriented Assessment Assessment IMP HYPERKALEMIA-CORRECTED HEMATURIA-IMPROVING DM II HTN ESRD AFIB UTI PLAN HD TOMORROW AGREE WITH ANTIBIOTICS PAVEL NEEDED RESUMING XARELTO SUGGEST OP UROLOGY EVAL AND POSSIBLE CYSTO JESUS POWELL MD May 08, 2021 11:29
[2021-05-08 15:00] VITALS: BP 132/77
[2021-05-08] MEDS: RIVAROXABAN 10 MG TABLET. PO SCH (17:17)
[2021-05-08 19:00] VITALS: BP 124/59
--- NOTE | 2021-05-08 19:57 | PN ---
DATE: 05/08/2021 LOCATION: He is in room 554. SUBJECTIVE: This 60-year-old male remains hospitalized with hematuria and abdominal and flank pain. He has end-stage renal disease and is on hemodialysis. The patient is feeling better with no further pain and is noted that the urine is no longer bloody. Second urine appears to be consistent with an infection and I believe that after a dose of antibiotics was already given, no culture results are available to date. OBJECTIVE: VITAL SIGNS: Stable. He is afebrile. GENERAL: He is awake and alert. CHEST: Clear. HEART: Regular. ABDOMEN: Benign. LABORATORY DATA: Sugars are decent. ASSESSMENT: 1. Hematuria felt most likely due to urinary tract infection. 2. Diabetes. 3. End-stage renal disease. 4. Hypertension. 5. History of atrial fibrillation. 6. Hyperkalemia, corrected. PLAN: Continue present care with likely discharge tomorrow. Awaiting final culture results, although culture was obtained after antibiotics had already started in addition may not be very helpful. Renal help is appreciated. MAHESH DR: Cookie TID: [id number]
[2021-05-08] MEDS: ACETAMINOPHEN 325 MG TABLET. PO PRN (20:25)
[2021-05-08] MEDS: CEFDINIR 300 MG CAPSULE PO SCH (20:28)
[2021-05-08] MEDS: ZOLPIDEM 5 MG TABLET. PO PRN (20:28)
[2021-05-08] MEDS: INSULIN GLARGINE SYRINGE. SQ SCH (22:44)
[2021-05-08 23:00] VITALS: BP 112/55
[2021-05-09 03:00] VITALS: BP 151/86
[2021-05-09 07:00] VITALS: BP 167/81
[2021-05-09 07:20] LABS: CALCIUM 7.9 mg/dL (8.5-10.1); CREATININE 11.6 mg/dL (0.7-1.3); GFR 4.5; POTASSIUM 5.6 mmol/L (3.5-5.1)
[2021-05-09] MEDS: INSULIN LISPRO 300 UNITS/3 ML VIAL. SQ SCH (07:30)
[2021-05-09] MEDS: CEFDINIR 300 MG CAPSULE PO SCH (08:26)
[2021-05-09] MEDS: CALCIUM ACETATE 667 MG CAPSULE PO SCH (08:26)
[2021-05-09] MEDS: ATORVASTATIN CALCIUM 40 MG TABLET. PO SCH (08:26)
[2021-05-09] MEDS: PIOGLITAZONE 15 MG TABLET. PO SCH (08:26)
[2021-05-09] MEDS: CETIRIZINE HCL 10 MG TABLET. PO SCH (08:26)
[2021-05-09] MEDS ORDERED: CEFD300C PO (08:37)
--- NOTE | 2021-05-09 09:09 | DS ---
DATE OF DISCHARGE: 05/09/2021 PRIMARY DIAGNOSES: 1. Hematuria, felt due urinary tract infection. 2. Low back abdominal pain, felt secondary to above. 3. End-stage renal disease, on dialysis. 4. Diabetes. 5. History of atrial fibrillation. 6. Hyperlipidemia. CHIEF COMPLAINT/HISTORY OF PRESENT ILLNESS: This 60-year-old male in severe abdominal pain and low back pain over a day or prior to admission with hematuria, presenting to the Emergency Room where this was confirmed. He had received IV antibiotics prior to urine been collected for urine infection. His initial UA was incomplete, not working at anything other than white and red blood cells in urine. SUMMARY OF STAY: The patient was admitted, was treated with IV Rocephin, improved on a daily basis, transitioned to oral Omnicef, continued to do well on the same and will complete another 7 days as an outpatient. Urine cultures were negative, but again was not obtained until after he had already received IV antibiotics. He was back to his baseline. He had no further hematuria, was felt ready for discharge and this was accomplished. DISPOSITION: The patient is discharged to home on his regular home, ADA and renal diet. ACTIVITY: As tolerated, office in 2 weeks. DISCHARGE MEDICATIONS: Listed on the med rec and have been addressed. JULES DR: Cookie TID: [id number]
[2021-05-09 11:00] VITALS: BP 167/81
--- NOTE | 2021-05-09 11:27 | PDOC ---
Renal-Progress Notes Subjective Notes Notes FEELS WELL History of Present Illness Hx of present illness STABLE Vitals Vitals Vital Signs Date Time Temp Pulse Resp B/P (MAP) Pulse Ox O2 Delivery O2 Flow Rate FiO2 05/09/21 08:26 91 151/86 05/09/21 07:45 Room Air 05/09/21 07:00 98.0 20 93 98.0 Weight Weight [ ] I.O. Intake and Output Intake and Output 05/09/21 07:00 Intake Total 3650 ml Balance 3650 ml Intake Oral 3650 ml # Voids 1 Labs Labs Laboratory Tests Test 05/08/21 17:09 05/08/21 19:45 05/09/21 06:30 05/09/21 07:50 Glucose (Fingerstick) 134 mg/dL (70-99) 229 mg/dL (70-99) 86 mg/dL (70-99) Sodium Level 132 mmol/L (136-145) Potassium Level 5.6 mmol/L (3.5-5.1) Chloride Level 91 mmol/L (98-107) Carbon Dioxide Level 27 mmol/L (21-32) Anion Gap 14 (6-14) Blood Urea Nitrogen 86 mg/dL (8-26) Creatinine 11.6 mg/dL (0.7-1.3) Estimated GFR (Cockcroft-Gault) 4.5 Glucose Level 82 mg/dL (70-99) Calcium Level 7.9 mg/dL (8.5-10.1) Micro Micro Microbiology 05/06/21 Urine Culture - Final, Complete Review of Systems Constitutional: yes: alert, oriented Ears/Nose/Throat: Yes: no symptom reported Eyes: Yes: no symptom reported Pulmonary: Yes no symptom reported Cardiovascular: Yes no symptom reported Gastrointestional: Yes: no symptom reported Genitourinary: Yes: hematuria Musculoskeletal: Yes: no symptom reported Skin: Yes no symptom reported Psychiatric/Neurological: Yes: no symptom reported Endocrine: Yes: no symptom reported Physical Exam General Appearance: no apparent distress Skin: warm Respiratory: bilateral CTA Heart: S1S2 Abdomen: soft, bowel sounds present Genitourinary: bladder flat Extremities: pulses present Neurology: alert, oriented Assessment Assessment IMP HYPERKALEMIA-CORRECTED HEMATURIA-IMPROVING DM II HTN ESRD AFIB UTI PLAN HD TODAY UF TO TW SUGGEST OP UROLOGY EVAL AND POSSIBLE CYSTO POSSIBLE D/C TODAY JESUS POWELL MD May 09, 2021 11:27
[2021-05-09] MEDS ORDERED: DIALYSIS PATIENT. MC PRN (12:45)
--- NOTE | 2021-05-09 13:29 | NUR ---
dismissed to home with after dialysis completed. reviewed new medication and follow up with Dr. Welch
== END 2021-05-09 13:30 | disposition home or self-care (01) | DRG 640 ==
LOC: ER 07:49 → 5 SOUTH 11:05
PROVIDERS: ADMIT Family Medicine; ATTEND Family Medicine
PROC: 5A1D70Z Performance of Urinary Filtration, Intermittent, Less than 6 Hours Per Day (ICD-10-PCS; 2021-05-05)
PROC: 5A1D70Z Performance of Urinary Filtration, Intermittent, Less than 6 Hours Per Day (ICD-10-PCS; 2021-05-06)
PROC: 5A1D70Z Performance of Urinary Filtration, Intermittent, Less than 6 Hours Per Day (ICD-10-PCS; principal; 2021-05-09)
DX: E87.5 Hyperkalemia (principal); N18.6 End stage renal disease; N39.0 Urinary tract infection, site not specified; I13.2 Hypertensive heart and chronic kidney disease with heart failure and with stage 5 chronic kidney disease, or end stage renal disease; Z68.41 Body mass index [BMI] 40.0-44.9, adult; E11.22 Type 2 diabetes mellitus with diabetic chronic kidney disease; E78.00 Pure hypercholesterolemia, unspecified; E78.5 Hyperlipidemia, unspecified; I48.91 Unspecified atrial fibrillation; I50.9 Heart failure, unspecified; N20.0 Calculus of kidney; R31.0 Gross hematuria; Z82.49 Family history of ischemic heart disease and other diseases of the circulatory system; Z90.49 Acquired absence of other specified parts of digestive tract; Z99.2 Dependence on renal dialysis; E21.3 Hyperparathyroidism, unspecified; Z20.822 Contact with and (suspected) exposure to COVID-19
CPT/HCPCS: 36415; 74176; 80048; 80053; 81001; 82553; 82962; 83605; 83690; 83735; 84484; 85025; 85027; 85610; 85730; 87086; 87340; 87426; 93005; 96374; 96375; J0696; J1815; J3010; P9612; U0003; U0005; 99291-25; G0378

== ENCOUNTER 2021-06-23 23:43 | Observation (INO) | payer MEDICARE ==
[~2021-06-23] VITALS: Ht 170.2 cm; Wt 120.3 kg
[~2021-06-23 23:43] MED LIST changes: +CALC667T4 PO; +CEFD300C PO; +DOCU-109 PO; +RIVA15TA PO; +SUCR500T PO
[2021-06-24 01:33] LABS: BASO % 0 % (0-3); EOS # 0.1 x10^3/uL (0.0-0.7); EOS % 1 % (0-3); HEMATOCRIT 49.1 % (39.0-53.0); HEMOGLOBIN 16.2 g/dL (13.0-17.5); LYMPH % 13 % (24-48); MEAN CORPUSCULAR HEMOGLOBIN 31 pg (25-35); MEAN CORPUSCULAR HGB CONC 33 g/dL (31-37); MEAN CORPUSCULAR VOLUME 95 fL (79-100); MONO # 0.5 x10^3/uL (0.0-1.1); MONO % 6 % (0-9); NEUT # 6.5 x10^3/uL (1.8-7.7); NEUT % 80 % (31-73); PLATELET COUNT 172 x10^3/uL (140-400); RED BLOOD COUNT 5.17 x10^6/uL (4.30-5.70); RED CELL DISTRIBUTION WIDTH 14.6 % (11.5-14.5); WHITE BLOOD COUNT 8.2 x10^3/uL (4.0-11.0)
[2021-06-24] MEDS ORDERED: CONTRAST GIVEN. MC PRN (01:45)
[2021-06-24] MEDS ORDERED: IOHEXOL 350 MG/ML 100 ML VIAL. IV ONE (02:00)
[2021-06-24] MEDS ORDERED: MORPHINE SULFATE 4 MG/ML INJ. IVP ONE (02:00)
[2021-06-24] MEDS ORDERED: IV NORMAL SALINE 500ML BAG 250 ML IV ONE (02:00)
[2021-06-24] MEDS ORDERED: PIPERACILLIN/TAZOBACTAM 2.25 GM in IV NORMAL SALINE 50ML 50 ML IV ONE (02:00)
[2021-06-24] MEDS ORDERED: ONDANSETRON PF 4 MG/2 ML VIAL. IVP ONE (02:00)
[2021-06-24 02:47] LABS: ALBUMIN 3.2 g/dL (3.4-5.0); ALBUMIN/GLOBULIN RATIO 0.8 (1.0-1.7); CREATININE 9.9 mg/dL (0.7-1.3); GFR 5.4; TOTAL BILIRUBIN 0.4 mg/dL (0.2-1.0)
[2021-06-24 02:50] LABS: POTASSIUM 6.1 mmol/L (3.5-5.1)
--- NOTE | 2021-06-24 02:55 | PHYS DOC ---
Past Medical History Past Medical History: A-Fib, Diabetes-Type II, High Cholesterol, Renal Failure Past Surgical History: Appendectomy, Other Additional Past Surgical Histo: SUGEY SHUNT PLACED JUL 2018 Smoking Status: Heavy Tobacco Smoker Alcohol Use: None Drug Use: None Adult General Chief Complaint Chief Complaint: GI PROBLEM HPI HPI The patient is a 61-year-old male with a history of hypertension, hyperlipidemia, paroxysmal atrial fibrillation on an oral anticoagulant, i nsulin-dependent diabetes and end-stage renal disease on hemodialysis TTSat and compliant. He dialyzes through a left upper extremity AV fistula. Mr. Scott presents for evaluation of sudden onset of periumbilical abdominal discomfort with onset at 6 PM, about 6 hours prior to arrival. Discomfort is sharp and worse with palpation. It does not radiate. Severity 8 out of 10 at present patient reports no prior history of similar discomfort in the past. Associated nausea without any vomiting. No associated fevers, hematemesis, hematochezia or melena, upper respiratory congestion/rhinorrhea, cough, sore throat, shortness of breath or chest pain of any kind, flank pain, midline back pain, changes in bowel habits, pain, swelling, weakness, numbness or tingling to arms or legs. Patient is alert and appropriately interactive and in no acute distress. Vital signs are notable for tachycardia and rhythm on the monitor appears to be atrial fibrillation with rapid response and a rate in the 120s. Review of Systems Review of Systems A 12 point review of systems was completed and was negative except where noted in HPI above. Current Medications Current Medications Current Medications Medications (Trade) Dose Ordered Sig/Ayo Start Time Stop Time Status Last Admin Dose Admin Calcium Gluconate (Calcium Gluconate) 1,000 mg 1X ONCE 06/24/21 05:00 06/24/21 05:01 Dextrose (Dextrose 50%-Water Syringe) 25 gm 1X ONCE 06/24/21 04:30 06/24/21 04:31 Diltiazem HCl (Cardizem Iv Push) 15 mg 1X ONCE 06/24/21 04:30 06/24/21 04:31 06/24/21 04:02 15 MG Info (CONTRAST GIVEN -- Rx MONITORING) 1 each PRN DAILY PRN 06/24/21 01:45 06/26/21 01:44 Insulin Human Regular (HumuLIN R VIAL) 10 unit 1X ONCE 06/24/21 04:30 06/24/21 04:31 Iohexol (Omnipaque 350 Mg/ml) 100 ml 1X ONCE 06/24/21 02:00 06/24/21 02:01 DC 06/24/21 01:46 100 ML Morphine Sulfate (Morphine Sulfate) 4 mg 1X ONCE 06/24/21 02:00 06/24/21 02:01 DC 06/24/21 02:01 1 MG Ondansetron HCl (Zofran) 4 mg 1X ONCE 06/24/21 02:00 06/24/21 02:01 DC 06/24/21 01:28 4 MG Piperacillin Sod/ Tazobactam Sod 2.25 gm/Sodium Chloride 50 ml @ 100 mls/hr 1X ONCE 06/24/21 02:00 06/24/21 02:29 DC 06/24/21 02:05 100 MLS/HR Sodium Chloride 250 ml @ 500 mls/hr 1X ONCE 06/24/21 02:00 06/24/21 02:29 DC 06/24/21 01:26 500 MLS/HR Allergies Allergies Allergies Coded Allergies Type Severity Reaction Last Updated Verified No Known Drug Allergies 05/05/21 No Physical Exam Physical Exam 61-year-old male appearing nontoxic and in no acute distress. Head is normocep halic and atraumatic. Neck is supple and nontender. Oropharynx is moist. Lungs are clear to auscultation at all stations. There is a normal S1 and S2 without rubs or gallops and capillary refill is appropriate, less than 2 seconds globally. There is an irregular, mildly tachycardic rhythm. Abdomen is soft and nondistended with mild focal periumbilical tenderness to palpation without rebound or guarding. No pulsatile irreducible mass. Skin is warm and dry without cyanosis, clubbing or edema. Psychiatrically, the patient demonstrates appropriate mood and affect and is alert. Evaluation of the groin reveals no erythema, warmth, swelling, tenderness to palpation, inguinal lymphadenopathy or other acute process seen. Evaluation of the extremities reveals BUEs and BLEs neurovascularly intact distally with strength 5 out of 5, sensation intact light touch in all nerve distributions, radial, DP and PT pulses 2+ and equal bilaterally, capillary refill less than 2 seconds, hands and feet warm and well- perfused. No dependent peripheral edema distally. No calf tenderness or swelling bilaterally. Homans test is negative bilaterally Current Patient Data Vital Signs Vital Signs Date Time Temp Pulse Resp B/P (MAP) Pulse Ox O2 Delivery O2 Flow Rate FiO2 06/24/21 04:02 132 169/96 06/24/21 02:05 22 93 Nasal Cannula 2.0 06/24/21 00:50 98.6 98.6 Lab Values Laboratory Tests Test 06/24/21 01:00 06/24/21 01:45 White Blood Count 8.2 x10^3/uL (4.0-11.0) Red Blood Count 5.17 x10^6/uL (4.30-5.70) Hemoglobin 16.2 g/dL (13.0-17.5) Hematocrit 49.1 % (39.0-53.0) Mean Corpuscular Volume 95 fL (79-100) Mean Corpuscular Hemoglobin 31 pg (25-35) Mean Corpuscular Hemoglobin Concent 33 g/dL (31-37) Red Cell Distribution Width 14.6 % (11.5-14.5) H Platelet Count 172 x10^3/uL (140-400) Neutrophils (%) (Auto) 80 % (31-73) H Lymphocytes (%) (Auto) 13 % (24-48) L Monocytes (%) (Auto) 6 % (0-9) Eosinophils (%) (Auto) 1 % (0-3) Basophils (%) (Auto) 0 % (0-3) Neutrophils # (Auto) 6.5 x10^3/uL (1.8-7.7) Lymphocytes # (Auto) 1.0 x10^3/uL (1.0-4.8) Monocytes # (Auto) 0.5 x10^3/uL (0.0-1.1) Eosinophils # (Auto) 0.1 x10^3/uL (0.0-0.7) Basophils # (Auto) 0.0 x10^3/uL (0.0-0.2) Sodium Level 133 mmol/L (136-145) L Potassium Level 6.1 mmol/L (3.5-5.1) *H Chloride Level 98 mmol/L (98-107) Carbon Dioxide Level 24 mmol/L (21-32) Anion Gap 11 (6-14) Blood Urea Nitrogen 67 mg/dL (8-26) H Creatinine 9.9 mg/dL (0.7-1.3) H Estimated GFR (Cockcroft-Gault) 5.4 BUN/Creatinine Ratio 7 (6-20) Glucose Level 159 mg/dL (70-99) H Lactic Acid Level 1.1 mmol/L (0.4-2.0) Calcium Level 8.0 mg/dL (8.5-10.1) L Total Bilirubin 0.4 mg/dL (0.2-1.0) Aspartate Amino Transferase (AST) 18 U/L (15-37) Alanine Aminotransferase (ALT) 20 U/L (16-63) Alkaline Phosphatase 122 U/L (46-116) H Troponin I High Sensitivity 16 ng/L (4-75) Total Protein 7.0 g/dL (6.4-8.2) Albumin 3.2 g/dL (3.4-5.0) L Albumin/Globulin Ratio 0.8 (1.0-1.7) L Lipase 182 U/L (73-393) Laboratory Tests 06/24/21 01:00 Laboratory Tests 06/24/21 01:45 EKG EKG Atrial fibrillation, rate 120s, no acute ST elevation or depression, EP interpretation. Radiology/Procedures Radiology/Procedures CTA CHEST_ABDOMEN_AND PELVIS History: Umbilical pain. Chest pain. Technique: CT of the chest, abdomen and pelvis were performed with intravenous contrast. Coronal and sagittal reconstructions were performed. Exposure: One or more of the following individualized dose reduction techniques were utilized for this examination: 1. Automated exposure control 2. Adjustment of the mA and/or kV according to patient size 3. Use of iterative reconstruction technique. Comparison: May 05, 2021 Findings: Chest: No aortic aneurysm, dissection or injury. No pulmonary embolism. No pathologic lymphadenopathy. Coronary artery calcifications. No consolidation or pleural effusion. No pneumothorax. Mild paraseptal emphysema. Mild bilateral lower lobe linear atelectasis. Enlarged pulmonary artery measures 4 cm. 3 mm left lower lobe pulmonary nodule (series 3 image 82), calcified on previous study. 3 mm left lower lobe pulmonary nodule (image 53). Not included in the image previously. 2 mm right middle lobe pulmonary nodule (image 70), unchanged. Abdomen and pelvis: The spleen, liver, adrenal glands, pancreas and gallbladder are unremarkable. No biliary ductal dilatation. Bilateral renal atrophy. No renal calculus. No hydronephrosis. Decompressed urinary bladder. Bilateral nonspecific perinephric stranding. Prior appendectomy. No evidence of bowel obstruction. Dystrophic calcification within the anterior mesentery, may relate to prior omental infarct or fat necrosis. No pathologic lymphadenopathy. No ascites. Bilateral fat-containing inguinal hernias. Small fat-containing umbilical hernia. Moderate atheromatous plaque throughout the nonaneurysmal abdominal aorta and branch vessels. Patent celiac, superior mesenteric, bilateral renal and inferior mesenteric arteries. Patent iliac and proximal lower extremity arteries. Bones: T9 vertebral body hemangioma. Impression: Chest CT: 1. No acute thoracic pathology. 2. Enlarged pulmonary artery, may indicate pulmonary artery hypertension. 3. Coronary artery calcifications. 4. Small pulmonary nodules. Recommend one-year follow-up chest CT without contrast. Abdomen and pelvis CT: 1. No acute abdominal or pelvic pathology. 2. Bilateral renal atrophy with perinephric edema. Electronically signed by: Froy Hogan DO (06/24/2021 3:03 AM) [facility] DICTATED and SIGNED BY: FROY HOGAN DO DATE: 06/24/21 [id number] Course & Med Decision Making Course & Med Decision Making 61-year-old gentleman, very comorbid, presenting for rather severe acute onset periumbilical abdominal pain which has persisted over the past several hours. Checking large work-up as noted and will give a very small fluid bolus along with medication for nausea and discomfort as per flowsheet. 0400: Resting comfortably in no acute distress on serial reassessments. Still having periumbilical abdominal discomfort but reports that it is somewhat improved after therapy here in the emergency department. Large work-up including labs, EKG and imaging is remarkable primarily for evidence of atrial fibrillation with rapid ventricular response; have addressed with push dose Cardizem and rate is satisfactory. Patient is also uremic and hyperkalemic; potassium is 6.1 and have elected to temporize with calcium gluconate and insulin/dextrose. Case discussed with Dr. Tobar of nephrology who is arranging for urgent hemodialysis. Case discussed with Dr. Welch who graciously accepts the patient for admission. Will place a consult to gastroenterology for abdominal discomfort of unclear etiology without laboratory or imaging correlates on work-up here in the emergency department. Stable for admission. All questions from patient have been answered. CC time 65 minutes, independent of procedure time, for severe hyperkalemia, uremia requiring urgent hemodialysis, and atrial fibrillation with RVR. Dragon Disclaimer Dragon Disclaimer This electronic medical record was generated, in whole or in part, using a voice recognition dictation system. Departure Departure Impression: Primary Impression: Uremia Additional Impressions: Acute hyperkalemia Atrial fibrillation with rapid ventricular response Periumbilical abdominal pain Disposition: ADMITTED INPATIENT Condition: STABLE Referrals: RERE WELCH MD (PCP) Problem Qualifiers NADER CANSECO MD Jun 24, 2021 02:55
--- NOTE | 2021-06-24 03:06 | RAD ---
CTA CHEST_ABDOMEN_AND PELVIS History: Umbilical pain. Chest pain. Technique: CT of the chest, abdomen and pelvis were performed with intravenous contrast. Coronal and sagittal reconstructions were performed. Exposure: One or more of the following individualized dose reduction techniques were utilized for thi s examination: 1. Automated exposure control 2. Adjustment of the mA and/or kV according to patient size 3. Use of iterative reconstruction technique. Comparison: May 05, 2021 Findings: Chest: No aortic aneurysm, dissection or injury. No pulmonary embolism. No pathologic lymphadenopathy . Coronary artery calcifications. No consolidation or pleural effusion. No pneumothorax. Mild parasep marshall emphysema. Mild bilateral lower lobe linear atelectasis. Enlarged pulmonary artery measures 4 cm. 3 mm left lower lobe pulmonary nodule (series 3 image 82), calcified on previous study. 3 mm left low er lobe pulmonary nodule (image 53). Not included in the image previously. 2 mm right middle lobe pul monary nodule (image 70), unchanged. Abdomen and pelvis: The spleen, liver, adrenal glands, pancreas and gallbladder are unremarkable. No biliary ductal dilatation. Bilateral renal atrophy. No renal calculus. No hydronephrosis. Decompresse d urinary bladder. Bilateral nonspecific perinephric stranding. Prior appendectomy. No evidence of bowel obstruction. Dystrophic calcification within the anterior me sentery, may relate to prior omental infarct or fat necrosis. No pathologic lymphadenopathy. No ascit es. Bilateral fat-containing inguinal hernias. Small fat-containing umbilical hernia. Moderate atheromatous plaque throughout the nonaneurysmal abdominal aorta and branch vessels. Patent celiac, superior mesenteric, bilateral renal and inferior mesenteric arteries. Patent iliac and proxi mal lower extremity arteries. Bones: T9 vertebral body hemangioma. Impression: Chest CT: 1. No acute thoracic pathology. 2. Enlarged pulmonary artery, may indicate pulmonary artery hypertension. 3. Coronary artery calcifications. 4. Small pulmonary nodules. Recommend one-year follow-up chest CT without contrast. Abdomen and pelvis CT: 1. No acute abdominal or pelvic pathology. 2. Bilateral renal atrophy with perinephric edema. Electronically signed by: Froy Hogan DO (06/24/2021 3:03 AM) [facility]
[2021-06-24] MEDS ORDERED: DEXTROSE 50% 25 GM / 50ML DISP.SYRIN. IV ONE ×2 (04:30)
[2021-06-24] MEDS ORDERED: CALCIUM GLUCONATE 1,000 MG/10 ML VIAL. IVP ONE ×2 (04:30→05:00)
[2021-06-24] MEDS ORDERED: INSULIN REGULAR 100 UNIT/ML 3ML VIAL. IV ONE (04:30)
[2021-06-24] MEDS ORDERED: ONDANSETRON PF 4 MG/2 ML VIAL. IVP PRN (04:45)
[2021-06-24] MEDS ORDERED: MORPHINE SULFATE 2 MG/ML INJ. IVP PRN (04:45)
--- NOTE | 2021-06-24 05:55 | EKG ---
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
[2021-06-24 06:00] VITALS: BP 139/92
[2021-06-24 10:48] VITALS: BP 137/91
[2021-06-24] MEDS ORDERED: IV NORMAL SALINE 1000ML BAG 1,000 ML IV PRN ×2 (11:45)
[2021-06-24] MEDS ORDERED: DIALYSIS PATIENT. MC PRN ×2 (11:45)
[2021-06-24] MEDS ORDERED: ALBUMIN HUMAN 25% 200 ML IV PRN (11:45)
--- NOTE | 2021-06-24 11:59 | PDOC ---
Provider Note Date of Service: DATE: 06/24/21 TIME: 11:57 Provider Note [id number] Justifications for Admission Other Justification ALICIA MALHOTRA MD Jun 24, 2021 11:59
[2021-06-24] MEDS: SUCROFERRIC OXYHYDROXIDE PO SCH ×2 (14:00→21:00)
--- NOTE | 2021-06-24 14:47 | PDOC2 ---
CONSULT Date of Consult Date of Consult DATE: 06/24/21 TIME: 14:42 Reason for Consult Reason for Consult: Rapid atrial fibrillation. Referring Physician Referring Physician: Dr. Seymour Identification/Chief Complaint Chief Complaint Abdominal pain Source Source: Chart review, Patient History of Present Illness Reason for Visit: The patient is a 61-year-old male who was admitted through the emergency room with a chief complaint of approximately 6 hours of abdominal pain. This came on abruptly and persisted until being seen in the emergency room. Initial work-up included a CT scan of the abdomen chest and pelvis showed that showed no acute pathology. Initial lab testing included a white count of 8.2, potassium 6.1, creatinine of 9.9 and a normal troponin at 16. The patient has multiple baseline medical problems including paroxysmal atrial fibrillation for which she is treated with with Cardizem 300 mg a day and Xarelto. He also has a history of hypertension, hyperlipidemia, diabetes mellitus and end-stage renal disease with hemodialysis. The patient was feeling better overnight. He is being arranged for a dialysis run by the renal service. His heart rate has improved but still elevated at 124. He denies chest pain. His abdominal discomfort has improved. Past Medical History Cardiovascular: AFIB, CHF, HTN, Hyperlipidemia Pulmonary: Other CENTRAL NERVOUS SYSTEM: Periperal neuropathy GI: No pertinent hx Heme/Onc: No pertinent hx Hepatobiliary: No pertinent hx Psych: No pertinent hx Renal/: Chronic renal failure Endocrine: Diabetes, Hyperparathyroidism Past Surgical History Past Surgical History: Appendectomy, Tonsillectomy Family History Family History: Hypertension Social History 1 pack per day ALCOHOL: none Drugs: None Lives: with Family Current Problem List Problem List Problems Medical Problems: (1) Acute hyperkalemia Status: Acute (2) Atrial fibrillation with rapid ventricular response Status: Acute (3) Periumbilical abdominal pain Status: Acute Current Medications Current Medications Current Medications Morphine Sulfate (Morphine Sulfate) 4 mg 1X ONCE IVP Last administered on 06/24/21at 02:01; Start 06/24/21 at 02:00; Stop 06/24/21 at 02:01; Status DC Sodium Chloride 250 ml @ 500 mls/hr 1X ONCE IV Last administered on 06/24/21at 01:26; Start 06/24/21 at 02:00; Stop 06/24/21 at 02:29; Status DC Ondansetron HCl (Zofran) 4 mg 1X ONCE IVP Last administered on 06/24/21at 01:28; Start 06/24/21 at 02:00; Stop 06/24/21 at 02:01; Status DC Piperacillin Sod/ Tazobactam Sod 2.25 gm/Sodium Chloride 50 ml @ 100 mls/hr 1X ONCE IV Last administered on 06/24/21at 02:05; Start 06/24/21 at 02:00; Stop 06/24/21 at 02:29; Status DC Iohexol (Omnipaque 350 Mg/ml) 100 ml 1X ONCE IV Last administered on 06/24/21at 01:46; Start 06/24/21 at 02:00; Stop 06/24/21 at 02:01; Status DC Info (CONTRAST GIVEN -- Rx MONITORING) 1 each PRN DAILY PRN MC SEE COMMENTS; Start 06/24/21 at 01:45; Stop 06/26/21 at 01:44 Diltiazem HCl (Cardizem Iv Push) 15 mg 1X ONCE IVP Last administered on 06/24/21at 04:02; Start 06/24/21 at 04:30; Stop 06/24/21 at 04:31; Status DC Calcium Gluconate (Calcium Gluconate) 1,000 mg 1X ONCE IVP Last administered on 06/24/21at 04:33; Start 06/24/21 at 04:30; Stop 06/24/21 at 04:31; Status DC Calcium Gluconate (Calcium Gluconate) 1,000 mg 1X ONCE IVP ; Start 06/24/21 at 05:00; Stop 06/24/21 at 05:01; Status DC Dextrose (Dextrose 50%-Water Syringe) 25 gm 1X ONCE IV Last administered on 06/24/21at 04:44; Start 06/24/21 at 04:30; Stop 06/24/21 at 04:31; Status DC Dextrose (Dextrose 50%-Water Syringe) 25 gm 1X ONCE IV ; Start 06/24/21 at 04:30; Stop 06/24/21 at 04:31; Status DC Insulin Human Regular (HumuLIN R VIAL) 10 unit 1X ONCE IV Last administered on 06/24/21at 04:42; Start 06/24/21 at 04:30; Stop 06/24/21 at 04:31; Status DC Ondansetron HCl (Zofran) 4 mg PRN Q8HRS PRN IVP NAUSEA/VOMITING 1ST CHOICE; Start 06/24/21 at 04:45; Stop 06/25/21 at 04:44 Morphine Sulfate (Morphine Sulfate) 2 mg PRN Q3HRS PRN IVP SEVERE PAIN 7-10 Last administered on 06/24/21at 05:23; Start 06/24/21 at 04:45; Stop 06/25/21 at 04:44 Diltiazem HCl (Cardizem Iv Push) 10 mg 1X ONCE IVP Last administered on 06/24/21at 05:26; Start 06/24/21 at 05:30; Stop 06/24/21 at 05:31; Status DC Rivaroxaban (Xarelto) 15 mg DAILYWSUP PO ; Start 06/25/21 at 09:00 Calcium Acetate (Phoslo) 667 mg QID@0800,1200,1700,2100 PO ; Start 06/24/21 at 17:00 Insulin Glargine (Lantus Syringe) 14 unit QHS SQ ; Start 06/24/21 at 21:00 Pioglitazone HCl (Actos) 30 mg DAILY PO ; Start 06/24/21 at 12:00 Non-Formulary Medication (Sucroferric Oxyhydroxide (Velphoro)) 1 tab TID PO ; Start 06/24/21 at 14:00; Status UNV Sodium Chloride 1,000 ml @ 1,000 mls/hr Q1H PRN IV hypotension; Start 06/24/21 at 11:45; Stop 06/24/21 at 17:44 Albumin Human 200 ml @ 200 mls/hr 1X PRN PRN IV Hypotension; Start 06/24/21 at 11:45; Stop 06/24/21 at 17:44 Sodium Chloride 1,000 ml @ 400 mls/hr Q2H30M PRN IV PATENCY; Start 06/24/21 at 11:45; Stop 06/24/21 at 23:44 Info (PHARMACY MONITORING -- do not chart) 1 each PRN DAILY PRN MC SEE COMMENTS; Start 06/24/21 at 11:45; Status UNV Info (PHARMACY MONITORING -- do not chart) 1 each PRN DAILY PRN MC SEE COMMENTS; Start 06/24/21 at 11:45 Diltiazem HCl (Cardizem 24hr Cd) 360 mg DAILY PO ; Start 06/24/21 at 12:00 Active Scripts Active Reported Velphoro (Sucroferric Oxyhydroxide) 500 Mg Tab.chew 1 Tab PO TID 30 Days Xarelto (Rivaroxaban) 15 Mg Tablet 1 Tab PO DAILY 30 Days Colace (Docusate Sodium) 100 Mg Capsule 100 Mg PO PRN DAILY PRN Calcium Acetate 667 Mg Tablet 1 Tab PO QIDPMEDS 30 Days Cardizem Cd (Diltiazem Hcl) 360 Mg Cap.er.24h 300 Mg PO DAILY Cetirizine Hcl 10 Mg Tablet 1 Tab PO DAILY Lantus Solostar (Insulin Glargine,Hum.rec.anlog) 100 Unit/1 Ml Insuln.pen 14 Unit SQ QHS Lipitor (Atorvastatin Calcium) 40 Mg Tablet 1 Tab PO DAILY08 Actos (Pioglitazone Hcl) 30 Mg Tablet 1 Tab PO DAILY Allergies Allergies: Coded Allergies: No Known Drug Allergies (Unverified , 05/05/21) ROS Respiratory: YES: SOB with excertion Gastrointestinal: Yes Abdominal Pain Physical Exam General: mild distress HEENT: Atraumatic Lungs: Clear to auscultation Heart: Other (Irregularly irregular) Abdomen: Other (No localized tenderness) Vitals VITALS Vital Signs Date Time Temp Pulse Resp B/P (MAP) Pulse Ox O2 Delivery O2 Flow Rate FiO2 06/24/21 10:48 98.9 107 20 137/91 (106) 90 Nasal Cannula 98.9 06/24/21 08:00 3.0 Labs Labs Laboratory Tests Test 06/24/21 01:00 06/24/21 01:45 06/24/21 04:59 06/24/21 05:15 White Blood Count 8.2 x10^3/uL (4.0-11.0) Red Blood Count 5.17 x10^6/uL (4.30-5.70) Hemoglobin 16.2 g/dL (13.0-17.5) Hematocrit 49.1 % (39.0-53.0) Mean Corpuscular Volume 95 fL (79-100) Mean Corpuscular Hemoglobin 31 pg (25-35) Mean Corpuscular Hemoglobin Concent 33 g/dL (31-37) Red Cell Distribution Width 14.6 % (11.5-14.5) Platelet Count 172 x10^3/uL (140-400) Neutrophils (%) (Auto) 80 % (31-73) Lymphocytes (%) (Auto) 13 % (24-48) Monocytes (%) (Auto) 6 % (0-9) Eosinophils (%) (Auto) 1 % (0-3) Basophils (%) (Auto) 0 % (0-3) Neutrophils # (Auto) 6.5 x10^3/uL (1.8-7.7) Lymphocytes # (Auto) 1.0 x10^3/uL (1.0-4.8) Monocytes # (Auto) 0.5 x10^3/uL (0.0-1.1) Eosinophils # (Auto) 0.1 x10^3/uL (0.0-0.7) Basophils # (Auto) 0.0 x10^3/uL (0.0-0.2) Sodium Level 133 mmol/L (136-145) Potassium Level 6.1 mmol/L (3.5-5.1) Chloride Level 98 mmol/L (98-107) Carbon Dioxide Level 24 mmol/L (21-32) Anion Gap 11 (6-14) Blood Urea Nitrogen 67 mg/dL (8-26) Creatinine 9.9 mg/dL (0.7-1.3) Estimated GFR (Cockcroft-Gault) 5.4 BUN/Creatinine Ratio 7 (6-20) Glucose Level 159 mg/dL (70-99) Lactic Acid Level 1.1 mmol/L (0.4-2.0) Calcium Level 8.0 mg/dL (8.5-10.1) Total Bilirubin 0.4 mg/dL (0.2-1.0) Aspartate Amino Transf (AST/SGOT) 18 U/L (15-37) Alanine Aminotransferase (ALT/SGPT) 20 U/L (16-63) Alkaline Phosphatase 122 U/L (46-116) Troponin I High Sensitivity 16 ng/L (4-75) Total Protein 7.0 g/dL (6.4-8.2) Albumin 3.2 g/dL (3.4-5.0) Albumin/Globulin Ratio 0.8 (1.0-1.7) Lipase 182 U/L (73-393) Hepatitis B Surface Antigen Nonreactive (Nonreactive) Glucose (Fingerstick) 214 mg/dL (70-99) SARS-CoV-2 RNA (FELI) Negative (Negative) SARS-CoV-2 Antigen (Rapid) Negative (NEGATIVE) Test 06/24/21 09:05 06/24/21 11:44 Glucose (Fingerstick) 132 mg/dL (70-99) 98 mg/dL (70-99) Laboratory Tests Test 06/24/21 01:00 06/24/21 01:45 06/24/21 04:59 06/24/21 05:15 White Blood Count 8.2 x10^3/uL (4.0-11.0) Red Blood Count 5.17 x10^6/uL (4.30-5.70) Hemoglobin 16.2 g/dL (13.0-17.5) Hematocrit 49.1 % (39.0-53.0) Mean Corpuscular Volume 95 fL (79-100) Mean Corpuscular Hemoglobin 31 pg (25-35) Mean Corpuscular Hemoglobin Concent 33 g/dL (31-37) Red Cell Distribution Width 14.6 % (11.5-14.5) Platelet Count 172 x10^3/uL (140-400) Neutrophils (%) (Auto) 80 % (31-73) Lymphocytes (%) (Auto) 13 % (24-48) Monocytes (%) (Auto) 6 % (0-9) Eosinophils (%) (Auto) 1 % (0-3) Basophils (%) (Auto) 0 % (0-3) Neutrophils # (Auto) 6.5 x10^3/uL (1.8-7.7) Lymphocytes # (Auto) 1.0 x10^3/uL (1.0-4.8) Monocytes # (Auto) 0.5 x10^3/uL (0.0-1.1) Eosinophils # (Auto) 0.1 x10^3/uL (0.0-0.7) Basophils # (Auto) 0.0 x10^3/uL (0.0-0.2) Sodium Level 133 mmol/L (136-145) Potassium Level 6.1 mmol/L (3.5-5.1) Chloride Level 98 mmol/L (98-107) Carbon Dioxide Level 24 mmol/L (21-32) Anion Gap 11 (6-14) Blood Urea Nitrogen 67 mg/dL (8-26) Creatinine 9.9 mg/dL (0.7-1.3) Estimated GFR (Cockcroft-Gault) 5.4 BUN/Creatinine Ratio 7 (6-20) Glucose Level 159 mg/dL (70-99) Lactic Acid Level 1.1 mmol/L (0.4-2.0) Calcium Level 8.0 mg/dL (8.5-10.1) Total Bilirubin 0.4 mg/dL (0.2-1.0) Aspartate Amino Transf (AST/SGOT) 18 U/L (15-37) Alanine Aminotransferase (ALT/SGPT) 20 U/L (16-63) Alkaline Phosphatase 122 U/L (46-116) Troponin I High Sensitivity 16 ng/L (4-75) Total Protein 7.0 g/dL (6.4-8.2) Albumin 3.2 g/dL (3.4-5.0) Albumin/Globulin Ratio 0.8 (1.0-1.7) Lipase 182 U/L (73-393) Hepatitis B Surface Antigen Nonreactive (Nonreactive) Glucose (Fingerstick) 214 mg/dL (70-99) SARS-CoV-2 RNA (FELI) Negative (Negative) SARS-CoV-2 Antigen (Rapid) Negative (NEGATIVE) Test 06/24/21 09:05 06/24/21 11:44 Glucose (Fingerstick) 132 mg/dL (70-99) 98 mg/dL (70-99) Images Images CT scan of the chest, abdomen and pelvis shows no acute pathology. Assessment/Plan Assessment/Plan 1. Abdominal pain. Improved. CT scan as above shows no acute processes. Work-up is continuing. 2. Chronic kidney failure. Elevated potassium at 6.1 with a creatinine of 9.9. Hemodialysis as per the renal service. 3. Paroxysmal atrial fibrillation. Patient is on Xarelto and Cardizem 300 mg a day. His rate is elevated at 128. Will resume oral medications as tolerated by the patient. If needed will use IV beta-blockers or IV digoxin for improved rate control over the short-term. 4. Hypertension. Continue present medications and will adjust as needed. 5. Hyperlipidemia. Recheck morning lab. 6. Diabetes mellitus. As per the primary service. LILLIAN MOYER MD Jun 24, 2021 14:47
[2021-06-24] MEDS: PIOGLITAZONE 15 MG TABLET. PO SCH (15:47)
[2021-06-24] MEDS: CALCIUM ACETATE 667 MG CAPSULE PO SCH ×2 (15:47→21:04)
--- NOTE | 2021-06-24 18:01 | PDOC2 ---
CONSULT Date of Consult Date of Consult DATE: 06/24/21 TIME: 17:56 Reason for Consult Reason for Consult: Periumbilical abdominal pain History of Present Illness Reason for Visit: This is a 61-year-old gentleman, end-stage renal disease on dialysis but denies any chronic GI complaints. In particular he has no heartburn, dysphagia, abdominal pain, change in bowel pattern or bleeding. He does have a history of intermittent low back pain which has recurred the last few days. Previously it was felt to be secondary to a urinary infection. He presents now with acute onset of atrial fibrillation with rapid ventricular response and new onset of periumbilical abdominal pain. This occurred yesterday starting acutely but was not associated with lactic acidosis or significant lab abnormalities and his CT angiogram of the chest and abdomen was unrevealing for acute source for his pain. It did reveal chronic atherosclerotic disease but no inflammation, vascular compromise etc. He was seen and treated by cardiology for his rapid response and it was since that time that he has begun to have resolution of his periumbilical abdominal pain. He does however continue to have the low back pain. He denies nausea, vomiting, hematemesis, melena, hematochezia, constipation or diarrhea. He describes a regular bowel movement yesterday. Past Medical History Cardiovascular: AFIB, CHF, HTN, Hyperlipidemia Pulmonary: Other CENTRAL NERVOUS SYSTEM: Periperal neuropathy GI: No pertinent hx Heme/Onc: No pertinent hx Hepatobiliary: No pertinent hx Psych: No pertinent hx Renal/: Chronic renal failure Endocrine: Diabetes, Hyperparathyroidism Past Surgical History Past Surgical History: Appendectomy, Tonsillectomy Family History Family History: Hypertension Social History 1 pack per day ALCOHOL: none Drugs: None Lives: with Family Current Problem List Problem List Problems Medical Problems: (1) Acute hyperkalemia Status: Acute (2) Atrial fibrillation with rapid ventricular response Status: Acute (3) Periumbilical abdominal pain Status: Acute Current Medications Current Medications Current Medications Morphine Sulfate (Morphine Sulfate) 4 mg 1X ONCE IVP Last administered on 06/24/21at 02:01; Start 06/24/21 at 02:00; Stop 06/24/21 at 02:01; Status DC Sodium Chloride 250 ml @ 500 mls/hr 1X ONCE IV Last administered on 06/24/21at 01:26; Start 06/24/21 at 02:00; Stop 06/24/21 at 02:29; Status DC Ondansetron HCl (Zofran) 4 mg 1X ONCE IVP Last administered on 06/24/21at 01:28; Start 06/24/21 at 02:00; Stop 06/24/21 at 02:01; Status DC Piperacillin Sod/ Tazobactam Sod 2.25 gm/Sodium Chloride 50 ml @ 100 mls/hr 1X ONCE IV Last administered on 06/24/21at 02:05; Start 06/24/21 at 02:00; Stop 06/24/21 at 02:29; Status DC Iohexol (Omnipaque 350 Mg/ml) 100 ml 1X ONCE IV Last administered on 06/24/21at 01:46; Start 06/24/21 at 02:00; Stop 06/24/21 at 02:01; Status DC Info (CONTRAST GIVEN -- Rx MONITORING) 1 each PRN DAILY PRN MC SEE COMMENTS; Start 06/24/21 at 01:45; Stop 06/26/21 at 01:44 Diltiazem HCl (Cardizem Iv Push) 15 mg 1X ONCE IVP Last administered on 06/24/21at 04:02; Start 06/24/21 at 04:30; Stop 06/24/21 at 04:31; Status DC Calcium Gluconate (Calcium Gluconate) 1,000 mg 1X ONCE IVP Last administered on 06/24/21at 04:33; Start 06/24/21 at 04:30; Stop 06/24/21 at 04:31; Status DC Calcium Gluconate (Calcium Gluconate) 1,000 mg 1X ONCE IVP ; Start 06/24/21 at 05:00; Stop 06/24/21 at 05:01; Status DC Dextrose (Dextrose 50%-Water Syringe) 25 gm 1X ONCE IV Last administered on 06/24/21at 04:44; Start 06/24/21 at 04:30; Stop 06/24/21 at 04:31; Status DC Dextrose (Dextrose 50%-Water Syringe) 25 gm 1X ONCE IV ; Start 06/24/21 at 04:30; Stop 06/24/21 at 04:31; Status DC Insulin Human Regular (HumuLIN R VIAL) 10 unit 1X ONCE IV Last administered on 06/24/21at 04:42; Start 06/24/21 at 04:30; Stop 06/24/21 at 04:31; Status DC Ondansetron HCl (Zofran) 4 mg PRN Q8HRS PRN IVP NAUSEA/VOMITING 1ST CHOICE; Start 06/24/21 at 04:45; Stop 06/25/21 at 04:44 Morphine Sulfate (Morphine Sulfate) 2 mg PRN Q3HRS PRN IVP SEVERE PAIN 7-10 Last administered on 06/24/21at 05:23; Start 06/24/21 at 04:45; Stop 06/25/21 at 04:44 Diltiazem HCl (Cardizem Iv Push) 10 mg 1X ONCE IVP Last administered on 06/24/21at 05:26; Start 06/24/21 at 05:30; Stop 06/24/21 at 05:31; Status DC Rivaroxaban (Xarelto) 15 mg DAILYWSUP PO ; Start 06/25/21 at 09:00 Calcium Acetate (Phoslo) 667 mg QID@0800,1200,1700,2100 PO Last administered on 06/24/21at 15:47; Start 06/24/21 at 17:00 Insulin Glargine (Lantus Syringe) 14 unit QHS SQ ; Start 06/24/21 at 21:00 Pioglitazone HCl (Actos) 30 mg DAILY PO Last administered on 06/24/21at 15:47; Start 06/24/21 at 12:00 Non-Formulary Medication (Sucroferric Oxyhydroxide (Velphoro)) 1 tab TID PO ; Start 06/24/21 at 14:00; Status UNV Sodium Chloride 1,000 ml @ 1,000 mls/hr Q1H PRN IV hypotension; Start 06/24/21 at 11:45; Stop 06/24/21 at 17:44; Status DC Albumin Human 200 ml @ 200 mls/hr 1X PRN PRN IV Hypotension; Start 06/24/21 at 11:45; Stop 06/24/21 at 17:44; Status DC Sodium Chloride 1,000 ml @ 400 mls/hr Q2H30M PRN IV PATENCY; Start 06/24/21 at 11:45; Stop 06/24/21 at 23:44 Info (PHARMACY MONITORING -- do not chart) 1 each PRN DAILY PRN MC SEE COMMENTS; Start 06/24/21 at 11:45; Status UNV Info (PHARMACY MONITORING -- do not chart) 1 each PRN DAILY PRN MC SEE COMMENTS; Start 06/24/21 at 11:45 Diltiazem HCl (Cardizem 24hr Cd) 360 mg DAILY PO Last administered on 06/24/21at 15:47; Start 06/24/21 at 12:00 Active Scripts Active Reported Velphoro (Sucroferric Oxyhydroxide) 500 Mg Tab.chew 1 Tab PO TID 30 Days Xarelto (Rivaroxaban) 15 Mg Tablet 1 Tab PO DAILY 30 Days Colace (Docusate Sodium) 100 Mg Capsule 100 Mg PO PRN DAILY PRN Calcium Acetate 667 Mg Tablet 1 Tab PO QIDPMEDS 30 Days Cardizem Cd (Diltiazem Hcl) 360 Mg Cap.er.24h 300 Mg PO DAILY Cetirizine Hcl 10 Mg Tablet 1 Tab PO DAILY Lantus Solostar (Insulin Glargine,Hum.rec.anlog) 100 Unit/1 Ml Insuln.pen 14 Unit SQ QHS Lipitor (Atorvastatin Calcium) 40 Mg Tablet 1 Tab PO DAILY08 Actos (Pioglitazone Hcl) 30 Mg Tablet 1 Tab PO DAILY Allergies Allergies: Coded Allergies: No Known Drug Allergies (Unverified , 05/05/21) Physical Exam General: Alert, Oriented X3, Cooperative HEENT: Atraumatic Lungs: Clear to auscultation Heart: Normal S1, Normal S2, Other (Irregular rhythm) Abdomen: Normal bowel sounds, Soft, No tenderness, No hepatosplenomegaly, No masses Skin: No rashes Neuro: Normal speech Psych/Mental Status: Mental status NL Vitals VITALS Vital Signs Date Time Temp Pulse Resp B/P (MAP) Pulse Ox O2 Delivery O2 Flow Rate FiO2 06/24/21 15:47 107 137/91 06/24/21 10:48 98.9 20 90 Nasal Cannula 98.9 06/24/21 08:00 3.0 Labs Labs Laboratory Tests Test 06/24/21 01:00 06/24/21 01:45 06/24/21 04:59 06/24/21 05:15 White Blood Count 8.2 x10^3/uL (4.0-11.0) Red Blood Count 5.17 x10^6/uL (4.30-5.70) Hemoglobin 16.2 g/dL (13.0-17.5) Hematocrit 49.1 % (39.0-53.0) Mean Corpuscular Volume 95 fL (79-100) Mean Corpuscular Hemoglobin 31 pg (25-35) Mean Corpuscular Hemoglobin Concent 33 g/dL (31-37) Red Cell Distribution Width 14.6 % (11.5-14.5) Platelet Count 172 x10^3/uL (140-400) Neutrophils (%) (Auto) 80 % (31-73) Lymphocytes (%) (Auto) 13 % (24-48) Monocytes (%) (Auto) 6 % (0-9) Eosinophils (%) (Auto) 1 % (0-3) Basophils (%) (Auto) 0 % (0-3) Neutrophils # (Auto) 6.5 x10^3/uL (1.8-7.7) Lymphocytes # (Auto) 1.0 x10^3/uL (1.0-4.8) Monocytes # (Auto) 0.5 x10^3/uL (0.0-1.1) Eosinophils # (Auto) 0.1 x10^3/uL (0.0-0.7) Basophils # (Auto) 0.0 x10^3/uL (0.0-0.2) Sodium Level 133 mmol/L (136-145) Potassium Level 6.1 mmol/L (3.5-5.1) Chloride Level 98 mmol/L (98-107) Carbon Dioxide Level 24 mmol/L (21-32) Anion Gap 11 (6-14) Blood Urea Nitrogen 67 mg/dL (8-26) Creatinine 9.9 mg/dL (0.7-1.3) Estimated GFR (Cockcroft-Gault) 5.4 BUN/Creatinine Ratio 7 (6-20) Glucose Level 159 mg/dL (70-99) Lactic Acid Level 1.1 mmol/L (0.4-2.0) Calcium Level 8.0 mg/dL (8.5-10.1) Total Bilirubin 0.4 mg/dL (0.2-1.0) Aspartate Amino Transf (AST/SGOT) 18 U/L (15-37) Alanine Aminotransferase (ALT/SGPT) 20 U/L (16-63) Alkaline Phosphatase 122 U/L (46-116) Troponin I High Sensitivity 16 ng/L (4-75) Total Protein 7.0 g/dL (6.4-8.2) Albumin 3.2 g/dL (3.4-5.0) Albumin/Globulin Ratio 0.8 (1.0-1.7) Lipase 182 U/L (73-393) Hepatitis B Surface Antigen Nonreactive (Nonreactive) Glucose (Fingerstick) 214 mg/dL (70-99) SARS-CoV-2 RNA (FELI) Negative (Negative) SARS-CoV-2 Antigen (Rapid) Negative (NEGATIVE) Test 06/24/21 09:05 06/24/21 11:44 06/24/21 17:21 Glucose (Fingerstick) 132 mg/dL (70-99) 98 mg/dL (70-99) 142 mg/dL (70-99) Laboratory Tests Test 06/24/21 01:00 06/24/21 01:45 06/24/21 04:59 06/24/21 05:15 White Blood Count 8.2 x10^3/uL (4.0-11.0) Red Blood Count 5.17 x10^6/uL (4.30-5.70) Hemoglobin 16.2 g/dL (13.0-17.5) Hematocrit 49.1 % (39.0-53.0) Mean Corpuscular Volume 95 fL (79-100) Mean Corpuscular Hemoglobin 31 pg (25-35) Mean Corpuscular Hemoglobin Concent 33 g/dL (31-37) Red Cell Distribution Width 14.6 % (11.5-14.5) Platelet Count 172 x10^3/uL (140-400) Neutrophils (%) (Auto) 80 % (31-73) Lymphocytes (%) (Auto) 13 % (24-48) Monocytes (%) (Auto) 6 % (0-9) Eosinophils (%) (Auto) 1 % (0-3) Basophils (%) (Auto) 0 % (0-3) Neutrophils # (Auto) 6.5 x10^3/uL (1.8-7.7) Lymphocytes # (Auto) 1.0 x10^3/uL (1.0-4.8) Monocytes # (Auto) 0.5 x10^3/uL (0.0-1.1) Eosinophils # (Auto) 0.1 x10^3/uL (0.0-0.7) Basophils # (Auto) 0.0 x10^3/uL (0.0-0.2) Sodium Level 133 mmol/L (136-145) Potassium Level 6.1 mmol/L (3.5-5.1) Chloride Level 98 mmol/L (98-107) Carbon Dioxide Level 24 mmol/L (21-32) Anion Gap 11 (6-14) Blood Urea Nitrogen 67 mg/dL (8-26) Creatinine 9.9 mg/dL (0.7-1.3) Estimated GFR (Cockcroft-Gault) 5.4 BUN/Creatinine Ratio 7 (6-20) Glucose Level 159 mg/dL (70-99) Lactic Acid Level 1.1 mmol/L (0.4-2.0) Calcium Level 8.0 mg/dL (8.5-10.1) Total Bilirubin 0.4 mg/dL (0.2-1.0) Aspartate Amino Transf (AST/SGOT) 18 U/L (15-37) Alanine Aminotransferase (ALT/SGPT) 20 U/L (16-63) Alkaline Phosphatase 122 U/L (46-116) Troponin I High Sensitivity 16 ng/L (4-75) Total Protein 7.0 g/dL (6.4-8.2) Albumin 3.2 g/dL (3.4-5.0) Albumin/Globulin Ratio 0.8 (1.0-1.7) Lipase 182 U/L (73-393) Hepatitis B Surface Antigen Nonreactive (Nonreactive) Glucose (Fingerstick) 214 mg/dL (70-99) SARS-CoV-2 RNA (FELI) Negative (Negative) SARS-CoV-2 Antigen (Rapid) Negative (NEGATIVE) Test 06/24/21 09:05 06/24/21 11:44 06/24/21 17:21 Glucose (Fingerstick) 132 mg/dL (70-99) 98 mg/dL (70-99) 142 mg/dL (70-99) Assessment/Plan Assessment/Plan Acute onset periumbilical abdominal pain yesterday. No prior history of abdominal symptoms. It seemed temporally correlated with rapid ventricular response which may suggest minor intestinal ischemia based on his underlying atherosclerotic disease and an inadequate blood flow to the intestine. This is purely supposition but it fits with his clinical history and fortunately his symptoms have completely resolved. His imaging studies have been unrevealing as well for an acute cause. Low back pain. This has been proposed in the past to be related to urinary infections but presently it is unclear why it was present now. His imaging studies are unrevealing. Plan: Continue close monitoring. Since he is tolerating diet and has a normal bowel pattern, we will just follow his clinical symptoms and laboratories. No further urgent endoscopic evaluation is recommended at this time unless his symptoms recur. MELISA BROUSSARD MD Jun 24, 2021 18:01
[2021-06-24] MEDS ORDERED: ACETAMINOPHEN 325 MG TABLET. PO PRN (18:15)
--- NOTE | 2021-06-24 19:09 | CONS ---
DATE OF CONSULTATION: 06/24/2021 NEPHROLOGY CONSULTATION REQUESTING PHYSICIAN: Rusty Seymour MD REASON FOR CONSULTATION: Renal failure. HISTORY OF PRESENT ILLNESS: This is a 61-year-old gentleman who was admitted to the Emergency Department with paraumbilical abdominal discomfort. The patient also has known history of end-stage renal disease, which is hemodialysis dependent. In this setting, he will need ongoing dialysis and management of comorbidities associated with same. PAST MEDICAL HISTORY: Hypertension, end-stage renal disease, hemodialysis dependent on Saturday, , Saturday, anemia of chronic kidney disease, secondary hyperparathyroidism of renal disease, hyperlipidemia, paroxysmal atrial fibrillation, on oral anticoagulation, diabetes mellitus, obesity. PAST SURGICAL HISTORY: Vascular access placement of left upper extremity in 07/2018, appendectomy. ALLERGIES: None. MEDICATIONS: Reviewed per medication list. FAMILY HISTORY: Noncontributory. SOCIAL HISTORY: The patient resides with family. He is heavy tobacco smoker. REVIEW OF SYSTEMS: Other than his paraumbilical abdominal discomfort, remained in need for dialysis and hyperkalemia. Remainder of review of systems is unremarkable. PHYSICAL EXAMINATION: GENERAL APPEARANCE: The patient is awake, conversant. HEENT: Clear. LUNGS: Clear. CARDIAC: Without S3 or rub. ABDOMEN: Obese, bowel sounds present. EXTREMITIES: Without edema. NEUROPSYCHIATRIC: Follows appropriately, fair attention to details. LABORATORY DATA: White count 8.2, hemoglobin 16.2 Hematocrit 49.1, platelets are 172. Sodium 133, potassium 6.1, chloride 98, CO2 of 24, BUN 67, creatinine 9.9, GFR 5.4, glucose 159. Total bilirubin 0.4, AST 18, ALT 20, alkaline phosphatase 122, total protein 7, albumin 3.2, lipase 182. COVID-19 negative. IMPRESSION: 1. End-stage renal disease secondary to diabetic nephropathy and hypertensive nephrosclerosis -- hemodialysis dependent on Saturday, , Saturday. 2. Anemia of chronic kidney disease. 3. Paraumbilical discomfort. RECOMMENDATIONS: 1. Ongoing dialysis on Saturday, and Saturday with dialysis today, which will assist in management of hyperkalemia. 2. Further evaluation of abdominal discomfort is pending. We will follow. JANEY DR: Samuel TID: [id number]
[2021-06-24 19:50] VITALS: BP 121/64
[2021-06-24] MEDS ORDERED: INSULIN GLARGINE SYRINGE. SQ SCH (21:00)
[2021-06-24 23:35] VITALS: BP 121/59
[2021-06-25 03:30] VITALS: BP 142/65
[2021-06-25 04:31] LABS: BASO % 1 % (0-3); EOS # 0.1 x10^3/uL (0.0-0.7); EOS % 3 % (0-3); HEMATOCRIT 46.3 % (39.0-53.0); HEMOGLOBIN 15.1 g/dL (13.0-17.5); LYMPH % 21 % (24-48); MEAN CORPUSCULAR HEMOGLOBIN 31 pg (25-35); MEAN CORPUSCULAR HGB CONC 33 g/dL (31-37); MEAN CORPUSCULAR VOLUME 95 fL (79-100); MONO # 0.6 x10^3/uL (0.0-1.1); MONO % 14 % (0-9); NEUT # 2.8 x10^3/uL (1.8-7.7); NEUT % 62 % (31-73); PLATELET COUNT 134 x10^3/uL (140-400); RED BLOOD COUNT 4.87 x10^6/uL (4.30-5.70); RED CELL DISTRIBUTION WIDTH 15.1 % (11.5-14.5); WHITE BLOOD COUNT 4.6 x10^3/uL (4.0-11.0)
--- NOTE | 2021-06-25 04:48 | HP ---
DATE OF SERVICE: 06/24/2021 ADMIT DATE: 06/24/2021 CHIEF COMPLAINT: Abdominal pain. HISTORY OF PRESENT ILLNESS: A 61-year-old male with history of end-stage renal disease, on dialysis as well as mild diabetes and atrial fibrillation, had fairly sudden onset of right lower quadrant pain ____ prior to admission. CT scan was unremarkable. Potassium was high at 6.1 and he had a fairly high heart rate consistent with atrial fibrillation and RVR. He was given some IV diltiazem and his heart rate is down lower. He still has some right lower quadrant abdominal pain that seems to be less after having a large bowel movement this morning. PAST MEDICAL HISTORY: Medications: Multiple meds listed in the chart. ALLERGIES: No allergies. He takes dialysis per Dr. Tobar. SOCIAL HISTORY: , nonsmoker, nondrinker. Sees Dr. Welch. FAMILY HISTORY: Unremarkable. REVIEW OF SYSTEMS: Unremarkable. OBJECTIVE: ENT: All within normal limits. NECK: No masses, nodes or bruits. LUNGS: Clear. No tachypnea. CARDIOVASCULAR: Irregular rate consistent with atrial fibrillation, rate 100-110. ABDOMEN: Obese, soft, benign and nontender. No masses, megaly or nodes. No guarding is noted. EXTREMITIES: Good pedal and radial pulses. No edema is noted. NEUROLOGIC: Physiologic and nonfocal. ASSESSMENT: 1. Right lower quadrant abdominal pain, etiology is unclear. It appears to be nonsurgical at this time. He is stable. 2. End-stage renal disease with hyperkalemia and atrial fibrillation. 3. RVR. PLAN: Resume home meds and dialyze ____ potassium today and follow up for his abdominal pain. JANAY/JG DR: VALERIA/aureliano TID: [id number]
[2021-06-25 05:31] LABS: ALBUMIN 2.9 g/dL (3.4-5.0); ALBUMIN/GLOBULIN RATIO 0.8 (1.0-1.7); CREATININE 8.3 mg/dL (0.7-1.3); GFR 6.6; TOTAL BILIRUBIN 0.4 mg/dL (0.2-1.0); TOTAL PROTEIN 6.7 g/dL (6.4-8.2)
[2021-06-25 05:42] LABS: POTASSIUM 5.4 mmol/L (3.5-5.1)
[2021-06-25] MEDS ORDERED: RIVAROXABAN 15 MG TABLET. PO SCH (09:00)
[2021-06-25] MEDS: SUCROFERRIC OXYHYDROXIDE PO SCH (09:00)
[2021-06-25] MEDS: CALCIUM ACETATE 667 MG CAPSULE PO SCH ×2 (09:01→11:45)
[2021-06-25 09:02] VITALS: BP 142/65
[2021-06-25] MEDS: PIOGLITAZONE 15 MG TABLET. PO SCH (09:02)
--- NOTE | 2021-06-25 09:58 | PDOC ---
Provider Note Date of Service: DATE: 06/25/21 TIME: 09:56 Provider Note [id number] Justifications for Admission Other Justification ALICIA MALHOTRA MD Jun 25, 2021 09:58
--- NOTE | 2021-06-25 13:21 | NUR ---
Discharge Note: MIRACLE MASON [address] [place] [address] Discharge instructions and discharge home medications reviewed with Patient and a copy given. All questions have been answered and understanding verbalized. The following instructions and handouts were given: Diet, activity, medication list and follow up instructions provided to patient. Discontinued lines and drains: Peripheral IV discontinued and catheter intact. Patient discharged to Home or Self Care with Family Member via Wheelchair
--- NOTE | 2021-06-25 14:20 | PDOC ---
PROGRESS NOTES Date of Service DATE: 06/25/21 TIME: 14:17 Subjective Subjective Patient seen and examined Objective Objective Vital Signs Date Time Temp Pulse Resp B/P (MAP) Pulse Ox O2 Delivery O2 Flow Rate FiO2 06/25/21 09:02 107 142/65 06/25/21 08:00 Room Air 06/25/21 03:30 98.0 20 98 2.0 98.0 Intake and Output 06/25/21 07:00 Intake Total 530 ml Output Total 1700 ml Balance -1170 ml Intake Oral 530 ml Output Urine Total 1700 ml Physical Exam Abdomen: Normal bowel sounds Heart: Other (Irregular rhythm) General: No acute distress Lungs: Clear to auscultation Assessment Assessment Problems Medical Problems: (1) Acute hyperkalemia Status: Acute (2) Atrial fibrillation with rapid ventricular response Status: Acute (3) Periumbilical abdominal pain Status: Acute 1. Abdominal pain. Resolved. CT scan as above shows no acute processes. 2. Chronic kidney failure. Morning potassium of 5.4 compared to 6.1 yesterday. Creatinine of 8.3. Hemodialysis as per the renal service. 3. Paroxysmal atrial fibrillation. Patient is on Xarelto and Cardizem 300 mg a day. Morning rate improved to approximately 98. We will continue present medical treatment and anticoagulation. 4. Hypertension. Continue present medications. 5. Hyperlipidemia. Continue medical treatment. 6. Diabetes mellitus. As per the primary service. Comment Review of Relevant I have reviewed the following items rekha (where applicable) has been applied. Labs Laboratory Tests Test 06/24/21 01:00 06/24/21 01:45 06/24/21 04:59 06/24/21 05:15 White Blood Count 8.2 x10^3/uL (4.0-11.0) Red Blood Count 5.17 x10^6/uL (4.30-5.70) Hemoglobin 16.2 g/dL (13.0-17.5) Hematocrit 49.1 % (39.0-53.0) Mean Corpuscular Volume 95 fL (79-100) Mean Corpuscular Hemoglobin 31 pg (25-35) Mean Corpuscular Hemoglobin Concent 33 g/dL (31-37) Red Cell Distribution Width 14.6 % (11.5-14.5) Platelet Count 172 x10^3/uL (140-400) Neutrophils (%) (Auto) 80 % (31-73) Lymphocytes (%) (Auto) 13 % (24-48) Monocytes (%) (Auto) 6 % (0-9) Eosinophils (%) (Auto) 1 % (0-3) Basophils (%) (Auto) 0 % (0-3) Neutrophils # (Auto) 6.5 x10^3/uL (1.8-7.7) Lymphocytes # (Auto) 1.0 x10^3/uL (1.0-4.8) Monocytes # (Auto) 0.5 x10^3/uL (0.0-1.1) Eosinophils # (Auto) 0.1 x10^3/uL (0.0-0.7) Basophils # (Auto) 0.0 x10^3/uL (0.0-0.2) Sodium Level 133 mmol/L (136-145) Potassium Level 6.1 mmol/L (3.5-5.1) Chloride Level 98 mmol/L (98-107) Carbon Dioxide Level 24 mmol/L (21-32) Anion Gap 11 (6-14) Blood Urea Nitrogen 67 mg/dL (8-26) Creatinine 9.9 mg/dL (0.7-1.3) Estimated GFR (Cockcroft-Gault) 5.4 BUN/Creatinine Ratio 7 (6-20) Glucose Level 159 mg/dL (70-99) Lactic Acid Level 1.1 mmol/L (0.4-2.0) Calcium Level 8.0 mg/dL (8.5-10.1) Total Bilirubin 0.4 mg/dL (0.2-1.0) Aspartate Amino Transf (AST/SGOT) 18 U/L (15-37) Alanine Aminotransferase (ALT/SGPT) 20 U/L (16-63) Alkaline Phosphatase 122 U/L (46-116) Troponin I High Sensitivity 16 ng/L (4-75) Total Protein 7.0 g/dL (6.4-8.2) Albumin 3.2 g/dL (3.4-5.0) Albumin/Globulin Ratio 0.8 (1.0-1.7) Lipase 182 U/L (73-393) Hepatitis B Surface Antigen Nonreactive (Nonreactive) Glucose (Fingerstick) 214 mg/dL (70-99) SARS-CoV-2 RNA (FELI) Negative (Negative) SARS-CoV-2 Antigen (Rapid) Negative (NEGATIVE) Test 06/24/21 09:05 06/24/21 11:44 06/24/21 17:21 06/24/21 21:00 Glucose (Fingerstick) 132 mg/dL (70-99) 98 mg/dL (70-99) 142 mg/dL (70-99) 183 mg/dL (70-99) Test 06/25/21 04:00 06/25/21 07:58 06/25/21 10:58 White Blood Count 4.6 x10^3/uL (4.0-11.0) Red Blood Count 4.87 x10^6/uL (4.30-5.70) Hemoglobin 15.1 g/dL (13.0-17.5) Hematocrit 46.3 % (39.0-53.0) Mean Corpuscular Volume 95 fL (79-100) Mean Corpuscular Hemoglobin 31 pg (25-35) Mean Corpuscular Hemoglobin Concent 33 g/dL (31-37) Red Cell Distribution Width 15.1 % (11.5-14.5) Platelet Count 134 x10^3/uL (140-400) Neutrophils (%) (Auto) 62 % (31-73) Lymphocytes (%) (Auto) 21 % (24-48) Monocytes (%) (Auto) 14 % (0-9) Eosinophils (%) (Auto) 3 % (0-3) Basophils (%) (Auto) 1 % (0-3) Neutrophils # (Auto) 2.8 x10^3/uL (1.8-7.7) Lymphocytes # (Auto) 1.0 x10^3/uL (1.0-4.8) Monocytes # (Auto) 0.6 x10^3/uL (0.0-1.1) Eosinophils # (Auto) 0.1 x10^3/uL (0.0-0.7) Basophils # (Auto) 0.0 x10^3/uL (0.0-0.2) Sodium Level 137 mmol/L (136-145) Potassium Level 5.4 mmol/L (3.5-5.1) Chloride Level 98 mmol/L (98-107) Carbon Dioxide Level 29 mmol/L (21-32) Anion Gap 10 (6-14) Blood Urea Nitrogen 44 mg/dL (8-26) Creatinine 8.3 mg/dL (0.7-1.3) Estimated GFR (Cockcroft-Gault) 6.6 BUN/Creatinine Ratio 5 (6-20) Glucose Level 74 mg/dL (70-99) Calcium Level 8.0 mg/dL (8.5-10.1) Total Bilirubin 0.4 mg/dL (0.2-1.0) Aspartate Amino Transf (AST/SGOT) 15 U/L (15-37) Alanine Aminotransferase (ALT/SGPT) 19 U/L (16-63) Alkaline Phosphatase 117 U/L (46-116) Total Protein 6.7 g/dL (6.4-8.2) Albumin 2.9 g/dL (3.4-5.0) Albumin/Globulin Ratio 0.8 (1.0-1.7) Glucose (Fingerstick) 102 mg/dL (70-99) 140 mg/dL (70-99) Laboratory Tests Test 06/24/21 17:21 06/24/21 21:00 06/25/21 04:00 06/25/21 07:58 Glucose (Fingerstick) 142 mg/dL (70-99) 183 mg/dL (70-99) 102 mg/dL (70-99) White Blood Count 4.6 x10^3/uL (4.0-11.0) Red Blood Count 4.87 x10^6/uL (4.30-5.70) Hemoglobin 15.1 g/dL (13.0-17.5) Hematocrit 46.3 % (39.0-53.0) Mean Corpuscular Volume 95 fL (79-100) Mean Corpuscular Hemoglobin 31 pg (25-35) Mean Corpuscular Hemoglobin Concent 33 g/dL (31-37) Red Cell Distribution Width 15.1 % (11.5-14.5) Platelet Count 134 x10^3/uL (140-400) Neutrophils (%) (Auto) 62 % (31-73) Lymphocytes (%) (Auto) 21 % (24-48) Monocytes (%) (Auto) 14 % (0-9) Eosinophils (%) (Auto) 3 % (0-3) Basophils (%) (Auto) 1 % (0-3) Neutrophils # (Auto) 2.8 x10^3/uL (1.8-7.7) Lymphocytes # (Auto) 1.0 x10^3/uL (1.0-4.8) Monocytes # (Auto) 0.6 x10^3/uL (0.0-1.1) Eosinophils # (Auto) 0.1 x10^3/uL (0.0-0.7) Basophils # (Auto) 0.0 x10^3/uL (0.0-0.2) Sodium Level 137 mmol/L (136-145) Potassium Level 5.4 mmol/L (3.5-5.1) Chloride Level 98 mmol/L (98-107) Carbon Dioxide Level 29 mmol/L (21-32) Anion Gap 10 (6-14) Blood Urea Nitrogen 44 mg/dL (8-26) Creatinine 8.3 mg/dL (0.7-1.3) Estimated GFR (Cockcroft-Gault) 6.6 BUN/Creatinine Ratio 5 (6-20) Glucose Level 74 mg/dL (70-99) Calcium Level 8.0 mg/dL (8.5-10.1) Total Bilirubin 0.4 mg/dL (0.2-1.0) Aspartate Amino Transf (AST/SGOT) 15 U/L (15-37) Alanine Aminotransferase (ALT/SGPT) 19 U/L (16-63) Alkaline Phosphatase 117 U/L (46-116) Total Protein 6.7 g/dL (6.4-8.2) Albumin 2.9 g/dL (3.4-5.0) Albumin/Globulin Ratio 0.8 (1.0-1.7) Test 06/25/21 10:58 Glucose (Fingerstick) 140 mg/dL (70-99) Microbiology 06/24/21 Blood Culture - Preliminary, Resulted NO GROWTH AFTER 1 DAY Medications Current Medications Morphine Sulfate (Morphine Sulfate) 4 mg 1X ONCE IVP Last administered on 06/24/21at 02:01; Start 06/24/21 at 02:00; Stop 06/24/21 at 02:01; Status DC Sodium Chloride 250 ml @ 500 mls/hr 1X ONCE IV Last administered on 06/24/21at 01:26; Start 06/24/21 at 02:00; Stop 06/24/21 at 02:29; Status DC Ondansetron HCl (Zofran) 4 mg 1X ONCE IVP Last administered on 06/24/21at 01:28; Start 06/24/21 at 02:00; Stop 06/24/21 at 02:01; Status DC Piperacillin Sod/ Tazobactam Sod 2.25 gm/Sodium Chloride 50 ml @ 100 mls/hr 1X ONCE IV Last administered on 06/24/21at 02:05; Start 06/24/21 at 02:00; Stop 06/24/21 at 02:29; Status DC Iohexol (Omnipaque 350 Mg/ml) 100 ml 1X ONCE IV Last administered on 06/24/21at 01:46; Start 06/24/21 at 02:00; Stop 06/24/21 at 02:01; Status DC Info (CONTRAST GIVEN -- Rx MONITORING) 1 each PRN DAILY PRN MC SEE COMMENTS; Start 06/24/21 at 01:45; Stop 06/25/21 at 13:23; Status DC Diltiazem HCl (Cardizem Iv Push) 15 mg 1X ONCE IVP Last administered on 06/24/21at 04:02; Start 06/24/21 at 04:30; Stop 06/24/21 at 04:31; Status DC Calcium Gluconate (Calcium Gluconate) 1,000 mg 1X ONCE IVP Last administered on 06/24/21at 04:33; Start 06/24/21 at 04:30; Stop 06/24/21 at 04:31; Status DC Calcium Gluconate (Calcium Gluconate) 1,000 mg 1X ONCE IVP ; Start 06/24/21 at 05:00; Stop 06/24/21 at 05:01; Status DC Dextrose (Dextrose 50%-Water Syringe) 25 gm 1X ONCE IV Last administered on 06/24/21at 04:44; Start 06/24/21 at 04:30; Stop 06/24/21 at 04:31; Status DC Dextrose (Dextrose 50%-Water Syringe) 25 gm 1X ONCE IV ; Start 06/24/21 at 04:30; Stop 06/24/21 at 04:31; Status DC Insulin Human Regular (HumuLIN R VIAL) 10 unit 1X ONCE IV Last administered on 06/24/21at 04:42; Start 06/24/21 at 04:30; Stop 06/24/21 at 04:31; Status DC Ondansetron HCl (Zofran) 4 mg PRN Q8HRS PRN IVP NAUSEA/VOMITING 1ST CHOICE; Start 06/24/21 at 04:45; Stop 06/25/21 at 04:44; Status DC Morphine Sulfate (Morphine Sulfate) 2 mg PRN Q3HRS PRN IVP SEVERE PAIN 7-10 Last administered on 06/24/21at 05:23; Start 06/24/21 at 04:45; Stop 06/25/21 at 04:44; Status DC Diltiazem HCl (Cardizem Iv Push) 10 mg 1X ONCE IVP Last administered on 06/24/21at 05:26; Start 06/24/21 at 05:30; Stop 06/24/21 at 05:31; Status DC Rivaroxaban (Xarelto) 15 mg DAILYWSUP PO Last administered on 06/25/21at 09:02; Start 06/25/21 at 09:00; Stop 06/25/21 at 13:23; Status DC Calcium Acetate (Phoslo) 667 mg QID@0800,1200,1700,2100 PO Last administered on 06/25/21at 11:45; Start 06/24/21 at 17:00; Stop 06/25/21 at 13:23; Status DC Insulin Glargine (Lantus Syringe) 14 unit QHS SQ Last administered on 06/24/21at 21:09; Start 06/24/21 at 21:00; Stop 06/25/21 at 13:23; Status DC Pioglitazone HCl (Actos) 30 mg DAILY PO Last administered on 06/25/21at 09:02; Start 06/24/21 at 12:00; Stop 06/25/21 at 13:23; Status DC Non-Formulary Medication (Sucroferric Oxyhydroxide (Velphoro)) 1 tab TID PO ; Start 06/24/21 at 14:00; Stop 06/25/21 at 13:23; Status DC Sodium Chloride 1,000 ml @ 1,000 mls/hr Q1H PRN IV hypotension; Start 06/24/21 at 11:45; Stop 06/24/21 at 17:44; Status DC Albumin Human 200 ml @ 200 mls/hr 1X PRN PRN IV Hypotension; Start 06/24/21 at 11:45; Stop 06/24/21 at 17:44; Status DC Sodium Chloride 1,000 ml @ 400 mls/hr Q2H30M PRN IV PATENCY; Start 06/24/21 at 11:45; Stop 06/24/21 at 23:44; Status DC Info (PHARMACY MONITORING -- do not chart) 1 each PRN DAILY PRN MC SEE COMMENTS; Start 06/24/21 at 11:45; Status UNV Info (PHARMACY MONITORING -- do not chart) 1 each PRN DAILY PRN MC SEE COMMENTS; Start 06/24/21 at 11:45; Stop 06/25/21 at 13:23; Status DC Diltiazem HCl (Cardizem 24hr Cd) 360 mg DAILY PO Last administered on 06/25/21at 09:02; Start 06/24/21 at 12:00; Stop 06/25/21 at 13:23; Status DC Acetaminophen (Tylenol) 650 mg PRN Q6HRS PRN PO MILD PAIN / TEMP > 100.3'F Last administered on 06/24/21at 18:59; Start 06/24/21 at 18:15; Stop 06/25/21 at 13:23; Status DC Active Scripts Active Reported Velphoro (Sucroferric Oxyhydroxide) 500 Mg Tab.chew 1 Tab PO TID 30 Days Xarelto (Rivaroxaban) 15 Mg Tablet 1 Tab PO DAILY 30 Days Colace (Docusate Sodium) 100 Mg Capsule 100 Mg PO PRN DAILY PRN Calcium Acetate 667 Mg Tablet 1 Tab PO QIDPMEDS 30 Days Cardizem Cd (Diltiazem Hcl) 360 Mg Cap.er.24h 300 Mg PO DAILY Cetirizine Hcl 10 Mg Tablet 1 Tab PO DAILY Lantus Solostar (Insulin Glargine,Hum.rec.anlog) 100 Unit/1 Ml Insuln.pen 14 Unit SQ QHS Lipitor (Atorvastatin Calcium) 40 Mg Tablet 1 Tab PO DAILY08 Actos (Pioglitazone Hcl) 30 Mg Tablet 1 Tab PO DAILY Vitals/I & O Vital Sign - Last 24 Hours 06/24/21 06/24/21 06/24/21 06/24/21 15:47 19:50 20:00 23:35 Temp 98.4 97.9 98.4 97.9 Pulse 107 91 110 Resp 20 20 B/P (MAP) 137/91 121/64 (83) 121/59 (79) Pulse Ox 98 96 O2 Delivery Room Air Room Air Nasal Cannula O2 Flow Rate 2.0 06/25/21 06/25/21 06/25/21 03:30 08:00 09:02 Temp 98.0 98.0 Pulse 107 107 Resp 20 B/P (MAP) 142/65 (90) 142/65 Pulse Ox 98 O2 Delivery Nasal Cannula Room Air O2 Flow Rate 2.0 Intake and Output 06/24/21 06/24/21 06/25/21 15:00 23:00 07:00 Intake Total 300 ml 230 ml Output Total 1700 ml Balance 300 ml -1700 ml 230 ml Justifications for Admission Other Justification LILLIAN MOYER MD Jun 25, 2021 14:20
--- NOTE | 2021-06-26 04:30 | DS ---
DATE OF DISCHARGE: 06/25/2021 HOSPITAL SUMMARY: A 61-year-old male with end-stage renal disease and diabetes, who came in with right lower quadrant and intermittent lower abdominal pain ____ CBC and chemistry profile was normal except potassium of 6.1 on admission, down to 5.4 after dialysis. COVID serology was negative. CT scan of the abdomen, chest, and pelvis showed no acute change at any time. The coronary artery calcification is present. He was dialyzed and potassium improved. His vital signs remained stable and his abdominal pain resolved. He has a history of atrial fibrillation and mildly elevated heart rate seemed to respond to resumption of his oral diltiazem and this time he is stable, comfortable and would be followed as an outpatient. FINAL DIAGNOSES: 1. Abdominal pain, etiology is undetermined. 2. Anemia, resolved. OPERATIONS, PROCEDURES, HEMODIALYSIS, COMPLICATIONS: None. CONSULTATIONS: Dr. Poole, Dr. Tobar. DISPOSITION: All home meds remain the same with insulin and Xarelto. Office followup as scheduled with all ____. High-fiber diet. Low-potassium intake. Good fluid intake. Prognosis is guarded. VALERIA/GRIFFIN/QUINN DR: VALERIA/aureliano TID: [id number]
== END 2021-06-25 12:35 | disposition home or self-care (01) ==
LOC: ER 23:43 → 6 SOUTH 06-24 04:00
PROVIDERS: ADMIT Family Medicine; ATTEND Family Medicine
DX: E87.5 Hyperkalemia (principal); Z20.822 Contact with and (suspected) exposure to COVID-19; I48.20 Chronic atrial fibrillation, unspecified; I13.2 Hypertensive heart and chronic kidney disease with heart failure and with stage 5 chronic kidney disease, or end stage renal disease; I50.9 Heart failure, unspecified; N18.6 End stage renal disease; D63.1 Anemia in chronic kidney disease; E11.22 Type 2 diabetes mellitus with diabetic chronic kidney disease; R10.31 Right lower quadrant pain; E78.00 Pure hypercholesterolemia, unspecified; E78.5 Hyperlipidemia, unspecified; F17.210 Nicotine dependence, cigarettes, uncomplicated; I25.10 Atherosclerotic heart disease of native coronary artery without angina pectoris; N25.81 Secondary hyperparathyroidism of renal origin; F17.200 Nicotine dependence, unspecified, uncomplicated; Z79.01 Long term (current) use of anticoagulants; Z79.4 Long term (current) use of insulin; Z79.899 Other long term (current) drug therapy; Z90.49 Acquired absence of other specified parts of digestive tract; Z99.2 Dependence on renal dialysis; Z98.890 Other specified postprocedural states
CPT/HCPCS: 36415; 71275; 74174; 80053; 82962; 83605; 83690; 84484; 85025; 86317; 86850; 86900; 86901; 87040; 87340; 87426; 93005; 96365; 96375; 96376; 99291; G0378; J0610; J1815; J2270; J2405; J2543; J3490; J7040; Q9967; U0003; U0005; G0379